=== PATIENT | female | born 1955 | race Caucasian/White ===

== ENCOUNTER → 2018-05-03 15:53 | Outpatient (CLI) | payer OTHER, SELFPAY ==
[2018-05-03 18:24] LABS: CRP < 2.90 mg/L (0.0-3.0)
[2018-05-05 16:10] LABS: Endomysial Antibody IgA Negative (Negative); Immunoglobulin A 257 mg/dL (87-352)
[2018-05-06 09:37] LABS: Hep C Antibodies 0.1 s/co ratio (0.0-0.9); t-Transglutaminase IgA <2 U/mL (0-3)
== END ==
PROVIDERS: Family Provider Physician Assistant; PCP Physician Assistant; Visit Provider Internal Medicine Gastroenterology
DX: R19.7 Diarrhea, unspecified (principal)
CPT/HCPCS: 36415; 82784; 83516; 86140; 86255; 86803

== ENCOUNTER → 2018-10-17 14:12 | Outpatient (CLI) | payer OTHER, SELFPAY ==
[2018-10-21 11:56] LABS: HPV HC, High Risk Negative (Negative)
== END ==
PROVIDERS: Visit Provider Obstetrics & Gynecology
DX: Z12.4 Encounter for screening for malignant neoplasm of cervix (principal); N95.0 Postmenopausal bleeding
CPT/HCPCS: 87624; 88175; G0145

== ENCOUNTER → 2020-06-12 11:31 | Outpatient (CLI) | payer OTHER, SELFPAY ==
[2020-06-12 13:14] LABS: ALB/GLOB Ratio 0.9 RATIO (0.9-2.4); AST(SGOT) 18 U/L (15-37); Alanine Aminotransfer ALT/SGPT 25 U/L (13-56); Albumin, Serum 3.7 g/dL (3.2-5.0); Alkaline Phosphatase 102 U/L (45-117); Anion Gap 0 (5-15); BUN 10 mg/dL (7-18); BUN/Creat Ratio 13.8 RATIO (10-20); Calcium,Total 9.5 mg/dL (8.5-10.1); Chloride 108 mmol/L (98-107); Cholesterol 220 mg/dL (200); Creatinine, Serum 0.73 mg/dL (0.55-1.02); EST Glomerular Filtration Rate 86 mL/min (>60); Est Glom Filt Rate - Afr Amer 104 mL/min (>60); Globulin 4.2 g/dL (2.2-4.2); Glucose 129 mg/dL (74-106); High Density Lipoprotein 56 mg/dL; Potassium 4.4 mmol/L (3.5-5.1); Protein, Total 7.9 g/dL (6.4-8.2); Sodium Level 141 mmol/L (136-145); Thyroid Stim Hormone (TSH) 0.28 uIU/mL (0.358-3.74); Triglycerides 104 mg/dL; Very Low Density Lipoprotein 21 mg/dL (5-40)
[2020-06-12 13:32] LABS: Microalbumin,Random Urine < 5.0 mg/L (NO RANGE EST.)
[2020-06-12 14:13] LABS: Vitamin B12 696 pg/mL (211-911); Vitamin D,25 Hydroxy 83.7 ng/mL
== END ==
PROVIDERS: Referring Provider Internal Medicine Endocrinology, Diabetes & Metabolism; Visit Provider Internal Medicine Endocrinology, Diabetes & Metabolism
DX: E03.8 Other specified hypothyroidism (principal); E06.3 Autoimmune thyroiditis; E10.42 Type 1 diabetes mellitus with diabetic polyneuropathy; E78.2 Mixed hyperlipidemia; K52.832 Lymphocytic colitis; E55.9 Vitamin D deficiency, unspecified
CPT/HCPCS: 36415; 80053; 80061; 82043; 82306; 82570; 82607; 84439; 84443

== ENCOUNTER → 2020-12-11 10:22 | Outpatient (CLI) | payer OTHER, SELFPAY ==
[2020-12-11 09:52] VITALS: BMI 21.9
[2020-12-11 12:57] LABS: Microalbumin,Random Urine 22.6 mg/L (NO RANGE EST.)
[2020-12-11 13:03] LABS: ALB/GLOB Ratio 0.8 RATIO (0.9-2.4); AST(SGOT) 18 U/L (15-37); Alanine Aminotransfer ALT/SGPT 25 U/L (13-56); Albumin, Serum 3.3 g/dL (3.2-5.0); Alkaline Phosphatase 127 U/L (45-117); Anion Gap 6 (5-15); BUN 8 mg/dL (7-18); BUN/Creat Ratio 10.3 RATIO (10-20); Calcium,Total 8.8 mg/dL (8.5-10.1); Chloride 105 mmol/L (98-107); Cholesterol 237 mg/dL (200); Creatinine, Serum 0.78 mg/dL (0.55-1.02); EST Glomerular Filtration Rate 80 mL/min (>60); Est Glom Filt Rate - Afr Amer 96 mL/min (>60); Glucose 143 mg/dL (74-106); High Density Lipoprotein 50 mg/dL; Potassium 3.7 mmol/L (3.5-5.1); Protein, Total 7.3 g/dL (6.4-8.2); Sodium Level 141 mmol/L (136-145); T4 Free Direct 1.49 ng/dL (0.76-1.46); Thyroid Stim Hormone (TSH) 1.99 uIU/mL (0.358-3.74); Triglycerides 117 mg/dL; Very Low Density Lipoprotein 23 mg/dL (5-40)
== END ==
PROVIDERS: PCP Physician Assistant; Referring Provider Internal Medicine Endocrinology, Diabetes & Metabolism; Visit Provider Internal Medicine Endocrinology, Diabetes & Metabolism
DX: E03.8 Other specified hypothyroidism (principal); E06.3 Autoimmune thyroiditis; E78.2 Mixed hyperlipidemia; E10.9 Type 1 diabetes mellitus without complications
CPT/HCPCS: 36415; 80053; 80061; 82043; 82570; 84439; 84443

== ENCOUNTER → 2021-07-21 12:46 | Outpatient (CLI) | payer OTHER, SELFPAY ==
--- NOTE | 2021-07-21 12:51 | CT_ITS ---
STUDY: CT ABDOMEN AND PELVIS WITH CONTRAST REASON FOR EXAM: Female, 66 years old. Enlarged lymph nodes. Diarrhea. RADIATION DOSAGE (If Supplied By Facility): CTDIvol = ( 11.165 ) mGy, DLP = ( 415.15 ) mGycm TECHNIQUE: Transaxial images were obtained from the dome of the diaphragm to the symphysis pubis without oral contrast. Oral and amp; IV Readi-CAT and amp; 100mL Isovue-370 was administered. Sagittal and coronal images were reconstructed. Individualized dose optimization techniques were used for this CT. COMPARISON: None. FINDINGS: The visualized lung bases are unremarkable. The visualized portions of the heart are within normal limits. There is decreased attenuation of the liver consistent with steatosis. Normal gallbladder and extrahepatic biliary system. Normal spleen. Normal pancreas. Normal bilateral adrenal glands. Normal right kidney. Normal left kidney. There is a small hiatal hernia. Normal small intestine. Moderate amount of fecal material is seen throughout the colon. The patient is status post appendectomy. Normal abdominal aorta. Normal inferior vena cava. Normal retroperitoneum. Normal urinary bladder. Distended urinary bladder. Normal abdominal wall. Normal osseous structures. CT/Abdomen/Pelvis WITH Contrast IMPRESSION: Moderate amount of fecal material is seen throughout the colon. Distended urinary bladder. Electronically Signed: Joe Alexander MD at 13:37 EDT , Service support ,
[2021-07-21 13:01] LABS: CREATININE FINGERSTICK 0.6 mg/dL (0.55-1.02); EGFR FINGERSTICK > 60.0000 mL/min (>60)
== END ==
PROVIDERS: PCP Physician Assistant; Referring Provider Surgery; Visit Provider Surgery
DX: R59.1 Generalized enlarged lymph nodes (principal)
CPT/HCPCS: 74177; Q9967; A4216

== ENCOUNTER → 2021-07-30 | Outpatient (CLI) | payer OTHER, SELFPAY ==
--- NOTE | 2021-07-30 13:00 | SOF_PTH ---
PATIENT: BABITA HAMM LOC: [facility] U#:[id number] AGE/SX: 66/F ROOM: RE07/30/[address]: Dr. Bri Chapman MD : 1955 BED: DIS: 07/30/2021 SPEC #: [id number] RECD: 07/30/21 15:33 STATUS: ROB REQ #: [id number] ASHIA: 07/30/21 13:[address]: Bri Chapman DEPT: SURGICAL PATHOLOGY RECD BY: Ana Roberts ENTERED: 07/31/21 11:53 SP TYPE: SOFT TISS OTHR DR: RUFINA Tran Tissues: Inguinal region, NOS Procedures: Surgery Specimen Level IV HEADER OPERATION: Right groin mass biopsy PRE-OP DIAGNOSIS: Right groin mass TISSUE SUBMITTED: Groin fluid cyst (too thick to aspirate), right groin mass MICROSCOPIC DIAGNOSIS Right groin cyst/mass, core biopsy: Fragments of fibroadipose tissue with minute fragment of benign lymphoid tissue. PETTY:[email or web address] 08/03/2021 COMMENT If there is high suspicion of lymphoma, excision of the lesion is suggested, if clinically indicated. Clinical correlation and appropriate follow up are necessary. Case has been reviewed in consultation with Dr. Gonzalez who concurs with the above diagnosis. IDC:AM MICROSCOPIC DESCRIPTION Slides are reviewed. GROSS DESCRIPTION Received in fixative is one container labeled with the patient's name and designated groin cyst/mass. The specimen consists of multiple irregular fragments of emerson soft tissue that in aggregate measure 2 x 0.5 x 0.1 cm. The specimen is totally submitted in one cassette. / PETTY:angelika 07/31/21 TC:5 CPT: 37547
== END | disposition home or self-care (01) ==
LOC: LABSPEC 16:17
PROVIDERS: PCP Physician Assistant; Referring Provider Surgery; Visit Provider Surgery
DX: R19.09 Other intra-abdominal and pelvic swelling, mass and lump (principal)
CPT/HCPCS: 88305

== ENCOUNTER 2021-08-19 08:22 | Day surgery (SDC) | payer OTHER, SELFPAY ==
[2021-08-19] VITALS (10 sets, daily range): BP systolic 74–112; BP diastolic 50–80; PULSE 49–67; RESP 10–18; TEMP 36.4–36.6; O2SAT 98–100; BMI 21.3
[2021-08-19] MEDS: Lactated Ringers 1,000 ML 100 ML IV ×2 (08:45→12:07)
--- NOTE | 2021-08-19 09:27 | PCM.HP.BLA ---
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 Is patient in pain?: No Allergies iodine Allergy (Severe, Verified 07/30/21 13:09) hives Penicillins Allergy (Severe, Verified 07/30/21 13:09) hives Medications zfjgyh-uawgraao-raddbhd 36,000-114,000-180,000 unit capsule,delay rel 2 cap PO TID #180 cap 06/12/20 [Rx Confirmed 07/30/21] Contour Next Test Strips #450 ea NS 09/22/20 [Rx Confirmed 07/30/21] Humalog U-100 Insulin 100 unit/mL subcutaneous solution 85 unit SC DAILY #80 ml NS 05/20/21 [Rx Confirmed 07/30/21] levothyroxine 100 mcg tablet See Rx Instructions PO DAILY #90 tab 05/20/21 [Rx Confirmed 07/30/21] diphenhydramine HCl 25 mg tablet 50 mg PO DIRECTED #1 tab 07/13/21 [Rx Confirmed 07/30/21] prednisone 50 mg tablet 50 mg PO DIRECTED #3 tab 07/13/21 [Rx Confirmed 07/30/21] ezetimibe 10 mg tablet 10 mg PO DAILY #90 tab 07/21/21 [Rx Confirmed 07/30/21] Is last menstrual period known: No Post menopausal: Yes Patient : No PFSH Medical History Diabetes type 1, controlled 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 Lymphadenopathy Lymphocytic colitis Mixed hyperlipidemia Osteopenia determined by x-ray Polyneuropathy due to type 1 diabetes mellitus Surgical History History of 3 sections History of appendectomy History of colonoscopy (~05/2018) Family History Father Heart disease CVA (cerebral vascular accident) Cancer skin Mother CVA (cerebral vascular accident) Heart disease Social History Smoking Status: Never smoker alcohol intake: current alcohol intake frequency: a few times a week Alcohol type: wine HPI HPI HPI: BABITA HAMM, is a 66 F who presents to the office today for aspiration versus biopsy of right groin cyst. CT abdomen pelvis was done just showed right groin cyst no obvious large lymph nodes in the right groin like previous ultrasound:, Left groin does have some smaller lymph nodes present. Patient still denies any pain in either groin. Exam Skin Other: Right groin palpable bulge about 1/2 to 2 cm consistent with the cyst seen on CT as well as bedside ultrasound, left groin some palpable smaller lymphadenopathy. Office Procedures Biopsy Provider Documentation Informed consent was obtained. The right groin was prepped draped in usual sterile fashion. Ultrasound guidance was used. 1% lidocaine with epinephrine was used for local anesthesia. 18-gauge needle was placed in the area of the cyst however no real fluid was obtained unsure if it was too thick or not. Did proceed with a biopsy of this area. 11 blade scalpel was used to make the incision in the skin. Initially used the achieved system and then did change the [employer] for additional biopsy. Biopsy specimens were sent to pathology. May be difficult to identify as there could be some other lymph node tissue that is in the biopsy that is not exactly from that cystic area. Incision was closed with Steri-Strips and OpSite. Patient tolerated procedure well. Alert Veterinary Science Teacher Yes Biopsy Lymphnode Biopsy: [id number] Lymphnode w Needle Procedure Time Out Time Out Informed consent given: Yes Consent signed: Yes Time out checklist: patient, procedure, site marked/identified, positioning of patient, supplies available, allergies confirmed and team agrees on procedure Time out date: 07/30/21 Time out time: 13:00 Assessment and Plan Assessment and Plan (1) Lymphadenopathy: Status: Acute (2) Groin cyst: Status: Acute Plan - Dr. Bri Chapman MD: Discussed with patient unsure the exact etiology of the right groin cyst. Unable to get an thing aspiration even though bedside ultrasound did show the needle was in the cyst. Call patient with pathology report. Follow-up depending on pathology report. Addendum: Did call patient with pathology report?benign lymphoid tissue. Since this still does not give us a good answer about the cyst did recommend patient having excision for definitive diagnosis. Described procedure including but not limited to risk of bleeding, infection, need for further surgery, and anesthesia. Patient was agreeable to proceed no further questions this time. Bri Chapman M.D. Pager: [phone] [facility] [address] [place] [address], [facility] [address] [place] [address] Office: [phone] Coding Level of Care Code Attention Veterinary Science Teacher Diagnoses Lymphadenopathy R59.1 Groin cyst CPT Codes Biopsy - Lymphnode Biopsy: 70470 Lymphnode w Needle ([id number]) 07/31/21 1247<Electronically signed by Bri Chapman MD>Date Bri Chapman MD
[2021-08-19] MEDS: Lidocaine 1% /Epi 1:100 (20ml) 20 ML Vial (11:00)
--- NOTE | 2021-08-19 11:01 | PCM.OPRPT ---
Report of Operation Date of Procedure: 08/19/21 Pre-Operative Diagnosis: Right groin cyst Post-Operative Diagnosis: Right femoral hernia Surgery/Procedure Performed:: Right femoral hernia repair with mesh Surgeon: Bri Chapman supervisor alteration workroom: Ruth Landeros Type of Anesthesia: Local MAC Anesthesiologist: Jose Luis Nassar Special Medications: Clindamycin 900 mg IV x1 Specimen's removed: None Estimated Blood Loss (mL): < 10 cc Description of Procedure: Indications: This is a 66-year-old female who developed presented with a right groin cyst. CT abdomen pelvis did not show an obvious hernia neither did exam. Attempted aspiration/biopsy which showed some benign lymphoid tissue. Patient was agreeable to exploration of the right groin. Description procedure: The patient was taken to the operating room. A timeout was completed verifying correct patient, procedure, site, positioning, and special equipment prior to beginning procedure. MAC anesthesia was induced. The right groin was prepped and draped in usual sterile fashion. An incision was marked in the natural skin crease overlying the cyst which was visualized with ultrasound. Local anesthesia of 1% lidocaine with epinephrine was used along the planned incision. Area was dissected and was found to have a femoral hernia about 7 mm in size, cyst was the actual hernia and this was opened to verify and just had serous fluid this was closed with 3-0 silk suture. Tissue was able to be reduced back into the abdomen. Half of the ultra Pro Monocryl/Prolene composite mesh was rolled into a cylinder and secured with silk sutures. This was placed in the femoral canal and sutured into place circumferentially with 3-0 silk sutures. Subdermal sutures of 3-0 Vicryl was used to close the incision and skin was closed with a running 4-0 Monocryl suture Steri-Strips and OpSite. Patient tolerated procedure well and sent to the postanesthesia care in stable condition. Grafts/Implants Used: Ultra Pro-Monocryl/Prolene composite lot [id number]
--- NOTE | 2021-08-19 11:07 | EX.PCM.DISCH ---
Discharge Instructions Diet Discharge Diet: Light diet - advance as tolerated Activity May shower in (days): 1 Lifting Restrictions: no lifting >20 lbs x 2 wks Dressing / Incision Call your doctor if your incision/area has: Continuous Slow Oozing, Sudden Increased Bleeding, Increased Pain/ Swelling, Increased Redness, Foul Smelling Discharge and Swelling at the incision site Call your doctor if you observe: Fever of 101 or Higher Remove Dressing in: 2 days Cleanse incision/area with: Soap & Water Additional Dressing/Incision Instructions:: Steri-Strips will fall off in 7 to 10 days, if they do not fall off okay to remove after 10 days. Follow Up Care Please Follow Up With: Bri Chapman MD When: Call the office for a follow-up appointment 2 weeks; after 5 PM and on the weekends call [phone] with any concerns. Test Results: Test results from this visit will be discussed in further detail at your follow-up appointment, if applicable. Discharge Plan Admission Attending Provider: Bri Chapman Primary Care Provider: Leigha Wiley Discharge Orders/Prescriptions Prescriptions: No Action Humulin U Insulin 100 unit/mL Suspension 10.4 unit SUBCUT DAILY RF: 0 levothyroxine 50 mcg Tablet 50 mcg PO SHELDON RF: 0 levothyroxine 100 mcg tablet 100 mcg PO MOTUWETHFRSA RF: 0 (DME) Contour Next Test Strips Strip See Rx Instructions .ROUTE .MEDSUPPLY Qty: 450 RF: 3 ezetimibe 10 mg tablet 10 mg PO DAILY Qty: 90 RF: 3 Referrals / Follow Up: Leigha Wiley PA [Primary Care Provider] - Disposition Disposition (needs filled in before D/C Order can be placed): Home, Self Care
== END 2021-08-19 13:54 | disposition home or self-care (01) ==
LOC: SDC 08:23 → AC 08:23
PROVIDERS: PCP Physician Assistant; Referring Provider Surgery; Visit Provider Surgery
PROC: (CPT 49553; principal; 2021-08-19 09:50)
DX: K41.30 Unilateral femoral hernia, with obstruction, without gangrene, not specified as recurrent (principal); E10.42 Type 1 diabetes mellitus with diabetic polyneuropathy; E78.2 Mixed hyperlipidemia; E06.3 Autoimmune thyroiditis; Z79.4 Long term (current) use of insulin; Z96.41 Presence of insulin pump (external) (internal); Z79.52 Long term (current) use of systemic steroids; Z79.899 Other long term (current) drug therapy; Z20.822 Contact with and (suspected) exposure to COVID-19
CPT/HCPCS: 49553; 87426; C9803; J7120; C1781; J2405

== ENCOUNTER 2021-12-15 10:58 | Outpatient (CLI) | payer OTHER, SELFPAY ==
[2021-12-15 13:03] LABS: Vitamin D,25 Hydroxy 86.4 ng/mL
[2021-12-15 13:15] LABS: ALB/GLOB Ratio 0.8 RATIO (0.9-2.4); AST(SGOT) 17 U/L (15-37); Alanine Aminotransfer ALT/SGPT 31 U/L (13-56); Albumin, Serum 3.5 g/dL (3.2-5.0); Alkaline Phosphatase 116 U/L (45-117); Anion Gap 2 (5-15); BUN 18 mg/dL (7-18); BUN/Creat Ratio 24.9 RATIO (10-20); Calcium,Total 8.9 mg/dL (8.5-10.1); Chloride 106 mmol/L (98-107); Cholesterol 185 mg/dL (200); Creatinine, Serum 0.72 mg/dL (0.55-1.02); EST Glomerular Filtration Rate 86 mL/min (>60); Est Glom Filt Rate - Afr Amer 104 mL/min (>60); Globulin 4.2 g/dL (2.2-4.2); Glucose 237 mg/dL (74-106); High Density Lipoprotein 61 mg/dL; Potassium 4.4 mmol/L (3.5-5.1); Protein, Total 7.7 g/dL (6.4-8.2); Sodium Level 138 mmol/L (136-145); T4 Free Direct 1.36 ng/dL (0.76-1.46); Thyroid Stim Hormone (TSH) 2.04 uIU/mL (0.358-3.74); Triglycerides 68 mg/dL; Very Low Density Lipoprotein 14 mg/dL (5-40)
[2021-12-15 13:21] LABS: Microalbumin:Creatinine Ratio 11.8 mg/g CRE (<30 mg/g CRE)
== END 2021-12-15 23:59 | disposition short-term general hospital (02) ==
LOC: BIMLAB 10:59
PROVIDERS: PCP Physician Assistant; Referring Provider Internal Medicine Endocrinology, Diabetes & Metabolism; Visit Provider Internal Medicine Endocrinology, Diabetes & Metabolism
DX: E10.42 Type 1 diabetes mellitus with diabetic polyneuropathy (principal); E03.8 Other specified hypothyroidism; E06.3 Autoimmune thyroiditis; E55.9 Vitamin D deficiency, unspecified; M85.80 Other specified disorders of bone density and structure, unspecified site; Z96.41 Presence of insulin pump (external) (internal)
CPT/HCPCS: 36415; 80053; 80061; 82043; 82306; 82570; 84439; 84443

== ENCOUNTER 2022-02-18 08:57 | Outpatient (CLI) | payer MEDICARE, OTHER, SELFPAY ==
--- NOTE | 2022-02-18 09:07 | BD_ITS ---
STUDY: DUAL ENERGY X-RAY ABSORPTIOMETRY / DXA REASON FOR EXAM: Female, 67 years old. Osteopenia TECHNIQUE: Bone Mineral Density (BMD) measurements of lumbar spine and bilateral hips were obtained. COMPARISON: None. FINDINGS: Lumbar Spine (L1-L4): g/cm2 (0.681) / T-score (-3.3) / Z-score (-1.6) Findings are suggestive of osteoporosis with a high fracture risk. Left Femur Total: g/cm2 (0.644) / T-score (-2.4) / Z-score (-1.2) Left Femoral Neck: g/cm2 (0.457) / T-score (-3.5) / Z-score (-2.0) Right Femur Total: g/cm2 (0.612) / T-score (-2.7) / Z-score (-1.5) Right Femoral Neck: g/cm2 (0.499) / T-score (-3.2) / Z-score (-1.6) BD/Dexa Bone Density Study IMPRESSION: The patient is considered osteoporotic as outlined below according to World Chandler Organization (WHO) criteria with a high fracture risk. Reference Information: The T-score is the number of standard deviations above or below the standard which is normal for young adults at their peak bone mineral density. The World Health Organization (WHO) interprets the T-scores as follows: Above -1 Normal bone density Between -1 and -2.5 Osteopenia Equal to / or below -2.5 Osteoporosis As a practical clinical guideline, osteopenia may be graded as follows: Mild -1 through -1.5 Moderate -1.6 through -2.0 Severe -2.1 through -2.4 The Z-score is the number of standard deviations above or below age-matched controls. A Z-score of less than -1.5 would be considered abnormal. References: 1. NIH Osteoporosis and Related Bone Diseases www osteo.org 2. International Society for Clinical Densitometry www iscd.org 3. National Osteoporosis Foundation www nof.org Electronically Signed: Joe Alexander MD at 14:41 EDT ,
== END 2022-02-18 23:59 | disposition home or self-care (01) ==
PROVIDERS: PCP Physician Assistant; Referring Provider Internal Medicine Endocrinology, Diabetes & Metabolism; Visit Provider Internal Medicine Endocrinology, Diabetes & Metabolism
DX: M85.89 Other specified disorders of bone density and structure, multiple sites (principal)
CPT/HCPCS: 77080

== ENCOUNTER → 2022-06-29 | Outpatient (CLI) | payer MEDICARE, OTHER, SELFPAY ==
[2022-06-29 14:50] VITALS: BP 120/60; PULSE 68; RESP 16; TEMP 37.1; O2SAT 97; BMI 21.1
[2022-06-29] MEDS: Zoledronic Acid 5 MG 100 ML 300 MG IV (14:54)
[2022-06-29] MEDS: 0.9% NaCl IVPB Med Flush (250 mL) 15 ML IV (14:55)
[2022-06-29] MEDS: 0.9% NaCl Peripheral Flush Adult/Peds IV (14:55)
[2022-06-29 15:25] VITALS: BP 110/63; PULSE 63; RESP 16; TEMP 37.1; O2SAT 96
== END | disposition home or self-care (01) ==
LOC: MEDOUTP 14:33
PROVIDERS: PCP Physician Assistant; Referring Provider Internal Medicine Endocrinology, Diabetes & Metabolism; Visit Provider Internal Medicine Endocrinology, Diabetes & Metabolism
DX: M85.80 Other specified disorders of bone density and structure, unspecified site (principal)
CPT/HCPCS: 96365; J7050; A4216; J3489

== ENCOUNTER → 2023-02-08 | Outpatient (CLI) | payer MEDICARE, OTHER, SELFPAY ==
[2023-02-08 17:00] LABS: ALB/GLOB Ratio 0.8 RATIO (0.9-2.4); AST(SGOT) 23 U/L (15-37); Alanine Aminotransfer ALT/SGPT 31 U/L (13-56); Albumin, Serum 3.6 g/dL (3.2-5.0); Alkaline Phosphatase 86 U/L (45-117); Anion Gap 6 (5-15); BUN 16 mg/dL (7-18); BUN/Creat Ratio 20.6 RATIO (10-20); Calcium,Total 9.1 mg/dL (8.5-10.1); Chloride 108 mmol/L (98-107); Cholesterol 183 mg/dL (200); Creatinine, Serum 0.78 mg/dL (0.55-1.02); EST Glomerular Filtration Rate 79 mL/min (>60); Est Glom Filt Rate - Afr Amer 96 mL/min (>60); Globulin 4.4 g/dL (2.2-4.2); Glucose 135 mg/dL (74-106); High Density Lipoprotein 53 mg/dL; Sodium Level 141 mmol/L (136-145); T4 Free Direct 1.25 ng/dL (0.76-1.46); Thyroid Stim Hormone (TSH) 1.48 uIU/mL (0.358-3.74); Triglycerides 70 mg/dL; Very Low Density Lipoprotein 14 mg/dL (5-40)
[2023-02-10 13:05] LABS: C-Peptide < 0.1 ng/mL (1.1-4.4)
== END | disposition home or self-care (01) ==
LOC: BIMLAB 11:44
PROVIDERS: Nurse Practitioner Family; PCP Physician Assistant; Referring Provider Internal Medicine Endocrinology, Diabetes & Metabolism; Visit Provider Internal Medicine Endocrinology, Diabetes & Metabolism
DX: E10.42 Type 1 diabetes mellitus with diabetic polyneuropathy (principal); E03.8 Other specified hypothyroidism; E06.3 Autoimmune thyroiditis; E55.9 Vitamin D deficiency, unspecified; M85.80 Other specified disorders of bone density and structure, unspecified site; Z96.41 Presence of insulin pump (external) (internal)
CPT/HCPCS: 36415; 80053; 80061; 82306; 84439; 84443; 84681

== ENCOUNTER 2023-07-12 12:28 | Outpatient (CLI) | payer MEDICARE, OTHER, SELFPAY ==
[2023-07-12 13:09] VITALS: BP 97/65; PULSE 64; RESP 16; TEMP 36.6; O2SAT 99; BMI 21.9
[2023-07-12] MEDS: Zoledronic Acid 5 MG 100 ML 300 MG IV (13:15)
[2023-07-12] MEDS: 0.9% NaCl Peripheral Flush Adult/Peds IV (13:15)
[2023-07-12 13:43] VITALS: BP 100/61; PULSE 61
== END 2023-07-12 12:29 | disposition home or self-care (01) ==
LOC: MEDOUTP 12:30
PROVIDERS: PCP Physician Assistant; Referring Provider Internal Medicine Endocrinology, Diabetes & Metabolism; Visit Provider Internal Medicine Endocrinology, Diabetes & Metabolism
DX: M85.80 Other specified disorders of bone density and structure, unspecified site (principal)
CPT/HCPCS: 96365; A4216; J3489

== ENCOUNTER → 2024-05-08 | Outpatient (CLI) | payer MEDICARE, OTHER, SELFPAY ==
[2024-05-08 13:32] LABS: Vitamin D,25 Hydroxy 40.5 ng/mL
[2024-05-08 13:39] LABS: ALB/GLOB Ratio 0.9 RATIO (0.9-2.4); AST(SGOT) 29 U/L (15-37); Alanine Aminotransfer ALT/SGPT 30 U/L (13-56); Albumin, Serum 3.5 g/dL (3.2-5.0); Alkaline Phosphatase 67 U/L (45-117); Anion Gap 2 (5-15); BUN 18 mg/dL (7-18); BUN/Creat Ratio 27.1 RATIO (10-20); Calcium,Total 8.9 mg/dL (8.5-10.1); Chloride 107 mmol/L (98-107); Cholesterol 169 mg/dL (200); Creatinine, Serum 0.66 mg/dL (0.55-1.02); EST Glomerular Filtration Rate 94 mL/min (>60); Est Glom Filt Rate - Afr Amer 114 mL/min (>60); Globulin 4.1 g/dL (2.2-4.2); Glucose 87 mg/dL (74-106); High Density Lipoprotein 59 mg/dL; Potassium 3.6 mmol/L (3.5-5.1); Protein, Total 7.6 g/dL (6.4-8.2); Sodium Level 139 mmol/L (136-145); T4 Free Direct 1.22 ng/dL (0.76-1.46); Thyroid Stim Hormone (TSH) 0.42 uIU/mL (0.358-3.74); Triglycerides 53 mg/dL; Very Low Density Lipoprotein 11 mg/dL (5-40)
[2024-05-08 14:27] LABS: Microalbumin,Random Urine 19.2 mg/L (NO RANGE EST.); Microalbumin:Creatinine Ratio 45.4 mg/g CRE (<30 mg/g CRE)
== END | disposition home or self-care (01) ==
PROVIDERS: PCP Physician Assistant; Referring Provider Internal Medicine Endocrinology, Diabetes & Metabolism; Visit Provider Internal Medicine Endocrinology, Diabetes & Metabolism
DX: E10.42 Type 1 diabetes mellitus with diabetic polyneuropathy (principal); E78.2 Mixed hyperlipidemia; M85.80 Other specified disorders of bone density and structure, unspecified site; E03.8 Other specified hypothyroidism; E06.3 Autoimmune thyroiditis; Z96.41 Presence of insulin pump (external) (internal); E55.9 Vitamin D deficiency, unspecified
CPT/HCPCS: 36415; 80053; 80061; 82043; 82306; 82570; 84439; 84443

== ENCOUNTER 2024-07-12 13:53 | Outpatient (CLI) | payer MEDICARE, OTHER, SELFPAY ==
[2024-07-12 14:06] VITALS: BP 116/62; PULSE 62; RESP 16; TEMP 36.2; O2SAT 99; BMI 22.3
[2024-07-12] MEDS: Zoledronic Acid 5 MG 100 ML 300 MG IV (14:32)
[2024-07-12] MEDS: 0.9% NaCl Peripheral Flush Adult/Peds IV (14:34)
[2024-07-12 14:59] VITALS: BP 104/66; PULSE 57
== END 2024-07-12 23:59 | disposition home or self-care (01) ==
LOC: MEDOUTP 13:54
PROVIDERS: PCP Physician Assistant; Referring Provider Internal Medicine Endocrinology, Diabetes & Metabolism; Visit Provider Internal Medicine Endocrinology, Diabetes & Metabolism
DX: M81.0 Age-related osteoporosis without current pathological fracture (principal)
CPT/HCPCS: 96365; A4216; J3489

== ENCOUNTER → 2025-06-03 | Outpatient (CLI) | payer MEDICARE, OTHER, SELFPAY ==
[2025-06-03 11:27] LABS: Creatinine, Urine (random) 157.00 mg/dL (28.00-217.00); Microalbumin,Random Urine < 12.0 mg/L (<20 mg/L)
[2025-06-03 12:11] LABS: AST(SGOT) 31 U/L (<=31); Alanine Aminotransfer ALT/SGPT 29 U/L (<=34); Albumin, Serum 3.9 g/dL (3.4-4.8); Alkaline Phosphatase 67 U/L (35-104); Anion Gap 10 (5-15); BUN 10 mg/dL (4-19); BUN/Creat Ratio 15.4 RATIO (10-20); Calcium,Total 9.1 mg/dL (7.6-11.0); Carbon Dioxide 25.3 mmol/L (21.0-32.0); Chloride 105 mmol/L (98-108); Cholesterol 212 mg/dL (<=200); Globulin 3.2 g/dL (2.2-4.2); Glucose 141 mg/dL (70-99); Low Density Lipoprotein Calc. 137 mg/dL; Potassium 3.8 mmol/L (3.3-5.1); Triglycerides 111 mg/dL; Very Low Density Lipoprotein 22 mg/dL (5-40); cholesterol:hdl ratio screen 3.98
[2025-06-03 12:12] LABS: Vitamin D,25 Hydroxy 38.7 ng/mL (30-100)
--- OUTSIDE RECORDS SUMMARY | 2025-06-03 19:56 | XMS RPT_ITS | CCD ---
Author Organization [facility] Care Team Providers Care Anchor Operator Name Role Phone TANNER KELLER Unavailable Unavailable Lomeli PA, PA Leigha Primary Care Provider Lomeli PA, PA Leigha Referring Provider Dr. Tricia Dey Attending Provider Lomeli PA, PA Leigha Primary Care Provider Lomeli PA, PA Leigha Referring Provider Dr. Tricia Dey Attending Provider Lomeli PA, PA Leigha Primary Care Provider Lomeli PA, PA Leigha Referring Provider Dr. Tricia Dey Attending Provider Lomeli PA, PA Leigha Primary Care Provider Lomeli PA, PA Leigha Referring Provider Dr. Tricia Dey Attending Provider Lomeli PA-C, Leigha J Unavailable Lomeli PA-C, Leigha J Unavailable Gastroenterology Provider Unavailable Vishal Vail MD, Dr. Escobar Unavailable Danette SRINIVASAN, Dr. Corona Guallpa Unavailable Vascular Surgeon Unavailable Unavailable General Surgery Provider Unavailable Unavail clifton Kathleen MD, Deysi Summers Unavailable Jessy Denton LPN Unavailable Tigre Estrella MD Unavailable Ruben ACEVEDO, Sharron Collins Unavailable Unavailable Juani Mckoy LPN Unavailable Unavailable Elvin Howe MD Unavailable Edgardo PADeliaC, Caroline Muñoz Unavailable NET MAKER-C, Arcenio Pepe Unavailable [phone] Beti BUSTOS, Caroline Astudillo Unavailable Unavaila ble Yared BUSTOS, Ivania Unavailable Mutersbaugh METAL FURNITURE GLAZIER, Mary Jo K Unavailable Unavai lable Anaya, Reyna L Unavailable Richert METAL FURNITURE GLAZIER, Brook L Unavailable Unavailab le Miguel METAL FURNITURE GLAZIER, Deysi M Unavailable Unavailab le Wengerd METAL FURNITURE GLAZIER, Ally Unavailable Unavailabl e Fenwick METAL FURNITURE GLAZIER, Vanessa N Unavailable Unavaila ble Unavailable Unavailable Ty SAMUELSC, Antoinette Quigley Unavailable Nilo METAL FURNITURE GLAZIER, Nora Borden Unavailable Unavailab le Cristina Badillo Unavailable Unavailable LOMELI, LEIGHA J Primary Care Unavailable LOMELI, LEIGHA J Consulting Unavailable LOMELI, LEIGHA J Attending Unavailable LOMELI, LEIGHA J Admitting Unavailable PROVIDER, UNKNOWN Consulting Unavailable LOMELI, LEIGHA J Consulting Unavailable TRICIA DEY MD Admitting Unavailable TRICIA DEY MD Primary Care Unavailable TRICIA DEY MD Attending Unavailable PROVIDER, UNKNOWN Consulting Unavailable Sarah Adkins Unavailable Unavailable Eva Prince MA Unavailable Unavailable Tricia Dey Attending Unavailable Tricia Dey Referring Unavailable Lomeli PA, Leigha Primary Care Unavailable Tricia Dey Attending Unavailable Lomeli PA, Leigha Primary Care Unavailable Lomeli PA, Leigha Referring Unavailable Tricia Dey Attending Unavailable Lomeli PA, Leigha Referring Unavailable Lomeli PA, Leigha Primary Care Unavailable Tricia Dey Attending Unavailable Lomeli PA, Leigha Referring Unavailable Lomeli PA, Leigha Primary Care Unavailable Tricia Dey Attending Unavailable Lomeli PA, Leigha Referring Unavailable Lomeli PA, Leigha Primary Care Unavailable Tricia Dey Attending Unavailable Tricia Dey Referring Unavailable Lomeli PA, Leigha Primary Care Unavailable Lomeli PA, Leigha Primary Care Provider Lomeli PA, Leigha Referring Provider [phone] King ZARINA, Dr. Santo Attending Provider Dr. Tricia Dey MD Referring Provider Allergies Allergy Classification Reported Allergen(s) Allergy Type Date of Onset Reaction(s) Facility Penicillins (antibiotic) (2 sources) Penicillins Drug Allergy [facility], [facility], [email or web address]. Povidone-Iodine (2 sources) Povidone-Iodine Drug Allergy [facility], [employer] [facility] (5 sources) Iodine Drug Allergy [address] [facility] (20 sources) Penicillins; Translations: [Penicillins] Allergy to substance 2 [facility], Edema [facility] (20 sources) Povidone-Iodine; Translations: [BETADINE] Drug Allergy [email or web address] (1 source) Penicillin Drug Allergy [facility] (1 source) Iodine Drug Allergy 5 [facility] Medications Current Medications Medication Drug Class(es) Dates Sig (Normalized) Sig (Original) cholecalciferol 0.125 mg oral capsule (20 sources) Vitamin D Start: 02-09-2024 Cholecalciferol (Vitamin D3) 125 mcg (5,000 unit) capsule Active 125 ug PO .3 times per week February 09, 2024 11:30am Start: 11-11-2022 End: 02-09-2024 take 1 capsule by mouth once daily Cholecalciferol (Vitamin D3) 125 mcg (5,000 unit) capsule Discontinued 125 ug PO DAILY November 11, 2022 1:00am February 09, 2024 11:31am Start: 05-13-2022 End: 11-11-2022 take 1 capsule by mouth once daily Cholecalciferol (Vitamin D3) 250 mcg (10,000 unit) capsule Discontinued 250 ug PO DAILY May 13, 2022 12:00am November 11, 2022 12:18pm take 1 tablet by th once daily Vitamin D 50 MCG (1999 UT) Oral Tablet ; daily (50 MCG (1999 UT)) Vitamin D3 125 m cg (5,000 unit) tablet ; 1 tab Mon, Wed, Tuesday (125 mcg (5,000 uni) CoQ10 SG 100 (12 sources) CoQ10 SG 100 insulin lispro 100 unt/ml injectable solution (20 sources) Insulin Analog Start: 12-15-2021 End: 06-03-2025 Insulin Lispro (Humalog U-100 Insulin) 100 unit/mL solution Active 85 U SC DAILY 80 3 June 03, 2025 10:34am Start: 12-15-2021 End: 12-15-2021 Insulin Lispro 100 unit/mL solution Discontinued 1 sliding scale dose continuous subcutaneous infusion December 15, 2021 1:00am December 15, 2021 11:41am Start: 08-25-2020 End: 05-20-2021 Insulin Lispro (Humalog U-10 0 Insulin) 100 unit/mL solution Discontinued 85 U SC DAILY 80 3 January 09, 2021 4:51pm May 20, 2021 1:04pm Start: 06-12-2020 End: 08-25-2020 Insulin Lispro 100 unit/mL solution Discontinued 75 U SC .continuously 10 0 June 12, 2020 12:00am August 25, 2020 11:35am via insulin pump Start: 03-16-2016 inject 1 [IU] by sub cutaneous injection once, then inject 0.25 [IU] by subcutaneous injection every hour HUMALOG, 100UNIT/ML (Subcutaneous Solution) ; as directed per insulin pump for 0 days Quantity: 6 {Vial} Refills: 3 Ordered: 16-Mar-2016 MD Deysi Kathleen Start: 16-Mar-2016 Comments: Mail order. average basal rate: 14.58units/24 hours; 1 unit per 10g [id number] 0.3 U/h, 2am-4am 0.3 U/h, ,4am-6am 0.65 U/h, 6-10am 0.75 U/h, 10a-5:30p 0.7 U/h 5:30-11pm 0.65 U/h, 11pm-12am 0.25 U/h Comment on above: Mail order. average basal rate: 14.58units/24 hours; 1 unit per 10g [id number] 0.3 U/h, 2am-4am 0.3 U/h, ,4am-6am 0.65 U/h, 6-10am 0.75 U/h, 10a-5:30p 0.7 U/h 5:30-11pm 0.65 U/h, 11pm-12am 0.25 U/h Insulin Zinc Extended Human (Humulin U Insulin) 100 unit/mL Suspension (5 sources) Start: 08-18-2021 Insulin Zinc Extended Human (Humulin U Insulin) 100 unit/mL Suspension Active 10.4 UNIT SC DAILY August 18, 2021 8:15am Start: 08-18-2021 End: 11-11-2022 Insulin Zinc Extended Human (Humulin U Insulin) 100 unit/mL Suspension Discontinued 10.4 U SC DAILY August 18, 2021 12:00am November 11, 2022 12:19pm BASAL RATE/PUMP Start: 08-18-2021 End: 11-11-2022 Insulin Zinc Extended Human (Humulin U Insulin) 100 unit/mL Suspension Discontinued 10.4 UNIT SC DAILY August 18, 2021 12:00am November 11, 2022 12:19pm Start: 08-18-2021 Insulin Zinc E xtended Human (Humulin U Insulin) 100 unit/mL Suspension Active 10.4 UNIT SC DAILY August 18, 2021 12:00am MCT Oil (12 sources) MCT Oil Multivitamin (Daily Multi-Vitamin) tablet (4 sources) Start: 05-13-2022 Multivitamin ( Daily Multi-Vitamin) tablet Active 1 {tbl} PO DAILY May 13, 2022 12:00am Start: 05-13-2022 take 1 tablet by sulaiman th once daily Multivitamin (Daily Multi-Vitamin) tablet Active 1 TABLET PO DAILY May 13, 2022 12:00am Multivitamin Oral Tablet (20 sources) Multivitamin Ora l Tablet ; daily omega 8-gcy-pew-fish oil (12 sources) omega 3-dha-epa- fish oil Zinc Gluconate (12 sources) zinc gluconate ; 1 on M, W, F 100 ml zoledronic acid 0.05 mg/ml injection (8 sources) Bisphosphonate Start: 06-14-2022 End: 06-03-2025 Zoledronic Gojd-Uvcyfzof-Ygdth 5 mg/100 mL piggyback Active 1 NMA .Route ONCE 100 0 June 03, 2025 10:48am infuse over 20 minutes Completed/Discontinued Medications Medication Drug Class(es) Dates Sig (Normalized) Sig (Original) [id number] 200 actuat albuterol 0.09 mg/actuat metered dose inhaler (20 sources) beta2-Adrenergic Agonist Start: 11-10-2023 End: 02-09-2024 Albuterol Sulfate 90 mcg/actuation HFA aerosol inhaler Discontinued 2 NMA INHALATION EVERY 6 HOURS as needed for shortness of breath or wheezing 6.7 0 November 10, 2023 1:00am February 09, 2024 11:08am Start: 11-17-2018 End: 12-10-2019 take 2 puff(s) by inhalation every four to six hours as needed ProAir HFA 108 (90 Base) MCG/ACT Inhalation Aerosol Solution ; 2 (two) Puff Puff every 4-6 hours as needed for 0 days Quantity: 1 {Inhaler} Refills: 0 Ordered: 10-Dec-2019 FACUNDO Lomeli Start: 17-Nov-2018 End: 10-Dec-2019 Status: Inactive Comments: Medication taken as needed. ok to substitute with ventolin if cheaper Comment on above: Medication taken as needed. ok to substitute with ventolin if cheaper aspirin 81 mg chewable tablet (20 sources) Platelet Aggregation Inhibitor, Nonsteroidal Anti-inflammatory Drug Start: 11-17-2016 End: 12-17-2016 take 1 tablet by mouth once daily Aspirin Low Dose 81 MG Oral Tablet Chewable ; 1 (one) Tablet Chewable daily for 30 days Quantity: 30 {Tablet} Refills: 0 Ordered: 19-Jan-2017 ANA Dey Start: 17-Nov-2016 End: 17-Dec-2016 Status: Inactive Comments: otc take 1 tablet by mouth once juan y ASPIRIN LOW DOSE, 81MG (Oral Tablet) ; 1 daily (81 MG) Status: Inactive Comment on above: otc azithromycin 250 mg oral tablet (20 sources) Macrolide Antimicrobial Start: 11-26-2020 End: 12-01-2020 Zithromax Z-Susu 250 MG Oral Tablet ; 2 (two) Tabs day one, then one daily for 4 days for 5 days Quantity: 1 {Tablet} Refills: 0 Ordered: 26-Nov-2020 FACUNDO Lomeli Start: 26-Nov-2020 End: 01-Dec-2020 Status: Inactive Start: 11-17-2018 End: 11-22-2018 Azithromycin 250 MG Oral Tab let ; 2 (two) Tablet today and then 1 tablet daily x 4 days for 5 days Quantity: 1 {Package} Refills: 0 Ordered: 17-Nov-2018 FACUNDO Lomeli Start: 17-Nov-2018 End: 22-Nov-2018 Status: Inactive Start: 05-06-2015 End: 05-11-2015 AZITHROMYCIN, 250MG (Oral Ta blet) ; 1 (one) Tablet today, then 1 tablet daily for 4 days for 5 days Quantity: 6 {Tablet} Refills: 0 Ordered: 06-May-2015 MD Deysi Kathleen Start: 06-May-2015 End: 11-May-2015 Status: Inactive Start: 02-03-2011 End: 02-06-2011 take 1 tablet by mouth once daily ZITHROMAX TRI-SUSU, 500MG (Oral Tablet) ; 1 tablet Tablet daily for 3 days Quantity: 3 {Tablet} Refills: 0 Ordered: 03-Feb-2011 KRISTINA Williamson Start: 03-Feb-2011 End: 06-Feb-2011 Status: Inactive betamethasone 0.5 mg/ml / clotrimazole 10 mg/ml topical cream (20 sources) Azole Antifungal, Corticosteroid Start: 09-22-2016 End: 08-17-2017 Lotrisone 1-0.05 % External Cream ; 1 (one) Cream two times daily for 0 days Quantity: 15 {Gram} Refills: 0 Ordered: 17-Aug-2017 KRISTINA Mckoy Start: 22-Sep-2016 End: 17-Aug-2017 Status: Inactive Calcium Carbonate / Ergocalciferol (20 sources) Provitamin D2 Compound Calcium-Vitamin D Status: Inactive Cinnamon Bark (20 sources) Cinnamon Status: Inactive ciprofloxacin 250 mg oral tablet (20 sources) Quinolone Antimicrobial Start: 02-08-2013 End: 02-13-2013 take 1 tablet by mouth twice daily CIPRO, 250MG (Oral Tablet) ; 1 Tablet BID for 5 days Quantity: 10 {Tablet} Refills: 0 Ordered: 08-Feb-2013 FACUNDO Lomeli Start: 08-Feb-2013 End: 13-Feb-2013 Status: Inactive estradiol 0.1 mg/ml vaginal cream (20 sources) Estrogen Start: 10-01-2021 End: 07-13-2023 estradioL 0.01% (0.1 mg/gram) vaginal cream ; 0.5 gram daily x 1 week and then use 1-3 times per week as needed for 0 days Quantity: 42.5 {Gram} Refills: 0 Ordered: 13-Jul-2023 KRISTINA Rivera Start: 01-Oct-2021 End: 13-Jul-2023 Status: Inactive Comments: Medication taken as needed. Comment on above: Medication taken as needed. estrogens, conjugated (mcc) 0.625 mg/ml vaginal cream (20 sources) Estrogen Start: 09-23-2021 End: 10-01-2021 Premarin 0.625 MG/GM Vaginal Cream ; 0.5 gram daily x 2 weeks and then decrease to twice a week for 0 days Quantity: 45 {Gram} Refills: 1 Ordered: 01-Oct-2021 FACUNDO Lomeli Start: 23-Sep-2021 End: 01-Oct-2021 Status: Inactive ezetimibe 10 mg oral tablet (20 sources) Dietary Cholesterol Absorption Inhibitor Start: 12-12-2020 End: 06-03-2025 take 1 tablet by mouth once daily Ezetimibe 10 mg tablet Discontinued 10 mg PO DAILY 90 3 April 05, 2022 3:48pm February 08, 2023 10:24am Fish Oil Concentrate (20 sources) Fish Oil Concentrate Status: Inactive 120 actuat fluticasone propionate 0.044 mg/actuat metered dose inhaler (20 sources) Corticosteroid Start: 11-26-2020 End: 07-13-2023 take 2 puff(s) by inhalation twice daily Flovent HFA 44 mcg/actuation aerosol inhaler ; 2 (two) Puff BID for 0 days Quantity: 1 {Inhaler} Refills: 0 Ordered: 13-Jul-2023 KRISTINA Rivera Start: 26-Nov-2020 End: 13-Jul-2023 Status: Inactive homatropine methylbromide 0.3 mg/ml / HYDROcodone bitartrate 1 mg/ml oral solution (20 sources) Opioid Agonist, Cholinergic Muscarinic Agonist Start: 02-03-2011 End: 02-13-2011 HYDROCODONE-HOMAT ROPINE, 5-1.5MG/5ML (Oral Syrup) ; 1 (one) teaspoon(s) every four hours as needed for cough for 10 days Quantity: 4 {ounce(s)} Refills: 0 Ordered: 03-Feb-2011 KRISTINA Williamsonity Carlos Start: 03-Feb-2011 End: 13-Feb-2011 Status: Inactive Comments: Medication taken as needed. May cause drowsiness Comment on above: Medication taken as needed. May cause drowsiness ketoconazole 20 mg/ml topical cream (20 sources) Azole Antifungal Start: 08-17-2017 End: 04-13-2018 Ketoconazole 2 % External Cream ; 1 (one) application(s) Twice daily for 0 days Quantity: 60 {Gram} Refills: 1 Ordered: 13-Apr-2018 KRISTINA Aguilar Start: 17-Aug-2017 End: 13-Apr-2018 Status: Inactive levoFLOXacin 500 mg oral tablet (20 sources) Quinolone Antimicrobial Start: 05-26-2012 End: 05-29-2012 take 1 tablet by mouth once daily LEVAQUIN, 500MG (Oral Tablet) ; 1 Tablet daily for 3 days Quantity: 3 {Tablet} Refills: 0 Ordered: 26-May-2012 MD Deysi Kathleen Start: 26-May-2012 End: 29-May-2012 Status: Inactive levothyroxine sodium 0.1 mg oral tablet (20 sources) l-Thyroxine Start: 08-18-2021 End: 11-09-2021 Levothyroxine 50 mcg Tablet Discontinued 50 ug PO SHELDON August 18, 2021 12:00am November 09, 2021 11:20am Start: 06-12-2020 End: 11-20-2024 Levothyroxine 100 mcg tablet Discontinued 100 ug PO .COMPLEX 90 0 June 28, 2022 9:34am August 12, 2022 10:54am 100 mcg PO One daily, 1/2 on Sundays; Start: 03-16-2016 Levothyroxine Sodium 112 MCG Oral Tablet ; 1 (one)pill ,T,, AND 1/2 Tablet pill tue. for 0 days Quantity: 90 {Tablet} Refills: 3 Ordered: 16-Mar-2016 KRISTINA Aguilar Start: 16-Mar-2016 Comments: Mail order. Comment on above: Mail order. Memory Booster (20 sources) Memory Booster Status: Inactive Multivitamins (20 sources) Multivitamins Status: Inactive niacin 500 mg extended release oral tablet (20 sources) Nicotinic Acid take 1 tablet by mouth once daily NIACIN ER, 500MG (Oral Tablet Extended Release) ; 1 daily (500 MG) Status: Inactive nitroglycerin 0.4 mg sublingual tablet (20 sources) Nitrate Vasodilator Start: 11-17-19 17 End: 11-19-19 19 Nitrostat 0.4 MG Sublingual Tablet Sublingual ; 1 (one) Tab Sublingual Tab Sublingual every 5 minutes X 3 doses max for 0 days Quantity: 1 {Bottle} Refills: 0 Ordered: 19-Nov-2018 FACUNDO Lomeli Start: 17-Nov-2016 End: 19-Nov-2018 Status: Inactive Comments: If pain persists after 2 doses call EMS Comment on above: If pain persists aft er 2 doses call EMS omeprazole 20 mg delayed release oral capsule (20 sources) Proton Pump Inhibitor Start: 04-13-20 18 End: 11-17-19 19 Omeprazole 20 MG Oral Capsule Delayed Release ; 1 (one) Capsule Capsule 30 minutes before first meal of day for 0 days Quantity: 30 {Capsule} Refills: 0 Ordered: 17-Nov-2018 KRISTINA Aguilar Start: 13-Apr-2018 End: 17-Nov-2018 Status: Inactive predniSONE 20 mg oral tablet (20 sources) Start: 04-10-20 End: 08-24-20 24 predniSONE 20 mg tablet ; 1 Tablet as directed for 0 days Quantity: 12 {Tablet} Refills: 0 Ordered: 24-Aug-2024 KRISTINA Rivera Start: 10-Apr-2024 End: 24-Aug-2024 Status: Inactive Comments: Take 2 tablets daily for the first 4 days, then 1 tablet daily for 4 days Comment on above: Take 2 tablets daily for the first 4 days, then 1 tablet daily for 4 days triamcinolone acetonide 0.25 mg/ml topical cream (20 sources) Corticosteroid Start: 09-22-20 16 End: 08-17-20 17 Triamcinolone Acetonide 0.025 % External Cream ; 1 (one) application(s) four times daily for 0 days Quantity: 80 {Gram} Refills: 0 Ordered: 17-Aug-2017 KRISTINA Mckoy Start: 22-Sep-2016 End: 17-Aug-2017 Status: Inactive Problems Active Problems Problem Classification Problem Date Documented Da te Episodic/Chronic Abdominal hernia (5 sources) Right femoral hernia; Translations: [Unilateral femoral hernia, without obstruction or gangrene, not specified as recurrent] 09-03-2021 Episodic Comment on above: s/p hernia repair wi th mesh Acute bronchitis (20 sources) Acute bronchitis; Translations: [Acute bronchitis, unspecified] 02-03-2011 Episodic Administrative/social admission (20 sources) Issue of repeat prescriptions 05-26-2012 Episodic Allergic reactions (20 sources) Eczema; Translations: [Dermatitis, unspecified] 09-22-2016 Episodic Blindness and vision defects (2 sources) Bilateral myopia of eyes; Translations: [Myopia, bilateral] 06-28-2023 Episodic Chronic obstructive pulmonary disease and bronchiectasis (20 sources) Bronchitis; Translations: [Bronchitis, not specified as acute or chronic] 11-15-2019 Episodic Diabetes mellitus with complications (11 sources) Polyneuropathy due to type 1 diabetes mellitus; Translations: [Type 1 diabetes mellitus with diabetic polyneuropathy] Onset: 02-25-2025 Chronic Diabetes mellitus without complication (20 sources) Type 1 diabetes mellitus; Translations: [Type 1 diabetes mellitus without complications] Chronic Comment on above: uses insulin pump Diabetes mellitus without complication (13 sources) Insulin pump present; Translations: [Presence of insulin pump (external) (internal)] Onset: 02-25-2025 Episodic Diabetes or abnormal glucose tolerance complicating ; childbirth; or the puerperium (20 sources) Gestational diabetes mellitus 10-14-2011 Episodic Disorders of lipid metabolism (20 sources) Mixed hyperlipidemia; Translations: [Mixed hyperlipidemia] Onset: 02-25-2025 Chronic Immunizations and screening for infectious disease (20 sources) Needs influenza immunization; Translations: [Encounter for immunization] 10-27-2015 Episodic Lymphadenitis (20 sources) Lymphadenopathy; Translations: [Generalized enlarged lymph nodes] 07-13-2021 Episodic Menopausal disorders (20 sources) Atrophic vaginitis; Translations: [Postmenopausal atrophic vaginitis] 07-13-2023 Chronic Mycoses (20 sources) Dermatophytosis; Translations: [Dermatophytosis, unspecified] 11-15-2019 Episodic Noninfectious gastroenteritis (5 sources) Lymphocytic colitis; Translations: [Lymphocytic colitis] 06-12-2020 Chronic Nonspecific chest pain (20 sources) Atypical chest pain; Translations: [Other chest pain] 12-03-2019 Episodic Nutritional deficiencies (1 source) Vitamin D deficiency, unspecified; Translations: [Vitamin D deficiency, unspecified] Onset: 02-25-2025 Chronic Osteoporosis (20 sources) Osteoporosis; Translations: [Age-related osteoporosis without current pathological fracture] Onset: 07-24-2024 07-13-2023 Chronic Other and unspecified benign neoplasm (20 sources) Benign neoplasm of skin, site unspecified 10-20-2012 Episodic Other bone disease and musculoskeletal deformities (4 sources) X-ray evidence of poor mineralization; Translations: [Other specified disorders of bone density and structure, unspecified site] 06-12-2020 Episodic Other bone disease and musculoskeletal deformities (7 sources) Other specified disorders of bone density and structure, unspecified site; Translations: [Disorder of bone and cartilage, unspecified] Onset: 02-25-2025 Episodic Other bone disease and musculoskeletal deformities (2 sources) Osteopenia; Translations: [Other specified disorders of bone density and structure, unspecified site] 06-12-2020 Episodic Other congenital anomalies (20 sources) History of congenital disease of hip; Translations: [Personal history of (corrected) congenital malformations of integument, limbs and musculoskeletal system] 07-13-2023 Episodic Comment on above: treated with splinti ng as a young and did not cause problems for her Other connective tissue disease (20 sources) Muscle pain; Translations: [Myalgia, unspecified site] 12-03-2019 Episodic Other gastrointestinal disorders (2 sources) Diarrhea, unspecified; Translations: [Diarrhea, unspecified] Onset: 05-11-2018 Episodic Other gastrointestinal disorders (20 sources) Diarrhea; Translations: [Diarrhea, unspecified] 12-03-2019 Episodic Other gastrointestinal disorders (20 sources) Heartburn; Translations: [Heartburn] 07-13-2023 Episodic Other screening for suspected conditions (not mental disorders or infectious disease) (20 sources) Patient encounter status; Translations: [Encounter for other screening for malignant neoplasm of breast] 07-13-2023 Episodic Other skin disorders (20 sources) Epidermoid cyst of skin of groin; Translations: [Epidermal cyst] 06-28-2022 Episodic Other upper respiratory infections (20 sources) Acute sinusitis, unspecified 07-27-2010 Episodic Residual codes; unclassified (20 sources) Body mass index 20-24 - normal; Translations: [Body mass index (BMI) 21.0-21.9, adult] 11-15-2019 Episodic Spondylosis; intervertebral disc disorders; other back problems (8 sources) Backache; Translations: [Dorsalgia, unspecified] 01-01-2025 Episodic Sprains and strains (20 sources) Low back strain; Translations: [Strain of muscle, fascia and tendon of lower back, initial encounter] 05-06-2015 Episodic Thyroid disorders (20 sources) 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 Unclassified (20 sources) Rash - The onset of the rash has been gradual and has been occurring in a persistent pattern for 2 months. The course has been increasing. The rash is characterized as red, crusty, weeping and raised above the skin. The rash was first seen on the upper extremity (left arm). It spread to the upper extremity (left arm, new areas). There has been associated itching, drainage and erythema. There has been no associated chills or fever. Note for Rash: she saw PAMELA last fall and wasreated for possible ringworm. she has seen dermatology in the [facility] and was not dx w any chronic skin issues. 08-17-2017 Unclassified (20 sources) Follow up for multiple chronic conditions - The patient is here for follow-up of hyperlipidemia and diabetes. The patient always takes the prescribed medications. No side effects noted. The patient has an active lifestyle but no regular exercise program. The patient's glucose levels are monitored daily and out of office blood pressure checks occur rarely. Note for Multiple chronic conditions follow-up: Would like to discuss her having tingling of her bilateral hands/fingers (has had chronically for some time). The fingertips of the right hand only turned completely white (both episodes were associated with finger tingling). This episode occurred while driving. The day was not a cold one. She rubbed her fingers and the color went back to normal. She has not been doing any known repetitive activites with her hands. Has noted that she is dropping things more. It has not recurred.Has been taking essential oils and she has been taking a capsule with lemongrass oil (for cholesterol) and sometimes will burn in the back of her throat. Later one night after noting irritation with her lemongrass dose, she had some chest discomfort at night before going to bed, right sided under breast. Recurred one time (brief, mild); non exertional. 10-27-2015 Unclassified (20 sources) Follow up for multiple chronic conditions - The patient is here for follow-up of hyperlipidemia and diabetes. The patient always takes the prescribed medications. No side effects noted. The patient has an active lifestyle but no regular exercise program. The patient's glucose levels are monitored daily (few low sugars; does note fastings are higher than they used to be, but she is concerned to increase insulin dose to prevent lows). Note for Multiple chronic conditions follow-up: Patient does complain of bilateral hip pain off and on. It's never both at the same time and she never knows when it is going to come on. When it occurs its almost like she can't support her weight.Has had issues with her hip her whole adult life; occ pain and feeling it would pop out of place when walking; now more painful; lateral hips; occ radiates to groin 10-25-2014 Unclassified (20 sources) Follow Up for Multiple Chronic Conditions - The patient is here for follow-up of hyperlipidemia, diabetes and other condition(s) (hypothyroid). The patient always takes the prescribed medications. No side effects noted. The patient has an active lifestyle but no regular exercise program. The patient's glucose levels are monitored daily. Note for Multiple chronic conditions follow-up: Patient has a dry spot on her right cheek near her ear. Has been present for years, but keeps forgetting to ask about it. Also has noticed some dark spots appearing on her bilateral arms, would like those looked at. reviewed by diane 10-26-2013 Unclassified (20 sources) Follow Up for Multiple Chronic Conditions - The patient is here for follow-up of hyperlipidemia, diabetes and other condition(s) (hypothyroid). The patient always takes the prescribed medications. No side effects noted. The patient's glucose levels are monitored daily. 07-20-2013 Unclassified (20 sources) Well Adult, female - The patient feels well with no complaints, has good energy level and is sleeping well. The patient has a balanced diet and takes no supplemental vitamins & iron (has went off of her supplements just to see if it makes a difference in her bloodwork and how she feels.). The patient exercises none (nothing regular but is very active). Note for Well Adult, female: reviewed by diane 04-20-2013 Unclassified (20 sources) Follow Up for Multiple Chronic Conditions - The patient is here for follow-up of hyperlipidemia, diabetes and other condition(s) (hypothyroidism). The patient always takes the prescribed medications. No side effects noted. The patient engages in regular exercise program 1-3 times per week. The patient's glucose levels are monitored several time(s) per day and out of office blood pressure checks occur rarely. Note for Multiple chronic conditions follow-up: Pt also has 1 lesion on her chest area she would like removed today. reviewed by DIANE 10-20-2012 Unclassified (2 sources) Well Adult, female - The patient feels well with minor complaints (has a mole that is bothering her b/c it rubs on bra and is getting bigger; no bleeding). 04-14-2012 Unclassified (2 sources) [ADDITIONAL REASON] Follow Up for Multiple Chronic Conditions - The patient is here for follow-up of hyperlipidemia and diabetes. The patient always takes the prescribed medications. No side effects noted. The patient engages in regular exercise program 1-3 times per week. The patient's glucose levels are monitored daily (six times daily, has been good). 04-14-2012 Unclassified (20 sources) Follow-up for multiple chronic conditions (RAH) - The patient is here for follow-up of diabetes and other condition(s) (hypothyroid). The patient always takes the prescribed medications. No side effects noted. The patient's glucose levels are monitored several time(s) per day. Note for Follow-up for multiple chronic conditions (RAH): -1) Last rx of levothyroxine was written for #60 but sig stated she skips 2 days a week. Therefore, ins only dispensed #45. She pays the same anaya for either quantity. She wonders if rx can be rewritten for #60 and not state that she skips.2) Last rx humalog was written for #6 vials with sig: as directed thru pump. She was contacted by ins and gave them pump info. They only sent her 3 vials. She forgot to include the amount of insulin she self injects prior to meals. Asking for new script with clearer instructions.3) Since last visit she has had some right lower leg (anterior) numbness. Feels it might be improving, but still decreased sensation. No pain. Separately, has occ tingling down leg from back. No chronic back issues or pain.4) She declines a flu vaccine. 10-14-2011 Unclassified (20 sources) Follow-up for multiple chronic conditions (RAH) - The patient is here for follow-up of hyperlipidemia, diabetes and other condition(s) (hypothyroidism and menopause). The patient always takes the prescribed medications. No side effects noted. The patient has an active lifestyle but no regular exercise program (plans to resume fall/winter exercise next week). The patient's glucose levels are monitored daily (4-6 times daily). The patient has been seen by an eyewear manufacturing tech in the past 12 months and experienced symptoms of low blood sugar more than once since the last rtn visit, but has not experienced changes in vision since the last visit, had numbness in the feet, had tingling in the feet or had burning in the feet. Note for Follow-up for multiple chronic conditions (RAH): Reports that pump broke 2 weeks ago and when she got new one, she is not sure she remembered her previous basal rates and bolus rates. Notes sugars have been fluctuating since adjusted altho better now. Thinks her A1c may be higher today b/c of this.If goes low it is in middle of night, but recently she has had more higher sugars in AM and no lows. 07-15-2011 Unclassified (20 sources) Follow up for multiple chronic conditions - The patient is here for follow-up of diabetes. The patient always takes the prescribed medications. No side effects noted. The patient has an active lifestyle but no regular program. The patient's glucose levels are monitored daily (Have been within normal limits per patient. Had a vial of test strips that didn't work right around the time of blood work in Sep so she thinks sugar may have been off then. Does have occasional hypoglycemia; hasn't changed pump for a long time so may have been related to changes in diet.). Note for Follow up for multiple chronic conditions: Pt has no concerns today 11-16-2010 Unclassified (20 sources) Follow Up for Multiple Chronic Conditions - The patient is here for follow-up of hyperlipidemia and diabetes. The patient always takes the prescribed medications. No side effects noted. The patient engages in regular exercise program 1-3 times per week. The patient's glucose levels are monitored daily (six times daily, has been good). 04-14-2012 Unclassified (20 sources) [ADDITIONAL REASON] Well Adult, female - The patient feels well with minor complaints (has a mole that is bothering her b/c it rubs on bra and is getting bigger; no bleeding). 04-14-2012 Unclassified (12 sources) Unspecified Diagnosis 11-07-2024 Urinary tract infections (20 sources) Urinary tract infection, site not specified 02-08-2013 Episodic Varicose veins of lower extremity (20 sources) Varicose veins of lower extremity; Translations: [Asymptomatic varicose veins of unspecified lower extremity] 07-13-2023 Episodic Viral infection (20 sources) Disease caused by 2019-nCoV; Translations: [COVID-19] 07-13-2023 Episodic Past or Other Problems Problem Classification Problem Date Documented Da te Episodic/Chronic Unclassified (20 sources) MCR Well Adult - In general the patient feels well with minor complaints (would like her veins checked in her legs), has good energy level and is sleeping well. The patient has a balanced diet and takes supplemental vitamins. The patient exercises 3 - 4 times per week and sleeps 8 hours per night. The patient denies having trouble with bathing, dressing/grooming, toileting, preparing meals and ambulating. The patient denies having trouble with grocery shopping, driving, use of telephone, housework, laundry, preparing/taking medications and finances. The patient performs monthly self breast exam (not every month). The patient has a Healthcare Power of Eight Arm Operator and a Living Will. Note for MCR Well Adult: Had reclast yesterday.Eye exam is UTD.Hgba1c was 6.7%.Legs feel tired and heavy at times. Has compression stockings but doesn't wear them. 07-13-2023 Unclassified (20 sources) MCR Well Adult - In general the patient feels well with no complaints, has good energy level and is sleeping well. The patient has a balanced diet and takes supplemental vitamins. The patient exercises 3 - 4 times per week and sleeps 8 hours per night. The patient denies having trouble with bathing, dressing/grooming, toileting, preparing meals and ambulating. The patient denies having trouble with grocery shopping, driving, use of telephone, housework, laundry, preparing/taking medications and finances. The patient does not perform monthly breast self exam. Note for MCR Well Adult: Pt had some pain in her chest - would sometimes be left and sometimes on the right. Not associated with exertion and no other associated symptoms. Took aspirin daily x 1 month and it stopped so thought it was maybe related more to MSK or long covid. She did mention it to her endo at one point and they thought it was anxiety related. Infrequent palpitations; only lasts x seconds. Pt has not noticed any of these sx in the past month. 06-28-2022 Unclassified (20 sources) Pelvic exam - Has cystic nodules and large LN in groin. Has also been having some right sided abd swelling recently; intermittent. Saw surgeon earlier this week. Will be having abd/pelvis CT scan next Tuesday to further evaluate; this will be followed by a biopsy if needed.In the process of trying to determine if there was a source for the groin lymphadenopathy it came up that she has a sore area near the opening of her vagina.Doesn't notice it other than with intercourse - dry feeling area that will be uncomfortable following intercourse. No bleeding from it. Feels it has been like this since she stopped HRT (end of 2017 or early 2018).Last pap was done in 2019 by Danette; done when he was evaluating her for bleeding while on estrogen patch; next pap is due in 2021.Denies fever or night sweats. 07-17-2021 Unclassified (20 sources) Cold Symptoms - Symptoms include nasal congestion, runny nose, dry cough, fever, chills, general malaise (nausea) and headache, but do not include ear pain or sore throat. The onset was gradual 11 day(s) ago. The symptoms occur constantly. The patient describes this as moderate in severity and unchanged. The patient is not currently being treated for this problem. The patient has been exposed to an individual with similar symptoms (covid). Note for Upper respiratory infection: Loss of smell, can still taste.Does feel like symptoms have been improving but just wanted to be sure nothing else was indicated. 11-26-2020 Unclassified (11 sources) Well adult female - The patient feels well with minor complaints, has good energy level and is sleeping well. The first day of the last menstrual period was : (years ago). The patient is not using any method of contraception at this time. The patient has a balanced diet and takes supplemental vitamins. The patient does not exercise. The patient sleeps 8 hours per night. 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 12-06-2019 Unclassified (11 sources) [ADDITIONAL REASON] Transition into care - The patient is transitioning into care from another physician (stonemason helper 11/20/2019) and a summary of care was reviewed. 12-06-2019 Unclassified (20 sources) Cold Symptoms - Symptoms include nasal congestion, dry cough (sob), wheezing and headache, but do not include runny nose, ear pain, sore throat, productive cough, fever (had low grade a few days but not now.), chills, general malaise (but did) or facial pain. The onset was gradual 1 week(s) ago. The symptoms occur constantly. The patient describes this as moderate in severity and unchanged. Current treatment includes NSAIDs (not today). The patient has been exposed to an individual with similar symptoms. Patient denies history of seasonal allergies, recurrent sinusitis, recurrent strep pharyngitis, asthma, tonsillectomy or recurrent ear infections. Note for Upper respiratory infection: Had something similar in September - was given abx but never ended up needing to take it. 11-19-2018 Unclassified (20 sources) Cold Symptoms - Symptoms include nasal congestion, runny nose, ear pain, ear fullness, sore throat, scratchy throat, dry cough, productive cough and headache, but do not include fever. The onset was gradual 5 day(s) ago. The symptoms occur constantly. The patient describes this as moderate in severity and worsening. The patient is not currently being treated for this problem. Risk factors do not include child in daycare or smoking. The patient has not been exposed to an individual with a cough, an individual with an upper respiratory infection, an individual with similar symptoms or an individual with strep. 10-10-2018 Unclassified (20 sources) Diarrhea - The onset of the diarrhea has been gradual (Last Tuesday. She had a stressful weekend and was out of state. Her blood sugars were running high (around 200) so she thought her insulin pump wasn't working right - she changed the infusion and sugars have been running fine since. Called her stonemason helper to be sure no DKA given symptoms but they said it was ok.) and has been occurring in a persistent (intermittent nausea) pattern. The course has been constant. The symptoms have been associated with nausea and vomiting, while the symptoms have not been associated with fever (did have; tmax 101.5). Note for Diarrhea: She also has sores in her mouth; had dry mouth and then they appeared. Vomiting and fever have resolved.Continues with the nausea and diarrhea. 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 Has a colonoscopy in the past with Shawn Vail and it was normal.Does have heartburn and feels like food/water gets stuck in epigastric area.Diarrhea is more with fatty foods.No blood in stool.Per Aidee Yasmani is doing HRT with pellets and 200mg progesterone. 04-18-2018 Unclassified (20 sources) Rash - The onset of the rash has been sudden and has been occurring in a persistent pattern for 4 days. The course has been increasing. The rash is characterized as raised above the skin. The rash was first seen on the abdomen. There has been no progression. There has been associated itching, while there has been no associated pain. Note for Rash: Has been putting Tea tree oil on the lesion, after applying the oil the redness spread. 09-22-2016 Unclassified (20 sources) Well adult female - The patient feels well with minor complaints, has good energy level and is sleeping well. The patient takes supplemental vitamins. The patient does not exercise. The patient sleeps 8 hours per night. Note for Well adult female: -Has not completed mammogram yet due to timing of test and her recent vacation. reviewed by diane 05-11-2016 Unclassified (20 sources) Cold Symptoms - Symptoms include ear pain, sore throat, productive cough (small amt; clear; possible SOB), fever (low grade fever intermittently since last tuesday. The high temp was 100.9), chills, general malaise (and muscle aches) and headache, but do not include runny nose or facial pain. The onset was sudden 7 day(s) ago. The symptoms occur constantly. The patient describes this as moderate in severity and unchanged (the cough is worsening). Current treatment includes non-prescription cold medication (and essential oils) and NSAIDs (ibuprofen). Risk factors do not include smoking. The patient has not been exposed to an individual with similar symptoms. Patient denies history of seasonal allergies or asthma. Note for Upper respiratory infection: First started while camping last week. Has been having all over body aches/headache and mild cough that has been relieved some with taking ibuprofen. Was evaluated by a camp doctor who recommended Tylenol-SinusPatient has had severe pain in her lower back that would be relieved if in a certain position. Is aggravated by standing up from a sitting position. Patient wonders if the lower back pain is related to an activity that was done during camping trip. No UTI symptoms. Symptoms are positional and occ radiate down back of right leg; shooting pains. No numbness. Ibuprofen helped that. Pain worse when coughsSugars have been variable and she hasn't been eating like normal. Checks often and adjusts her pump. 05-06-2015 Unclassified (20 sources) Well adult female - The patient feels well with no complaints, has good energy level and is sleeping well. The patient has a balanced diet and takes supplemental vitamins. The patient exercises none (nothing regular but has a active lifestyle). The patient sleeps 8 hours per night. Note for Well adult female: Patient would like to discuss how to determine the presence of potential ketoacidosis. She reports two different episodes where she had intense pain in both legs, mostly in front; pain was hard to localize; described as a tingling/burning, almost felt like a build up of lactic acid. Lasted a few days. Did not respond to rest. Then resolved spontaneously. The next time it occurred, it was associated iwth nausea. Blood sugar was fine in that time. Has not recurred since that second episode (a month ago). Neither episode had any apparent trigger. Did have a few ion foot cleanses around time first episode occurred. 04-25-2015 Unclassified (20 sources) Well adult female - The patient feels well with no complaints, has good energy level and is sleeping well. The patient has a balanced diet and takes supplemental vitamins. The patient exercises none (nothing regular). Note for Well adult female: reviewed by diane 04-26-2014 Unclassified (20 sources) UTI - Symptoms include dysuria and urinary frequency, but do not include abdominal pain or back pain. There is no assiciated pain. Onset was sudden 3 day(s) ago. There is no known event that preceded symptom onset. The symptoms occur constantly. The patient describes this as moderate in severity and unchanged. Associated symptoms do not include fever, chills, nausea or vomiting. Risk factors do not include indwelling catheter. Note for UTI: Symptoms are worse in the mornings. + nocturia. History of similar symptoms in the past. Sugars have been a little high recently but it was normal this morning. Did have a big brunch at a restaurant prior to coming to the office today. 02-08-2013 Unclassified (20 sources) bowel concerns - Patient states she was on vacation a week ago and started with a cough, then her intestines seemed weird. She thought she was feeling better, but then Wed started to feel sick again. She had a low grade fever (intermittent) , abdominal cramping, diarrhea (q2 hours initially, now 4 times today so far; small amts) and nausea. No urinary sx. No blood in her stool and no vomiting. Her appetite has been hit or miss. Her cough is now productive and she has been sneezing with some headache. Just feels listless. None of the symptoms have been consistent except the diarrhea. No sick contacts; symptoms did start on vacation where she was exposed to places with pets and spent time in a shelter. 05-22-2012 Unclassified (20 sources) Well adult female - The patient feels well with no complaints and has good energy level. The first day of the last menstrual period was : (08/2009). The patient has a balanced diet and takes no supplemental vitamins & iron. Patient exercises 3 - 4 times per week. 03-15-2011 Unclassified (20 sources) Cold Symptoms - Symptoms include sneezing, nasal congestion, runny nose, purulent discharge, ear pain, sore throat, productive cough and wheezing. The onset was sudden 1 week(s) ago. The symptoms occur intermittently. The patient describes this as moderate in severity and worsening. Current treatment includes non-prescription cold medication (salt water gargles and whiskey). 02-03-2011 Unclassified (20 sources) Cold Symptoms - Current treatment includes rest and cough suppressants. The patient has been exposed to an individual with an upper respiratory infection. Symptoms include nasal congestion, runny nose, sore throat, productive cough, fever (low grade), headache and facial pain. The onset was gradual 7 day(s) ago. The patient describes this as moderate in severity and worsening. Risk factors do not include smoking. Note for Cold Symptoms: has also had right eye dryness, yet purulent drainage 07-27-2010 Unclassified (20 sources) Rash - The onset of the rash has been acute and has been occurring in a persistent pattern for 5 days. The course has been increasing. The rash is characterized as red and raised above the skin. The rash was first seen on the face (right eyelid area). It spread to the neck, the trunk, the upper extremity and the lower extremity. There has been associated itching, drainage and erythema, while there has been no associated pain or edema. There has been no associated chills, fatigue or fever. Note for Rash: Patient reports that she was working out in her garden before the rash started. 04-10-2024 Unclassified (12 sources) Transition into care - The patient is transitioning into care from another physician (stonemason helper 11/20/2019) and a summary of care was reviewed. 12-06-2019 Unclassified (12 sources) [ADDITIONAL REASON] Well adult female - The patient feels well with minor complaints, has good energy level and is sleeping well. The first day of the last menstrual period was : (years ago). The patient is not using any method of contraception at this time. The patient has a balanced diet and takes supplemental vitamins. The patient does not exercise. The patient sleeps 8 hours per night. 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 12-06-2019 Unclassified (1 source) MCR Well Adult 08-24-2024 Unclassified (1 source) MCR Well Adult - In general the patient feels well with no complaints, has good energy level and is sleeping well. The patient has a balanced diet and takes supplemental vitamins. The patient does not exercise and sleeps 7 hours per night. The patient denies having trouble with bathing, dressing/grooming, toileting, preparing meals and ambulating. The patient denies having trouble with grocery shopping, driving, use of telephone, housework, laundry, preparing/taking medications and finances. The patient does not perform monthly breast self exam. The patient has a Healthcare Power of Eight Arm Operator and a Living Will. 08-24-2024 Unclassified (12 sources) MCR Well Adult - In general the patient feels well with no complaints, has good energy level and is sleeping well. The patient has a balanced diet and takes supplemental vitamins. The patient does not exercise and sleeps 7 hours per night. The patient denies having trouble with bathing, dressing/grooming, toileting, preparing meals and ambulating. The patient denies having trouble with grocery shopping, driving, use of telephone, housework, laundry, preparing/taking medications and finances. The patient does not perform monthly breast self exam. The patient has a Healthcare Power of Eight Arm Operator and a Living Will. Note for [facility] Well Adult: Having gum grafting done soon.Does occasionally take aspirin at night for chest discomfort. Doesn't have it with activity. Some SOB but just with heavy exertion. 08-24-2024 Unclassified (4 sources) side pain - Patient presents today for evaluation of pain in her right ribs and side. She reports falling flat onto her back while carrying her granddaughter on Tuesday. She did not have pain after her fall, but started with pain later that night when she reached up to a shelf and felt something in her midback/ribs pop. She has been taking Tylenol and Ibuprofen as needed since then and reports good control of her pain with this medication. She is concerned due to her history of osteoporosis. 01-01-2025 Results Test Name Value Interpretation Reference Range Facility Microalbumin/creat ratio urO rdered By: Tricia Dey on 06-03-2025 Urine microalbumin/creatini ne ratio measurement UNABLE TO CALCULATE mg/g CRE <30 [facility] Random urine creatinine srinivasa urement (mass/volume)Ordered By: Tricia Dey on 06-03-2025 Creatinine Unsp time (U) [Mass/Vol] 157.00 mg/dL 28.00-217.00 [facility] Urine albumin measurement wi th detection limit of 20 mg/L or less (mass/volume)Ordered By: Tricia Dey on 06-03-2025 Albumin DL <= 20 mg/L (U) [Mass/Vol] < 12.0 mg/L <20 mg/L [facility] Endocrinology Visit Reporton 02-25-2025 Endocrinology Visit Report [facility] [address] [place] [address] OFFICE VISIT Date of Service: 02/25/25 MR#: [id number] Acct: [id number] Name: ZEHRA GAMEZ Rep #: [id number] : 1955 Provider: Saloni Adler Age/Sex: 70/F [place] [facility] [place]: Signed Intake Vital Signs 11/20/24 10:36 02/25/25 09:59 Height 5 ft 3.5 in 5 ft 3.5 in Weight: 131 lb 2 oz 131 lb 8 oz BMI 22.8 22.9 BP 104/71 104/69 Blood Pressure Location Lt brachial Lt brachial Position Sitting Sitting Respiration 16 Pulse 68 Pulse Source Monitor Temp 98.4 F Temp Source Temporal Intake Visit Reasons: 3 M FU Chief Complaint: 3 M fu Is patient in pain?: No Allergies iodine Allergy (Severe, Verified 02/25/25 10:03) hives Penicillins Allergy (Severe, Verified 02/25/25 10:03) hives Medications ???Medication ???Instructions ???Recorded ???Confirmed ???Type multivitamin (Daily Multi-Vitamin 1 tab PO DAILY 05/13/22 02/25/25 History tablet) Contour Next Test Strips (blood #300 ea 08/22/23 11/20/24 Rx sugar diagnostic) cholecalciferol (vitamin D3) 125 125 mcg PO .3 times per week 02/0802/25/25 History mcg (5,000 unit) capsule zoledronic acid 5 mg/100 mL in 1 ea .Route ONCE #100 mL 05/14/24 02/25/25 Rx mannitol 5 %-water intravenous piggybck Humalog U-100 Insulin 100 unit/mL 85 unit (0.85 mL) subcut DAILY #8 0 08/14/24 02/25/25 Rx subcutaneous solution (insulin mL lispro) ezetimibe 10 mg tablet 10 mg PO DAILY #90 tabs 08/14/24 0 02/25/25 Rx levothyroxine 100 mcg tablet 100 mcg PO .COMPLEX #90 tabs 11/2002/25/25 Rx Have you fallen in the past year?: Yes [facility] Medical History Cataract Nonproliferative diabetic retinopathy of both eyes Femoral hernia of right side Wears glasses Thyroid disease Insulin dependent diabetes mellitus Low iron Restless legs Back pain Difficulty swallowing Dietary restriction Lymphocytic colitis Heartburn Non-smoker Shortness of breath on exertion Leg cramps Cardiology follow-up encounter History of stress test Lymphadenopathy 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 Osteopenia determined by x-ray Polyneuropathy due to type 1 diabetes mellitus Mixed hyperlipidemia Lymphocytic colitis Diabetes type 1, controlled Surgical History History of colonoscopy ( 05/2018) History of appendectomy History of 3 sections Family History Father Heart disease CVA (cerebral vascular accident) Cancer skin Mother CVA (cerebral vascular accident) Heart disease Social History Smoking Status: Never smoker alcohol intake: current alcohol intake frequency: a few times a week Alcohol type: wine HPI HPI Chief Complaint: 3 M fu Details: ZEHRA GAMEZ, is a 70 F who presents to the office today for follow up. A1C is 6.3% GMI is 6.3% She is using Medtronic 780G insulin pump with Guardian CGM and automode. Upload shows controlled blood sugars. She has hypothyroidism and is taking levothyroxine. She is on ezetimibe for her lipids. She has osteopenia and is taking Reclast, she will be due for infusion after May. She will have labs done prior to next appointment. ROS Const Constitutional: No fatigue, weight change or change in appetite Eyes Eyes: No change in vision ENT ENT: No dizziness/vertigo or difficulty swallowing Cardio Cardiology: No chest pain at rest, chest pain with exertion, shortness of breath or palpitations Musc Musculoskeletal: No abnormal gait, joint pain, numbness or tingling Neuro Neurology: No abnormal gait, memory loss, numbness or tingling Psych Psychiatric: No change in appetite, No memory loss and No Thoughts of harming yourself/Others Resp Respiratory: No cough, chest congestion or shortness of breath Gastro GI: No abdominal pain, constipation, diarrhea or difficulty swallowing Genitourinary-Female: No burning urination Skin Skin: No itchy eyes or wounds Endo Endocrine: No fatigue or weight change Aller/Imm Allergy/Immunologic: No itchy eyes Exam Const General: cooperative, healthy appearing, comfortable, no acute distress, well developed and not cushingoid Nutritional Appearance: well nourished Orientation: alert, awake and oriented x3 HENMT Head: normal to inspection Ears: hearing grossly normal bilaterally Nose: external nose normal Mouth: oral mucosae normal Eyes General: appearance normal, both eyes and all related structures Alignment and Position: alignment normal Periorbital: periorbital findings (more content not included)... Normal [facility] - Hematology and Cell countsOrdered By: Tricia Dey on 02-25-2025 HbA1c (Bld) [Mass fraction] 6.3 % 4.2-6.3 [facility] Endocrinology Visit Reporton 11-20-2024 Endocrinology Visit Report [facility] [address] [place] [address] [address] [place] [address] OFFICE VISIT Date of Service: 11/20/24 MR#: [id number] Acct: [id number] Name: ZEHRA GAMEZ OLIVER Rep #: [id number] : 1955 Provider: Saloni Adler Age/Sex: 69/F [place] [facility]: Signed Intake Vital Signs 08/14/24 08:28 11/20/24 10:36 Height 5 ft 3.5 in 5 ft 3.5 in Weight: 131 lb 131 lb 2 oz BMI 22.8 22.8 BP 94/65 104/71 Blood Pressure Location Rt brachial Lt brachial Position Sitting Sitting Respiration 16 Pulse 60 68 Pulse Source Monitor Monitor Temp 98.4 F Temp Source Temporal Pulse Oximetry (%) 97 Oxygen Delivery Method room air Intake Visit Reasons: 3 M FU Chief Complaint: 3 M fu Manager Production Required: No Accompanied by: Self Is patient in pain?: No Allergies iodine Allergy (Severe, Verified 11/20/24 10:30) hives Penicillins Allergy (Severe, Verified 11/20/24 10:30) hives Medications ???Medication ???Instructions ???Recorded ???Confirmed ???Type multivitamin (Daily Multi-Vitamin 1 tab PO DAILY 05/13/22 11/20/24 History tablet) Contour Next Test Strips (blood #300 ea 08/22/23 11/20/24 Rx sugar diagnostic) cholecalciferol (vitamin D3) 125 125 mcg PO .3 times per week 02/09/24 11/20/24 History mcg (5,000 unit) capsule zoledronic acid 5 mg/100 mL in 1 ea .Route ONCE #100 mL 05/14/24 11/20/24 Rx mannitol 5 %-water intravenous piggybck Humalog U-100 Insulin 100 unit/mL 85 unit (0.85 mL) subcut DAILY #80 08/14/24 11/20/24 Rx subcutaneous solution (insulin mL lispro) ezetimibe 10 mg tablet 10 mg PO DAILY #90 tabs 08/14/24 11/20/24 Rx levothyroxine 100 mcg tablet 100 mcg PO .COMPLEX #90 tabs 11/20/24 11/20/24 Rx Have you fallen in the past year?: No PFSH Medical History (Updated 11/20/24 @ 10:[address] 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 Osteopenia determined by x-ray Polyneuropathy due to type 1 diabetes mellitus Mixed hyperlipidemia Lymphocytic colitis Diabetes type 1, controlled Surgical History History of colonoscopy ( 05/2018) History of appendectomy History of 3 sections Family History Father Heart disease CVA (cerebral vascular accident) Cancer skin Mother CVA (cerebral vascular accident) Heart disease Social History Smoking Status: Never smoker alcohol intake: current alcohol intake frequency: a few times a week Alcohol type: wine HPI HPI Chief Complaint: 3 M fu Details: ZEHRA GAMEZ, is a 69 F who presents to the office today for follow up. A1C is 6.6% She is using Medtronic insulin pump with Guardian CGM and auto mode. Upload shows good control, but with some sugars in the 60s. She tolerates this well. She was diagnosed with polyneuropathy prior to her seeing me, but she has no symptoms and her exam is normal. I will remove this diagnosis from her chart. She has hypothyroidism and is taking levothyroxine. TSH 0.42 in April. She is taking Zetia for her lipids. She is on Zoledronic acid for her osteopenia. ROS Const Constitutional: No body ache, chills, excessive sweating, fatigue, fever(s), frequent falls, headache(s), snoring, weakness or change in appetite Eyes Eyes: No blurry vision, change in vision, eye pain or Light sensitivity ENT ENT: No abnormal hearing, ear or mastoid pain, tinnitus, nasal congestion, headache(s), neck pain or sore throat Cardio Cardiology: No chest pain at rest, chest pain with exertion, excessive sweating, dyspnea on exertion, lightheadedness, orthopnea or palpitations Musc Musculoskeletal: No abnormal gait, joint pain, back pain, limited range of motion, muscle weakness, neck pain or numbness Neuro Neurology: No abnormal gait, abnormal hearing, weakness, frequent falls, headache(s), memory loss or numbness Psych Psychiatric: No anxiety, No change in appetite, No depression, No memory loss and No Thoughts of harming yourself/Others Baldemar/Lymp Hematologic/Lymphatic: No easy bleeding or easy bruising Resp Respiratory: No cough, shortness of breath, snoring or wheezing Gastro GI: No abdominal pain, change in bowel habits, constipation, cramping, diarrhe (more content not included)... Normal [facility] CV STRESS ECHO TREADMILLon 1 CV STRESS ECHO TREADMILL [address] [place], [place] [address] Patient: ZEHRA GAMEZ Phone#: : 1955 Age: 69 Gender: F Pt. Type: Out Account: [id number] Location: Ordering: LEIGHA LOMELI Exam Date: 09/10/2024/9:17 Family Phys: Charge Code: [id number] Physician: Berrien Order #: [id number] Dose#: PROCEDURE: STRESS TREADMILL ECHOCARDIOGRAM HISTORY: Patient 69-year-old female with history of diabetes and hypothyroidism COMPARISON: None. INDICATIONS: CHEST PAIN TECHNIQUE: Two-phase echocardiogram examining and comparing left ventricular wall segments before stress and after stress accomplished by using treadmill exercise. 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 Stress Discontinued Due to: shortness of breath Resting Heart Rate: 61 bpm. Target Heart Rate: 130 bpm. Resting Blood Pressure: 110/69 mmHg Peak Heart Rate: 171 which is 112 % of maximum predicted heart rate. Peak Blood Pressure: 189/102 occurring at 02:59 into stage 2 Workload: 8.10 METs. Definity injection given by slow I.V. push at rest and again at peak stress per protocol for improved endocardial border resolution SYMPTOMS WITH STRESS: Patient did not complain of any chest pain with stress. Stress test was ended due to shortness of breath RESTING EKG: Resting EKG showed sinus rhythm at 61 BPM. Normal EKG STRESS EKG: EKG with stress showed sinus tachycardia at 173 BPM. There is less than [address] depression in leads V4, V5, V6 and leads II,III and AVF which does not fulfill criteria for ischemia. WALL MOTION: RESTING STRESS 1 - Basal anterior: Normal. Normal. 2 - Basal anteroseptal: Normal. Normal. 3 - Basal inferoseptal: Normal. Normal. 4 - Basal inferior: Normal. Normal. Continued Report - Page 2 of 2 Patient: ZEHRA GAMEZ Phone#: : 1955 Age: 69 Gender: F Pt. Type: Out Account: [id number] Location: Ordering: LEIGHA LOMELI Exam Date: 09/10/2024/9:17 Family Phys: Charge Code: [id number] Physician: Berrien Order #: [id number] Dose#: 5 - Basal inferolateral: Normal. Normal. 6 - Basal anterolateral: Normal. Normal. 7 - Mid anterior: Normal. Normal. 8 - Mid anteroseptal: Normal. Normal. 9 - Mid inferoseptal: Normal. Normal. 10-Mid inferior: Normal. Normal. 11-Mid inferolateral: Normal. Normal. 12-Mid anterolateral: Normal. Normal. 13-Apical anterior: Normal. Normal. 14-Apical septal: Normal. Normal. 15-Apical inferior: Normal. Normal. 16-Apical lateral: Normal. Normal. Ejection fraction 55-60% 65-70% CONCLUSION: 1. Patient did not complain of any chest pain with stress. Stress test was ended due to shortness of breath 2. Patient had appropriate heart rate and blood pressure response with stress. 3. Patient is able to achieve good workload capacity. 4. Stress EKG is negative for inducible ischemia 5. Stress echocardiogram is negative for inducible ischemia. Left ventricle augmented appropriately with stress. Stress echocardiogram is negative for inducible ischemia. 6. Left ventricle is normal in size and thickness. Systolic ejection fraction is 55-60%. There are no regional wall motion abnormality seen. 7. Mitral valve appears normal structure. There is trivial regurgitation and no stenosis seen. 8. Tricuspid valve is normal structure. There is mild regurgitation no stenosis seen. 9. Aortic valve is trileaflet. There is no regurgitation or stenosis seen. 10. Pulmonic valve is inadequately visualized. Doppler shows no significant regurgitation or stenosis 11. Right ventricle is normal in size and systolic function. Dictated by: ANNMARIE AGUILAR MD on 09/10/2024 at 11:10 Approved by: ANNMARIE AGUILAR MD on 09/10/2024 at 11:53 Normal [facility] Endocrinology Visit Reporton 08-14-2024 Endocrinology Visit Report [facility] [address] [place] [address]. [address] [place] [address] OFFICE VISIT Date of Service: 08/14/24 MR#: [id number] Acct: [id number] Name: ZEHRA GAMEZ Rep #: [id number] : 1955 Provider: Saloni Adler Age/Sex: 69/F [place] [facility] [place] [facility] [place]: Signed Intake Vital Signs 05/14/24 10:33 07/12/24 14:06 08/14/24 08:28 Height 5 ft 3.5 in 5 ft 3.5 in 5 ft 3.5 in Weight: 131 lb 131 lb BMI 22.8 22.8 BP 103/71 94/65 Blood Pressure Location Lt brachial Rt brachial Position Sitting Sitting Pulse 65 60 Pulse Source Monitor Monitor Pulse Oximetry (%) 97 97 Oxygen Delivery Method room air room air Intake Visit Reasons: 3 M FU Chief Complaint: Diabetes Is patient in pain?: No Allergies iodine Allergy (Severe, Verified 07/12/24 14:06) hives Penicillins Allergy (Severe, Verified 07/12/24 14:06) hives Medications ???Medication ???Instructions ???Recorded ???Confirmed ???Type multivitamin (Daily Multi-Vitamin 1 tab PO DAILY 05/13/22 08/14/24 History tablet) Contour Next Test Strips (blood #300 ea 08/22/23 08/14/24 Rx sugar diagnostic) cholecalciferol (vitamin D3) 125 125 mcg PO .3 times per week 02/09/24 08/14/24 History mcg (5,000 unit) capsule levothyroxine 100 mcg tablet 100 mcg PO .COMPLEX #90 tabs 02/09/24 08/14/24 Rx zoledronic acid 5 mg/100 mL in 1 ea .Route ONCE #100 mL 05/14/24 08/14/24 Rx mannitol 5 %-water intravenous piggybck Humalog U-100 Insulin 100 unit/mL 85 unit (0.85 mL) subcut DAILY #80 08/14/24 08/14/24 Rx subcutaneous solution (insulin mL lispro) ezetimibe 10 mg tablet 10 mg PO DAILY #90 tabs 08/14/24 08/14/24 Rx Have you fallen in the past year?: No PFSH Medical History Cataract Nonproliferative diabetic retinopathy of both eyes Femoral hernia of right side Wears glasses Thyroid disease Insulin dependent diabetes mellitus Low iron Restless legs Back pain Difficulty swallowing Dietary restriction Lymphocytic colitis Heartburn Non-smoker Shortness of breath on exertion Leg cramps Cardiology follow-up encounter History of stress test Lymphadenopathy 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 Osteopenia determined by x-ray Polyneuropathy due to type 1 diabetes mellitus Mixed hyperlipidemia Lymphocytic colitis Diabetes type 1, controlled Surgical History History of colonoscopy ( 05/2018) History of appendectomy History of 3 sections Family History Father Heart disease CVA (cerebral vascular accident) Cancer skin Mother CVA (cerebral vascular accident) Heart disease Social History Smoking Status: Never smoker alcohol intake: current alcohol intake frequency: a few times a week Alcohol type: wine HPI HPI Chief Complaint: Diabetes Details: ZEHRA GAMEZ, is a 69 F who presents to the office today for follow up. A1C is 6.8% She is using Medtronic 780G insulin pump with Sigmatixan 4 CGM and auto mode. Upload shows controlled blood sugars. She has hypothyroidism and is taking levothyroxine. She is taking Zetia for her lipids. She has bone loss and is taking Reclast. She will be due for infusion next May. ROS Const Constitutional: No fatigue or weight change ENT ENT: No dizziness/vertigo Cardio Cardiology: No chest pain at rest, chest pain with exertion, shortness of breath or palpitations Skin Skin: No wounds Endo Endocrine: No fatigue or weight change Exam Const General: cooperative, healthy appearing, comfortable, no acute distress, well developed and not cushingoid Nutritional Appearance: well nourished Orientation: alert, awake and oriented x3 HENMT Head: normal to inspection Ears: hearing grossly normal bilaterally Nose: external nose normal Mouth: oral mucosae normal Eyes General: appearance normal, both eyes and all related structures Alignment and Position: alignment normal Periorbital: periorbital findings normal Eyelids: eyelids normal Conjunctivae: conjunctivae normal Neck Neck: normal visual inspection Neck mass: No Thyroid: thyroid normal Chest Chest palpation inspection: normal inspection of the chest Resp Effort Inspection: normal respiratory effort, able to speak in complete sentences, symmetric chest movement, no audible wheezes and no cough Cardio Rate: regular rate Rhythm: regular rhythm GI Inspection: normal to inspection Skin General: no rashes or lesions noted Neuro General: patient alert, patient awake and patient oriented x3 Cranial Nerves: CN's II-XI intact bilaterally (more content not included)... Normal [facility] - Hematology and Cell countson 08-14-2024 HbA1c (Bld) [Mass fraction] 6.8 % Normal 4.6 - 7.1 % [email or web address] Endocrinology Visit Reporton 05-14-2024 Endocrinology Visit Report [facility]. [address] [place] [address] OFFICE VISIT Date of Service: 05/14/24 MR#: [id number] Acct: [id number] Name: ZEHRA GAMEZ OLIVER Rep #: [id number] : 1955 Provider: Saloni Adler Age/Sex: 69/F [place] [facility] [facility] [place]: Signed Intake Vital Signs 02/09/24 11:03 05/14/24 10:33 Height 5 ft 3.5 in 5 ft 3.5 in Weight: 130 lb 131 lb BMI 22.6 22.8 BP 99/64 103/71 Blood Pressure Location Lt brachial Lt brachial Position Sitting Sitting Pulse 65 65 Pulse Source Monitor Monitor Temp 98.2 F Temp Source Temporal Pulse Oximetry (%) 97 Oxygen Delivery Method room air Comment Raynnaud's Disease Preventing SPO2 Reading Intake Visit Reasons: 3 M FU Chief Complaint: Diabetes Manager Production Required: No Accompanied by: Self Is patient in pain?: No Allergies iodine Allergy (Severe, Verified 05/14/24 10:35) hives Penicillins Allergy (Severe, Verified 05/14/24 10:35) hives Medications ???Medication ???Instructions ???Recorded ???Confirmed ???Type multivitamin (Daily Multi-Vitamin 1 tab PO DAILY 05/13/22 05/14/24 History tablet) Contour Next Test Strips (blood #300 ea 08/22/23 05/14/24 Rx sugar diagnostic) Humalog U-100 Insulin 100 unit/mL 85 unit (0.85 mL) subcut DAILY #80 11/10/23 05/14/24 Rx subcutaneous solution (insulin mL lispro) cholecalciferol (vitamin D3) 125 125 mcg PO .3 times per week 02/09/24 05/14/24 History mcg (5,000 unit) capsule ezetimibe 10 mg tablet 10 mg PO DAILY #90 tabs 02/09/24 05/14/24 Rx levothyroxine 100 mcg tablet 100 mcg PO .COMPLEX #90 tabs 02/09/24 05/14/24 Rx zoledronic acid 5 mg/100 mL in 1 ea .Route ONCE #100 mL 05/14/24 05/14/24 Rx mannitol 5 %-water intravenous piggybck Have you fallen in the past year?: No PFSH Medical History Back pain Cardiology follow-up encounter Cataract Diabetes type 1, controlled Dietary restriction Difficulty swallowing Femoral hernia of right side Heartburn History of stress test 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 Insulin dependent diabetes mellitus Leg cramps Low iron Lymphadenopathy Lymphocytic colitis Lymphocytic colitis Mixed hyperlipidemia Non-smoker Nonproliferative diabetic retinopathy of both eyes Osteopenia determined by x-ray Polyneuropathy due to type 1 diabetes mellitus Restless legs Shortness of breath on exertion Thyroid disease Wears glasses Surgical History History of 3 sections History of appendectomy History of colonoscopy ( 05/2018) Family History Father Heart disease CVA (cerebral vascular accident) Cancer skin Mother CVA (cerebral vascular accident) Heart disease Social History Smoking Status: Never smoker alcohol intake: current alcohol intake frequency: a few times a week Alcohol type: wine HPI HPI Chief Complaint: Diabetes Details: ZEHRA GAMEZ, is a 69 F who presents to the office today for follow up. A1C is 6.3% She is using Medtronic insulin pump with Guardian sensor and auto mode. Upload shows well controlled blood sugars. She has hypothyroidism and is taking levothyroxine. She has hyperlipidemia and is taking Zetia. She has osteopenia and is taking Reclast. Exam Const General: cooperative, healthy appearing, comfortable, no acute distress, well developed and not cushingoid Nutritional Appearance: well nourished Orientation: alert, awake and oriented x3 HENTN Head: normal to inspection Ears: hearing grossly normal bilaterally Nose: external nose normal Mouth: oral mucosae normal Eyes General: appearance normal, both eyes and all related structures Alignment and Position: alignment normal Periorbital: periorbital findings normal Eyelids: eyelids normal Conjunctivae: conjunctivae normal Neck Neck: normal visual inspection Neck mass: No Thyroid: thyroid normal Lymphatic: no lymphadenopathy noted Chest Chest palpation inspection: normal inspection of the chest Resp Effort Inspection: normal respiratory effort, able to speak in complete sentences, symmetric chest movement, no audible wheezes and no cough Auscultation: Bilateral: Clear to Auscultation Cardio Rate: regular rate Rhythm: regular rhythm GI Inspection: normal to inspection Skin General: no rashes or lesions noted Neuro General: patient alert, patient awake and patient oriented x3 Cranial Nerves: CN's II-XI intact bilaterally Cognition: normal cognition Speech: speech normal Gait: normal gait Motor: muscle tone normal throughout Extrem (more content not included)... Normal [facility] Comprehensive Metabolic Prof ilon 05-08-2024 Albumin [Mass/Vol] 3.5 g/dL Normal 3.2-5.0 [facility] Comment on above: Performed By: #### L 506.1000, L501.9520, L506.0400, L500.4100, L500.4050 #### [facility] [address] [place], [address] Albumin/Globulin [Mass ratio] 0.9 {ratio} Normal 0.9-2.4 [facility] Comment on above: Performed By: #### L 506.1000, L501.9520, L506.0400, L500.4100, L500.4050 #### [facility] [address] [place], [address] ALK P 67 U/L Normal 45-117 [facility] Comment on above: Performed By: #### L 506.1000, L501.9520, L506.0400, L500.4100, L500.4050 #### [facility] [address] [place], [address] ALT [Catalytic activity/Vol] 30 U/L Normal 13-56 [facility] Comment on above: Performed By: #### L 506.1000, L501.9520, L506.0400, L500.4100, L500.4050 #### [facility] [address] [place], [address] AST [Catalytic activity/Vol] 29 U/L Normal 15-37 [facility] Comment on above: Performed By: #### L 506.1000, L501.9520, L506.0400, L500.4100, L500.4050 #### [facility] [address] [place], [address] Bilirubin [Mass/Vol] 1.00 mg/dL Normal 0.20-1.00 [facility] Comment on above: Result Comment: For patients on eltrombopag therapy, use of Dimension [place] TBIL is not recommended. Performed By: #### L 506.1000, L501.9520, L506.0400, L500.4100, L500.4050 #### [facility] [address] [place], [address] BUN/CRE 27.1 RATIO High 10-20 [facility] Comment on above: Performed By: #### L 506.1000, L501.9520, L506.0400, L500.4100, L500.4050 #### [facility] [address] [place], [address] CA,Total 8.9 mg/dL Normal 8.5-10.1 [facility] Comment on above: Performed By: #### L 506.1000, L501.9520, L506.0400, L500.4100, L500.4050 #### [facility] [address] [place], [address] Chloride [Moles/Vol] 107 mmol/L Normal 98-107 [facility] Comment on above: Performed By: #### L 506.1000, L501.9520, L506.0400, L500.4100, L500.4050 #### [facility] [address] [place], [address] CO2 [Moles/Vol] 30.0 mmol/L Normal 21.0-32.0 [facility] Comment on above: Performed By: #### L 506.1000, L501.9520, L506.0400, L500.4100, L500.4050 #### [facility] [address] [place], [address] Creatinine [Mass/Vol] 0.66 mg/dL Normal 0.55-1.02 [facility] Comment on above: Result Comment: The validity of the calculated GFR GFRAA in patients over 70 years has not been determined. Clinical correlation is essential. Performed By: #### L 506.1000, L501.9520, L506.0400, L500.4100, L500.4050 #### [facility] [address] [place], [address] EST GFR - AA 114 mL/min Normal >60 [facility] Comment on above: Result Comment: Afri can [place] GFR Calc Performed By: #### L 506.1000, L501.9520, L506.0400, L500.4100, L500.4050 #### [facility] [address] [place], [address] GAP 2 Low 5-15 [facility] Comment on above: Performed By: #### L 506.1000, L501.9520, L506.0400, L500.4100, L500.4050 #### [facility] [address] [place], [address] GFR/1.73 sq M.predicted among non-blacks MDRD (S/P/Bld) [Vol rate/Area] 94 mL/min/{1.73_m2} Normal >60 [facility] Comment on above: Result Comment: Non- GFR Calc Performed By: #### L 506.1000, L501.9520, L506.0400, L500.4100, L500.4050 #### [facility] [address] [place], [address] Globulin (S) [Mass/Vol] 4.1 g/dL Normal 2.2-4.2 [facility] Comment on above: Performed By: #### L 506.1000, L501.9520, L506.0400, L500.4100, L500.4050 #### [facility] [address] [place], [address] Glucose [Mass/Vol] 87 mg/dL Normal 74-106 [facility] Comment on above: Performed By: #### L 506.1000, L501.9520, L506.0400, L500.4100, L500.4050 #### [facility] [address] [place], [address] Potassium [Moles/Vol] 3.6 mmol/L Normal 3.5-5.1 [facility] Comment on above: Performed By: #### L 506.1000, L501.9520, L506.0400, L500.4100, L500.4050 #### [facility] [address] [place], [address] Sodium [Moles/Vol] 139 mmol/L Normal 136-145 [facility] Comment on above: Performed By: #### L 506.1000, L501.9520, L506.0400, L500.4100, L500.4050 #### [facility] [address] [place], [address] T PROT 7.6 g/dL Normal 6.4-8.2 [facility] Comment on above: Performed By: #### L 506.1000, L501.9520, L506.0400, L500.4100, L500.4050 #### [facility] [address] [place], [address] Urea nitrogen [Mass/Vol] 18 mg/dL Normal 7-18 [facility] Comment on above: Performed By: #### L 506.1000, L501.9520, L506.0400, L500.4100, L500.4050 #### [facility] [address] [place], [address] Lipid Profileon 05-08-2024 Cholesterol [Mass/Vol] 169 mg/dL Normal 200 [facility] Comment on above: Result Comment: <200 mg/dL Desirable 200-240 mg/dL Borderline >240 mg/dL High Risk Performed By: #### L 506.1000, L501.9520, L506.0400, L500.4100, L500.4050 #### [facility] [address] [place], [address] Cholesterol in HDL [Mass/Vol] 59 mg/dL Normal [facility] Comment on above: Result Comment: The drugs N-Acetylcysteine and Metamizole may falsely depress this assay. Reference Range HDL <40 mg/dL Low HDL Cholesterol HDL >or= 60 mg/dL High HDL Cholesterol Performed By: #### L 506.1000, L501.9520, L506.0400, L500.4100, L500.4050 #### [facility] [address] [place], [address] Cholesterol in LDL [Mass/Vol] 99 mg/dL Normal 0-130 [facility] Comment on above: Performed By: #### L 506.1000, L501.9520, L506.0400, L500.4100, L500.4050 #### [facility] [address] [place], [address] Cholesterol in VLDL [Mass/Vol] 11 mg/dL Normal 5-40 [facility] Comment on above: Performed By: #### L 506.1000, L501.9520, L506.0400, L500.4100, L500.4050 #### [facility] [address] [place], [address] Triglyceride [Mass/Vol] 53 mg/dL Normal [facility] Comment on above: Result Comment: The drugs N-Acetylcysteine and Metamizole may falsely depress this assay. Serum Triglycerides Reference Interval Normal <150 mg/dL Borderline high 150 - 199 mg/dL High 200 - 499 mg/dL Very High > or = 500 mg/dL Performed By: #### L 506.1000, L501.9520, L506.0400, L500.4100, L500.4050 #### [facility] [address] [place], [address] Microalb:Creat Ratio,Random URon 05-08-2024 Creatinine [Mass/Vol] 42.30 mg/dL Normal NO RAN GE EST. [facility] Comment on above: Performed By: #### L 502.0250 #### [facility] [address] [place], [address] MALB:CRE 45.4 mg/g CRE High <30 mg/g CRE [facility] Comment on above: Performed By: #### L 502.0250 #### [facility] [address] [place], [address] MICROALBUMIN,UR 19.2 mg/L Normal NO RANGE EST. [facility] Comment on above: Performed By: #### L 502.0250 #### [facility] [address] [place], [address] T4 Free Directon 05-08-2024 T4 FREE DIRECT 1.22 ng/dL Normal 0.76-1.46 [facility] Comment on above: Performed By: #### L 506.1000, L501.9520, L506.0400, L500.4100, L500.4050 #### [facility] [address] [place], [address] Thyroid Stim Hormone (TSH)on 05-08-2024 TSH 0.42 uIU/mL Normal 0.358-3.74 [facility] Comment on above: Performed By: #### L 506.1000, L501.9520, L506.0400, L500.4100, L500.4050 #### [facility] [address] [place], [address] Vitamin D,25 Hydroxyon 05-08 Vitamin D 25-OH 40.5 ng/mL Normal [facility] Comment on above: Result Comment: Mohini min D 25(OH) Status Range Deficiency <20 ng/mL (50nmol/L) Insufficiency 20 - 30 ng/mL (50 - 75 nmol/L) Sufficiency 30 - 100 ng/mL (75 - 250 nmol/L) Toxicity >100 ng/mL (>250 nmol/L) Performed By: #### L 506.1000, L501.9520, L506.0400, L500.4100, L500.4050 #### [facility] [address] [place], [address] CMP with eGFRon 02-01-2024 AGE 68 years Normal [facility] Comment on above: Performed By: #### 2 16656 #### [facility],[address] [facility] [address] Albumin [Mass/Vol] 3.4 g/dL Normal 3.4 - 5.0 [facility] Comment on above: Performed By: #### 2 42984 #### [facility],[address] [facility] [address] Albumin/Globulin [Mass ratio] 0.8 {ratio} Low 0.9 - 1.6 [facility] Comment on above: Performed By: #### 2 13542 #### [facility],[address] [place] [address] ALK PHOS 69 U/L Normal 46 - 116 [facility] Comment on above: Performed By: #### 2 11270 #### [facility],[address] [place] [address] ALT [Catalytic activity/Vol] 32 U/L Normal 16 - 63 [facility] Comment on above: Performed By: #### 2 14978 #### [facility],[address] [place] [address] Anion gap [Moles/Vol] 9 mmol/L Low 10 - 20 [facility] Comment on above: Performed By: #### 2 44785 #### [facility],[address] [place] [address] AST [Catalytic activity/Vol] 27 U/L Normal 13 - 39 [facility] Comment on above: Performed By: #### 2 59574 #### [facility],[address] [place] [address] B/C RATIO 18 ratio Normal 0 - 30 [facility] Comment on above: Performed By: #### 2 79061 #### [facility],[address] [place] [address] Bilirubin [Mass/Vol] 0.7 mg/dL Normal 0.2 - 1.0 [facility] Comment on above: Performed By: #### 2 84963 #### [facility],[address] [place] [address] Calcium [Mass/Vol] 8.8 mg/dL Normal 8.5 - 10.1 [facility] Comment on above: Performed By: #### 2 23668 #### [facility],[address] [place] [address] Chloride [Moles/Vol] 105 mmol/L Normal 98 - 107 [facility] Comment on above: Performed By: #### 2 41428 #### [facility],[address] [place] [address] CMP with eGFR Normal [facility] Comment on above: Result Comment: COMP REHENSIVE METABOLIC PANEL Performed By: #### 2 07201 #### [facility],[address] [place] [address] CO2 [Moles/Vol] 32.2 mmol/L High 21.0 - 32.0 [facility] Comment on above: Performed By: #### 2 48867 #### [facility],[address] [place] [address] Creatinine [Mass/Vol] 0.80 mg/dL Normal 0.55 - 1.02 [facility] Comment on above: Performed By: #### 2 42107 #### [facility],[address] [place], [place] [address] GFR/1.73 sq M.predicted among non-blacks MDRD (S/P/Bld) [Vol rate/Area] mL/min/{1.73_m2} Normal 60 - 999 [facility] Comment on above: Performed By: #### 2 15557 #### [facility],[address] [place] [address] Result Comment: ACCO RDING TO THE NATIONAL KIDNEY DISEASE EDUCATION PROGRAM(NKDE), A NORMAL eGFR IS A VALUE GREATER THAN OR EQUAL TO 60 ML/MIN/1.73 SQ METERS. CHRONIC KIDNEY DISEASE: <60mL/MIN/1.73 SQ METERS KIDNEY FAILURE: <15mL/MIN/1.73 SQ METERS THIS TEST SHOULD ONLY BE USED FOR PATIENTS 18 YEARS OF AGE AND OLDER. Globulin (S) [Mass/Vol] 4.2 g/dL High 1.5 - 3.8 [facility] Comment on above: Performed By: #### 2 23148 #### [facility],[address] [place] [address] Glucose [Mass/Vol] 106 mg/dL Normal 74 - 106 [facility] Comment on above: Performed By: #### 2 96990 #### [facility],[address] [place] [address] Potassium [Moles/Vol] 3.6 mmol/L Normal 3.5 - 5.1 [facility] Comment on above: Performed By: #### 2 62939 #### [facility],[address] [place] [address] Protein [Mass/Vol] 7.6 g/dL Normal 6.4 - 8.2 [facility] Comment on above: Performed By: #### 2 85567 #### [facility],[address] [place] [address] Sodium [Moles/Vol] 143 mmol/L Normal 136 - 145 [facility] Comment on above: Performed By: #### 2 91259 #### [facility],[address] [place] [address] Urea nitrogen [Mass/Vol] 14 mg/dL Normal 7 - 18 [facility] Comment on above: Performed By: #### 2 43974 #### [facility],[address] [place] [address] LIPID PROFILEon 02-01-2024 Cholesterol [Mass/Vol] 182 mg/dL Normal 0 - 240 [facility] Comment on above: Performed By: #### 2 58700 #### [facility],[address] [place] [address] Cholesterol in HDL [Mass/Vol] 60 mg/dL Normal 40 - 60 [facility] Comment on above: Performed By: #### 2 31866 #### [facility],[address] [place] [address] Cholesterol in LDL [Mass/Vol] 110 mg/dL Normal 0 - 129 [facility] Comment on above: Performed By: #### 2 87659 #### [facility],[address] [place] [address] Cholesterol.total/Cho lesterol in HDL [Mass ratio] 3.0 {ratio} Normal 0.0 - 5.0 [facility] Comment on above: Performed By: #### 2 93928 #### [facility],[address] [place] [address] Lipid 1996 panel Normal [facility] Comment on above: Result Comment: LIPI D PROFILE Performed By: #### 2 65650 #### [facility],[address] [place] [address] Triglyceride [Mass/Vol] 62 mg/dL Normal 0 - 150 [facility] Comment on above: Performed By: #### 2 62260 #### [facility],[address] [place], [place] [address] T4-FREE (FREE THYROXINE)on 0 02-01-2024 Free T4 [Mass/Vol] 1.14 ng/dL Normal 0.76 - 1.46 [facility] Comment on above: Result Comment: P otential of falsely elevated results when biotin concentrations are > 10 ng/mL. Performed By: #### 2 71708 #### [place] [id number] TSHon 02-01-2024 TSH Qn 1.43 m[IU]/L Normal 0.35 - 3.74 [facility] Comment on above: Performed By: #### 2 62860 #### [facility],[address] [place], [place] [address] URINE MICROALBUMIN W/CREATIN INE, RANDOMon 02-01-2024 CREATININE UR 36.87 mg/dl Normal [facility] Comment on above: Performed By: #### 2 78826 #### [facility],[address] [place], [place] [address] MICROALBUMIN UR <0.13 Normal 0.1 - 11.6 [facility] Comment on above: Performed By: #### 2 95490 #### [address],[place] [address] UACR 3 mg/g Normal [facility] Comment on above: Performed By: #### 2 62492 #### [facility],[address] [place] [address] VITAMIN D, 25 HYDROXYon 01-13 VitD 64.40 ng/mL Normal 30.00 - 100 [facility] Comment on above: Result Comment: 25-O HD3 indicates both endogenous production and supplementation. 25-OHD2 is an indicator of exogenous sources, such as diet or supplementation. Therapy is based on measurement of Total 25-OHD, with levels <20 ng/mL indicative of Vitamin D deficiency, while levels between 20 ng/mL and 30 ng/mL suggest insufficiency. Optimal levels are >=30ng/mL. Vitamin D, 25-OH D3 Not Established Vitamin D, 25-OH D2 Not Established Performed By: #### 2 32816 #### [facility],[address] [place] [address] Laboratory - Hematology and Cell countson 05-12-2023 HbA1c (Bld) [Mass fraction] 6.7 % 4.2-6.3 [facility] Basophil percentageOrdered B y: Dr. Dey on 02-08-2023 Bilirubin [Mass/Vol] 0.70 mg/dL 0.20-1.00 [facility] Comment on above: For patients on eltr ombopag therapy, use of Dimension [place] TBIL is not recommended. Chloride [Moles/Vol] 108 mmol/L 98-107 [facility] Cholesterol [Mass/Vol] 183 mg/dL <200 [facility] Comment on above: <200 mg/dL Desirable 200-240 mg/dL Borderline >240 mg/dL High Risk Glucose [Mass/Vol] 135 mg/dL 74-106 [facility] Comment on above: Fasting Glucose resu lt greater than or equal to 126 mg/dL suggests DIABETES MELLITUS per A.D.A. criteria. Potassium [Moles/Vol] 4.0 mmol/L 3.5-5.1 [facility] Protein [Mass/Vol] 8.0 g/dL 6.4-8.2 [facility] Sodium [Moles/Vol] 141 mmol/L 136-145 [facility] Triglyceride [Mass/Vol] 70 mg/dL <199 [facility] Comment on above: The drugs N-Acetylcy steine and Metamizole may falsely depress this assay.Serum Triglycerides Reference Interval Normal <150 mg/dL Borderline high 150 - 199 mg/dL High 200 - 499 mg/dL Very High > or = 500 mg/dL Laboratory - Chemistry and C hemistry - challengeOrdered By: Dr. Dey on 02-08-2023 ALP [Catalytic activity/Vol] 86 U/L 45-117 [facility] ALT [Catalytic activity/Vol] 31 U/L 13-56 [facility] CO2 [Moles/Vol] 27.0 mmol/L 21.0-32.0 [facility] Free T4 [Mass/Vol] 1.25 ng/dL 0.76-1.46 [facility] Globulin (S) [Mass/Vol] 4.4 g/dL 2.2-4.2 [facility] Urea nitrogen/Creatinine [Mass ratio] 20.6 mg/mg 10-20 [facility] - Hematology and Cell countson 02-08-2023 HbA1c (Bld) [Mass fraction] 6.8 % [facility] No Panel InformationOrdered By: Melissa Garcia on 02-08-2023 C-Peptide < 0.1 ng/mL 1.1-4.4 [facility] Comment on above: C-Peptide reference interval is for fasting patients.Performed at: - [address] [id number] Director: Tanner Olguin PhD, Phone: [phone] No Panel InformationOrdered By: Dr. Dey on 02-08-2023 Estimated GFR (MDRD) Amer 96 mL/min >60 [facility] Comment on above: GFR Calc Estimated GFR (MDRD) Non-Af Amer 79 mL/min >60 [facility] Comment on above: Non- GFR Calc Thyroid Stimulating Hormone (TSH) 1.48 uIU/mL 0.358-3.74 [facility] Vitamin D 25-Hydroxy 74.0 ng/mL [facility] Comment on above: Vitamin D 25(OH) Sta tus Range Deficiency <20 ng/mL (50nmol/L) Insufficiency 20 - 30 ng/mL (50 - 75 nmol/L) Sufficiency 30 - 100 ng/mL (75 - 250 nmol/L) Toxicity >100 ng/mL (>250 nmol/L) Serum or plasma albumin srinivasa urement (mass/volume)Ordered By: Dr. Dey on 02-08-2023 Albumin [Mass/Vol] 3.6 g/dL 3.2-5.0 [facility] Serum or plasma albumin/glob ulin mass ratioOrdered By: Dr. Dey on 02-08-2023 Albumin/Globulin [Mass ratio] 0.8 {ratio} 0.9-2.4 [facility] Serum or plasma calcium srinivasa urement (mass/volume)Ordered By: Dr. Dey on 02-08-2023 Calcium [Mass/Vol] 9.1 mg/dL 8.5-10.1 [facility] Serum or plasma cholesterol in HDL measurement (mass/volume)Ordered By: Dr. Dey on 02-08-2023 Cholesterol in HDL [Mass/Vol] 53 mg/dL >40 [facility] Comment on above: The drugs N-Acetylcy steine and Metamizole may falsely depress this assay. Reference Range HDL <40 mg/dL Low HDL Cholesterol HDL >or= 60 mg/dL High HDL Cholesterol Serum or plasma cholesterol in VLDL measurement (mass/volume)Ordered By: Dr. Dey on 02-08-2023 Cholesterol in VLDL [Mass/Vol] 14 mg/dL 5-40 [facility] Serum or plasma creatinine m easurement (mass/volume)Ordered By: Dr. Dey on 02-08-2023 Creatinine [Mass/Vol] 0.78 mg/dL 0.55-1.02 [facility] Comment on above: The validity of the calculated GFR & GFRAA in patients over 70 years has not been determined. Clinical correlation is essential. Serum or plasma low density lipoprotein (LDL) cholesterol measurement (mass/volume)Ordered By: Dr. Dey on 02-08-2023 Cholesterol in LDL [Mass/Vol] 116 mg/dL 0-130 [facility] Serum or plasma urea nitroge n measurement (mass/volume)Ordered By: Dr. Dey on 02-08-2023 Urea nitrogen [Mass/Vol] 16 mg/dL 7-18 [facility] Thin prep Papanicolaou smear with manual screeningOrdered By: Dr. Dey on 02-08-2023 Thin prep Papanicolaou smear with manual screening 23 U/L 15-37 [facility] Thin prep Papanicolaou smear with manual screening 6 5-15 [facility] - Hematology and Cell countson 11-11-2022 HbA1c (Bld) [Mass fraction] 7.2 % [facility] - Hematology and Cell countson 05-13-2022 HbA1c (Bld) [Mass fraction] 6.5 % [facility] Work Phone: Basophil percentageon 2021 Bilirubin [Mass/Vol] 0.90 mg/dL 0.20-1.00 [facility] Work Phone: [phone] Comment on above: For patients on eltr ombopag therapy, use of Dimension [place] TBIL is not recommended. Chloride [Moles/Vol] 106 mmol/L 98-107 [facility] Work Phone: [phone] Cholesterol [Mass/Vol] 185 mg/dL <200 [facility] Work Phone: [phone] Comment on above: <200 mg/dL Desirable 200-240 mg/dL Borderline >240 mg/dL High Risk Glucose [Mass/Vol] 237 mg/dL 74-106 [facility] Work Phone: [phone] Comment on above: Glucose result great er than or equal to 200 mg/dLsuggests DIABETES MELLITUS per A.D.A. criteria. Potassium [Moles/Vol] 4.4 mmol/L 3.5-5.1 [facility] Work Phone: [phone] Protein [Mass/Vol] 7.7 g/dL 6.4-8.2 [facility] Work Phone: [phone] Sodium [Moles/Vol] 138 mmol/L 136-145 [facility] Work Phone: [phone] Triglyceride [Mass/Vol] 68 mg/dL [facility] Work Phone: [phone] Comment on above: The drugs N-Acetylcy steine and Metamizole may falsely depress this assay.Serum Triglycerides Reference Interval Normal <150 mg/dL Borderline high 150 - 199 mg/dL High 200 - 499 mg/dL Very High > or = 500 mg/dL Laboratory - Chemistry and C hemistry - challengeon 12-15-2021 ALP [Catalytic activity/Vol] 116 U/L 45-117 [facility] Work Phone: [phone] ALT [Catalytic activity/Vol] 31 U/L 13-56 [facility] Work Phone: [phone] CO2 [Moles/Vol] 30.0 mmol/L 21.0-32.0 [facility] Work Phone: [phone] Free T4 [Mass/Vol] 1.36 ng/dL 0.76-1.46 [facility] Work Phone: [phone] Globulin (S) [Mass/Vol] 4.2 g/dL 2.2-4.2 [facility] Work Phone: [phone] Urea nitrogen/Creatinine [Mass ratio] 24.9 mg/mg 10-20 [facility] Work Phone: [phone] Laboratory - Hematology and Cell countson 12-15-2021 HbA1c (Bld) [Mass fraction] 6.6 % [facility] Work Phone: No Panel Informationon 12-15 Estimated GFR (MDRD) Amer 104 mL/min >60 [facility] Work Phone: Comment on above: GFR Calc Estimated GFR (MDRD) Non-Af Amer 86 mL/min >60 [facility] Work Phone: [phone] Comment on above: Non- GFR Calc Thyroid Stimulating Hormone (TSH) 2.04 uIU/mL 0.358-3.74 [facility] Work Phone: [phone] Urine Microalbumin/Creatini ne Ratio 11.8 mg/g CRE <30 [facility] Work Phone: [phone] Vitamin D 25-Hydroxy 86.4 ng/mL [facility] Work Phone: [phone] Comment on above: Vitamin D 25(OH) Sta tus Range Deficiency <20 ng/mL (50nmol/L) Insufficiency 20 - 30 ng/mL (50 - 75 nmol/L) Sufficiency 30 - 100 ng/mL (75 - 250 nmol/L) Toxicity >100 ng/mL (>250 nmol/L) Serum or plasma albumin srinivasa urement (mass/volume)on 12-15-2021 Albumin [Mass/Vol] 3.5 g/dL 3.2-5.0 [facility] Work Phone: Serum or plasma albumin/glob ulin mass ratioon 12-15-2021 Albumin/Globulin [Mass ratio] 0.8 {ratio} 0.9-2.4 [facility] Work Phone: Serum or plasma calcium srinivasa urement (mass/volume)on 12-15-2021 Calcium [Mass/Vol] 8.9 mg/dL 8.5-10.1 [facility] Work Phone: Serum or plasma cholesterol in HDL measurement (mass/volume)on 12-15-2021 Cholesterol in HDL [Mass/Vol] 61 mg/dL [facility] Work Phone: Comment on above: The drugs N-Acetylcy steine and Metamizole may falsely depress this assay. Reference Range HDL <40 mg/dL Low HDL Cholesterol HDL >or= 60 mg/dL High HDL Cholesterol Serum or plasma cholesterol in VLDL measurement (mass/volume)on 12-15-2021 Cholesterol in VLDL [Mass/Vol] 14 mg/dL 5-40 [facility] [facility]: Serum or plasma creatinine m easurement (mass/volume)on 12-15-2021 Creatinine [Mass/Vol] 0.72 mg/dL 0.55-1.02 [facility] Work Phone: Comment on above: The validity of the calculated GFR & GFRAA in patients over 70 years has not been determined. Clinical correlation is essential. Serum or plasma low density lipoprotein (LDL) cholesterol measurement (mass/volume)on 12-15-2021 Cholesterol in LDL [Mass/Vol] 110 mg/dL 0-130 [facility] Work Phone: Serum or plasma urea nitroge n measurement (mass/volume)on 12-15-2021 Urea nitrogen [Mass/Vol] 18 mg/dL 7-18 [facility] Work Phone: Thin prep Papanicolaou smear with manual screeningon 12-15-2021 Thin prep Papanicolaou smear with manual screening 17 U/L 15-37 [facility] Work Phone: [phone] Thin prep Papanicolaou smear with manual screening 2 5-15 [facility] Work Phone: [phone] Thin prep Papanicolaou smear with manual screening 24.0 mg/L NO RANGE EST. [facility] Work Phone: Urine creatinine measurement (mass/volume)on 12-15-2021 Creatinine (U) [Mass/Vol] 203.00 mg/dL NO RANGE EST. [facility] Work Phone: Laboratory - Hematology and Cell countson 04-23-2021 Basophils (Bld) [#/Vol] 0.00 {3/UL} Normal 0.00 - 0.10 {3/UL} [facility], [facility]; [email or web address] Basophils/100 WBC (Bld) 0.8 % Normal 0.0 - 2.0 % [email or web address]; [facility], [facility] CBC W Auto Differential panel (Bld) CBC + DIFF Normal [facility]; [facility], [facility] Eosinophils (Bld) [#/Vol] 0.10 {3/UL} Normal 0.00 - 0.50 {3/UL} [facility], [facility].; [email or web address] Eosinophils/100 WBC (Bld) 3.2 % Normal 0.0 - 7.0 % [facility]; [facility], [facility] Erythrocyte distribution width (RBC) [Ratio] 12.6 % Normal 12.0 - 15.6 % [facility]; [place] [facility], [facility] Hematocrit (Bld) [Volume fraction] 39.6 % Normal 34.0 - 46.0 % [facility], [facility]; [place] [facility], [facility] Hemoglobin (Bld) [Mass/Vol] 13.4 g/dL Normal 12.0 - 16.0 g/dL [facility], [facility]; [employer]. Lymphocytes (Bld) [#/Vol] 2.00 {3/UL} Normal 0.80 - 2.80 {3/UL} [employer], [employer].; [employer] Lymphocytes/100 WBC (Bld) 44.9 % Normal 20.0 - 45.0 % [place] [employer], [employer]. MCH (RBC) [Entitic mass] 31 pg Normal 27 - 33 pg [place] [employer] MCHC (RBC) [Mass/Vol] 34 {X10_3} Normal 32 - 3 6 {X10_3} [employer].; [employer] MCV (RBC) [Entitic vol] 91 fL Normal 80 - 99 fL [place] [employer] [employer].; [employer] Monocytes (Bld) [#/Vol] 0.30 {3/UL} Normal 0.20 - 1.00 {3/UL} [employer] Monocytes/100 WBC (Bld) 7.1 % Normal 0.0 - 10.0 % [employer] [employer].; [employer], [employer]. Morphology Lonnie (Bld) [Interp] N/A Normal [place] [employer] Neutrophils (Bld) [#/Vol] 2.00 {3/UL} Normal 1.50 - 7.10 {3/UL} [employer] Neutrophils/100 WBC (Bld) 44.0 % Abnormal 46.0 - 76.0 % [employer], [employer]. Platelet mean volume (Bld) [Entitic vol] 10.1 fL Normal 6.6 - 10.5 fL [employer] Platelets (Bld) [#/Vol] 204 {3/UL} Normal 150 - 450 {3/UL} [employer], [employer].; [employer]. RBC (Bld) [#/Vol] 4.37 {6/UL} Normal 4.10 - 5.3 0 {6/UL} [email or web address].; [facility], [facility]. WBC (Bld) [#/Vol] 4.5 {3/UL} Normal 4.5 - 10.8 {3/UL} [facility], [facility].; [facility], [facility]. No Panel Informationon 04-23 MANUAL DIFF N/A Normal [email or web address].; [facility], [facility]. Hemoglobin A1con 11-15-2019 HbA1c (Bld) [Mass fraction] 157 mg/dL Normal [facility] Comment on above: Performed By: #### Jordyn SOLANO #### [facility] Ping Communication Routine Lab [address] [phone] HbA1c (Bld) [Mass fraction] 7.1 % High 4.3-5.6 [facility] Comment on above: Performed By: #### Jordyn SOLANO #### [facility] Ping Communication Routine Lab [phone] Hemoglobin A1con 08-09-2019 HbA1c (Bld) [Mass fraction] 157 mg/dL Normal [facility] Comment on above: Performed By: #### Jordyn HERNANDEZ1C #### [facility] Ping Communication Routine Lab [address] [phone] HbA1c (Bld) [Mass fraction] 7.1 % High 4.3-5.6 [facility] Comment on above: Performed By: #### Jordyn HERNANDEZ1C #### [facility] Ping Communication Routine Lab [address] [address] Hemoglobin A1con 04-20-2019 HbA1c (Bld) [Mass fraction] 6.6 % High 4.3-5.6 [facility] Comment on above: Performed By: #### Jordyn HERNANDEZ1C #### [facility] Ping Communication Routine Lab [address] [address] HbA1c (Bld) [Mass fraction] 143 mg/dL Normal [facility] Comment on above: Performed By: #### Jordyn BA1C #### [facility] Ping Communication Routine Lab [address] [address] DHEA-Son 01-19-2019 DHEA-S 45.1 ug/dL Normal 18.9-205.0 [facility] Comment on above: Performed By: #### H BA1C, DHEAS, E2, FSH #### [facility] Ping Communication Routine Lab [address] [place] [address] Estradiol-17Bon 01-19-2019 Estradiol-17B <25 Normal [facility] Comment on above: Performed By: #### H BA1C, DHEAS, E2, FSH #### [facility] Ping Communication Routine Lab [address] [place] [address] FSHon 01-19-2019 FSH Normal [facility] Comment on above: Result Comment: 67.2 Reference Follicular: 2-11 Midcycle: 10-30 Luteal: 1-9 Post Ely: 20-100 range: Follicular: 2-11 Midcycle: 10-30 Luteal: 1-9 Post Ely: 20-100 Performed By: #### H BA1C, DHEAS, E2, FSH #### [facility] Ping Communication Routine Lab [address] [place] [address] Hemoglobin A1con 01-19-2019 HbA1c (Bld) [Mass fraction] 134 mg/dL Normal [facility] Comment on above: Performed By: #### H BA1C, DHEAS, E2, FSH #### [facility] Ping Communication Routine Lab [address] [place], [place] [phone] HbA1c (Bld) [Mass fraction] 6.3 % High 4.3-5.6 [facility] Comment on above: Performed By: #### H BA1C, DHEAS, E2, FSH #### [facility] Ping Communication Routine Lab [address] [place], [place] [phone] Final Surgical Pathology Rep vanessa 05-15-2018 Final Surgical Pathology Report . Pathology ReportsAccession: Collected Date/Time: Received Date/Time: Pathologist:[id number] 05/11/2018 14:55 EDT 05/12/2018 14:55 EDT MD THOMAS SEAY Final Surgical Pathology ReportDIAGNOSIS:A) RIGHT AND LEFT COLON, BIOPSIES: LYMPHOCYTIC COLITIS.B) TERMINAL ILEUM, BIOPSY: NO SPECIFIC PATHOLOGIC CHANGES. NEGATIVE FOR ILEITIS.CLINICAL INFORMATION:DIARRHEA --- R/O MICROSCOPIC COLITISSPECIMEN:A COLON, BX - RIGHT & LEFTB SM INT, BX - TERMINAL ILEUMGROSS DESCRIPTION:A. Received in formalin labeled right and left colon biopsies are several emerson glistening soft tissues ranging from 0.2-0.3 cm. TS -1B. Received in formalin labeled terminal ileum is a 0.5 cm emerson glistening soft tissue. TS -1Dictated by NORMA ALMARAZ ([facility])MICROSCOPIC DESCRIPTION:A&B) Slides reviewed.Electronically Signed byPathology Report verified by [facility] signed by THOMAS LOPEZign out Date: 05/15/2018 15:03Performing Lab: [facility], [address] [place] [address] Normal [facility] ([place]) Comment on above: Performed By: #### S PFR ####[place] [address] Laboratory - Chemistry and C hemistry - challengeon 04-14-2018 Lactoferrin LA Ql (Stl) LACTOFERRIN, QUALITATIVE, STOOL Normal [place] [email or web address]; [employer]. Laboratory - Microbiology an d Antimicrobial susceptibilityon 04-14-2018 Bacteria identified Cx Nom (Stl) CULTURE STOOL Normal [place] [email or web address]; [employer]. No Panel Informationon 04-14 External Ctrl done? YES Normal [email or web address]; [employer]. Observation duration PASS Normal [email or web address].; [employer]. Laboratory - Chemistry and C hemistry - challengeon 04-13-2018 Albumin [Mass/Vol] 3.3 g/dL Abnormal 3.4 - 4.8 g/dL [place] [employer]. Albumin [Mass/Vol] 1.1 g/dL Normal 0.9 - 1.6 [place] [employer]. ALP [Catalytic activity/Vol] 87 U/L Normal 38 - 126 U/L [facility].; [facility], [facility]. ALT [Catalytic activity/Vol] 51 U/L Abnormal 8 - 35 U/L [facility].; [facility], [facility]. ALT No additional P-5'-P [Catalytic activity/Vol] 51 U/L Abnormal 8 - 35 U/L [facility].; [facility], [facility]. Anion gap [Moles/Vol] 3 mmol/L Abnormal 10 - 2 0 mmol/L [facility].; [facility], [facility]. AST [Catalytic activity/Vol] 59 U/L Abnormal 13 - 39 U/L [facility].; [facility], [facility]. Bilirubin [Mass/Vol] 0.4 mg/dL Normal 0.0 - 1 .5 mg/dL [facility].; [facility], [facility] Calcium [Mass/Vol] 8.4 mg/dL Abnormal 8.6 - 10. 2 mg/dL [facility].; [facility], [facility]. Chloride [Moles/Vol] 107 mmol/L Normal 98 - 10 7 mmol/L [facility].; [facility], [facility]. CO2 [Moles/Vol] 27.9 mmol/L Normal 21.0 - 31.0 mmol/L [facility].; [facility], [facility]. Comprehensive metabolic 2000 panel CMP with eGFR Normal [facility]; [facility], [facility] Creatinine [Mass/Vol] 0.6 mg/dL Normal 0.6 - 1.2 mg/dL [facility], [facility].; [facility], [facility]. GFR/1.73 sq M.predicted among blacks MDRD (S/P/Bld) [Vol rate/Area] mL/min/{1.73_m2} Normal 60 - 999 {ML/MINUTE} [facility], [facility].; [facility], [facility]. GFR/1.73 sq M.predicted MDRD (S/P/Bld) [Vol rate/Area] mL/min/{1.73_m2} Normal 60 - 999 {ML/MINUTE} [facility], [facility].; [facility], [facility]. Globulin (S) [Mass/Vol] 3.0 g/dL Normal 1.5 - 3.8 g/dL [facility].; [facility], [facility] Glucose [Mass/Vol] 137 mg/dL Abnormal 74 - 106 mg/dL [facility].; [facility], [facility]. Lipase [Catalytic activity/Vol] 64.0 U/L Abnormal 18.0 - 51.0 U/L [facility].; [facility], [facility] Potassium [Moles/Vol] 3.5 mmol/L Normal 3.5 - 5.1 mmol/L [facility].; [facility], [facility] Protein [Mass/Vol] 6.3 g/dL Abnormal 6.4 - 8.3 g/dL [facility].; [facility], [facility] Sodium [Moles/Vol] 134 mmol/L Abnormal 136 - 145 mmol/L [facility].; [facility], [facility] Urea nitrogen [Mass/Vol] 12 mg/dL Normal 6 - 20 mg/dL [email or web address].; [facility], [facility] Urea nitrogen/Creatinine [Mass ratio] 20 {ratio} Normal 0 - 30 {ratio} [email or web address].; [facility], [facility] Laboratory - Hematology and Cell countson 04-13-2018 Basophils (Bld) [#/Vol] 0.00 {3/UL} Normal 0.00 - 0.10 {3/UL} [facility].; [facility], [facility] Basophils/100 WBC (Bld) 0.4 % Normal 0.0 - 2.0 % [email or web address].; [place] [facility], [facility]. CBC W Auto Differential panel (Bld) CBC Normal [facility].; [facility], [facility] Eosinophils (Bld) [#/Vol] 0.00 {3/UL} Normal 0.00 - 0.50 {3/UL} [facility], [facility].; [facility], [facility]. Eosinophils/100 WBC (Bld) 0.0 % Normal 0.0 - 7.0 % [email or web address].; [facility], [facility] Erythrocyte distribution width (RBC) [Ratio] 17.8 % Abnormal 12.0 - 15.6 % [email or web address].; [place] [facility], [facility]. Hematocrit (Bld) [Volume fraction] 36.3 % Normal 34.0 - 46.0 % [facility], [facility].; [facility], [facility]. Hemoglobin (Bld) [Mass/Vol] 12.2 g/dL Normal 12.0 - 16.0 g/dL [facility], [facility].; [facility], [facility]. Lymphocytes (Bld) [#/Vol] 2.80 {3/UL} Normal 0.80 - 2.80 {3/UL} [facility], [facility].; [facility], [facility]. Lymphocytes/100 WBC (Bld) 37.1 % Normal 20.0 - 45.0 % [facility], [facility].; [place] [facility], [facility]. MCH (RBC) [Entitic mass] 27 pg Normal 27 - 33 pg [facility], [facility].; [place] [employer], [facility]. MCHC (RBC) [Mass/Vol] 34 {X10_3} Normal 32 - 3 6 {X10_3} [email or web address].; [employer] MCV (RBC) [Entitic vol] 81 fL Normal 80 - 99 fL [place] [facility], [facility].; [place] [employer], [facility]. Monocytes (Bld) [#/Vol] 0.80 {3/UL} Normal 0.20 - 1.00 {3/UL} [place] [employer], [facility].; [place] [employer], [facility]. Monocytes/100 WBC (Bld) 10.3 % Abnormal 0.0 - 10.0 % [facility], [facility].; [employer], [facility]. Morphology Lonnie (Bld) [Interp] N/A Normal [place] [email or web address].; [place] [employer], [facility]. Neutrophils (Bld) [#/Vol] 4.00 {3/UL} Normal 1.50 - 7.10 {3/UL} [place] [employer], [facility].; [place] [employer] Neutrophils/100 WBC (Bld) 52.2 % Normal 46.0 - 76.0 % [place] [employer], [facility].; [employer], [facility]. Platelet mean volume (Bld) [Entitic vol] 10.2 fL Normal 6.6 - 10.5 fL [employer].; [employer]. Platelets (Bld) [#/Vol] 325 {3/UL} Normal 150 - 450 {3/UL} [employer].; [employer] RBC (Bld) [#/Vol] 4.46 {6/UL} Normal 4.10 - 5.3 0 {6/UL} [employer].; [employer]. WBC (Bld) [#/Vol] 7.6 {3/UL} Normal 4.5 - 10.8 {3/UL} [employer].; [employer]. Laboratory - Serology - non- microon 04-13-2018 Gliadin IgA IA Qn (S) CELIAC DISEASE CEE EL [QUEST] Normal [employer].; [employer]. No Panel Informationon 04-13 AGE 63 {years} Normal [employer].; [employer]. MANUAL DIFF N/A Normal [employer]. Laboratory - Chemistry and C hemistry - challengeon 08-17-2017 Albumin/Creatinine DL <= 20 mg/L (U) [Mass ratio] 30-300 mg/g Abnormal [employer]. Creatinine (U) [Mass/Vol] 50 mg/dL Normal [employer].; [employer]. Laboratory - Urinalysison Protein Ql (U) 10 mg/dL Normal [employer].; [employer]. Laboratory - Chemistry and C hemistry - challengeon 05-11-2016 Albumin/Creatinine DL <= 20 mg/L (U) [Mass ratio] mg/g Normal [employer].; [employer]. Creatinine (U) [Mass/Vol] 200 mg/dL Normal [employer].; [employer]. Laboratory - Urinalysison Protein Ql (U) 30 mg/dL Abnormal [employer]. Laboratory - Chemistry and C hemistry - challengeon 04-23-2016 Albumin [Mass/Vol] 3.8 g/dL Normal 3.4 - 4.8 g/dL [email or web address]; [email or web address] Albumin [Mass/Vol] 1.3 g/dL Normal 0.9 - 1.6 [facility].; [facility], [facility] ALP [Catalytic activity/Vol] 88 U/L Normal 38 - 126 U/L [facility].; [email or web address]. ALT [Catalytic activity/Vol] 20 U/L Normal 8 - 35 U/L [facility].; [email or web address] ALT No additional P-5'-P [Catalytic activity/Vol] 20 U/L Normal 8 - 35 U/L [facility]; [place] [email or web address] Anion gap [Moles/Vol] 8 mmol/L Abnormal 10 - 2 0 mmol/L [facility].; [email or web address]. AST [Catalytic activity/Vol] 31 U/L Normal 13 - 39 U/L [email or web address].; [place] [email or web address]. Bilirubin [Mass/Vol] 0.8 mg/dL Normal 0.0 - 1 .5 mg/dL [email or web address]; [email or web address]. Calcium [Mass/Vol] 9.1 mg/dL Normal 8.6 - 10. 2 mg/dL [email or web address].; [place] [email or web address] Chloride [Moles/Vol] 105 mmol/L Normal 98 - 10 7 mmol/L [email or web address].; [facility], [facility]. Cholesterol [Mass/Vol] 202 mg/dL Abnormal 0 - 200 mg/dL [email or web address].; [facility], [facility]. Cholesterol in HDL [Mass or moles/Vol] 58 mg/dL Normal 40 - 60 mg/dL [email or web address].; [facility], [facility]. Cholesterol in LDL [Mass/Vol] 131 mg/dL Abnormal 0 - 129 mg/dL [facility].; [place] [facility], [facility] Cholesterol.total/Cho lesterol in HDL [Mass ratio] 3.5 {ratio} Normal 0.0 - 5.0 [email or web address]; [facility] CO2 [Moles/Vol] 28.0 mmol/L Normal 13.0 - 29.0 mmol/L [facility].; [facility], [facility] Comprehensive metabolic 2000 panel CMP with eGFR Normal [facility].; [facility], [facility] Creatinine [Mass/Vol] 0.7 mg/dL Normal 0.6 - 1.2 mg/dL [facility].; [facility], [facility] GFR/1.73 sq M.predicted among blacks MDRD (S/P/Bld) [Vol rate/Area] mL/min/{1.73_m2} Normal 60 - 999 {ML/MINUTE} [facility], [facility].; [facility], [facility]. GFR/1.73 sq M.predicted MDRD (S/P/Bld) [Vol rate/Area] mL/min/{1.73_m2} Normal 60 - 999 {ML/MINUTE} [facility], [facility].; [facility], [facility]. Globulin (S) [Mass/Vol] 3.0 g/dL Normal 1.5 - 3.8 g/dL [facility].; [facility], [facility]. Glucose [Mass/Vol] 92 mg/dL Normal 74 - 106 mg/dL [facility], [facility].; [facility], [facility]. Lipid 1996 panel LIPID PROFILE Normal [facility].; [facility], [facility] Potassium [Moles/Vol] 3.3 mmol/L Abnormal 3.5 - 5.1 mmol/L [facility].; [facility], [facility] Protein [Mass/Vol] 6.8 g/dL Normal 6.4 - 8.3 g/dL [facility], [facility].; [facility], [facility]. Sodium [Moles/Vol] 138 mmol/L Normal 136 - 145 mmol/L [facility], [facility].; [facility], [facility]. Triglyceride [Mass/Vol] 65 mg/dL Normal 0 - 150 mg/dL [facility], [facility].; [facility], [facility] Urea nitrogen [Mass/Vol] 12 mg/dL Normal 6 - 20 mg/dL [facility].; [facility] Urea nitrogen/Creatinine [Mass ratio] 17 {ratio} Normal 0 - 30 {ratio} [facility] [employer] Laboratory - Hematology and Cell countson 04-23-2016 HbA1c (Bld) [Mass fraction] 7.0 % Abnormal 4.4 - 6.4 % [facility] [employer]. No Panel Informationon 04-23 AGE 61 {years} Normal [place] [facility] [employer]. Laboratory - Chemistry and C hemistry - challengeon 10-22-2015 Albumin [Mass/Vol] 4.0 g/dL Normal 3.4 - 4.8 g/dL [place] [facility] [employer]. Albumin [Mass/Vol] 1.4 g/dL Normal 0.9 - 1.6 [place] [facility] [employer], [employer]. ALP [Catalytic activity/Vol] 102 U/L Normal 38 - 126 U/L [place] [facility] [employer], [employer]. ALT [Catalytic activity/Vol] 12 U/L Normal 8 - 35 U/L [place] [employer]. ALT No additional P-5'-P [Catalytic activity/Vol] 12 U/L Normal 8 - 35 U/L [place] [facility] [employer], [employer]. Anion gap [Moles/Vol] 8 mmol/L Abnormal 10 - 2 0 mmol/L [place] [facility] [employer], [employer]. AST [Catalytic activity/Vol] 18 U/L Normal 13 - 39 U/L [place] [employer] [facility].; [employer], [employer]. Bilirubin [Mass/Vol] 1.0 mg/dL Normal 0.0 - 1 .5 mg/dL [place] [facility], [employer].; [employer], [employer]. Calcium [Mass/Vol] 9.2 mg/dL Normal 8.6 - 10. 2 mg/dL [place] [facility], [employer].; [employer], [employer]. Chloride [Moles/Vol] 103 mmol/L Normal 98 - 10 7 mmol/L [facility] [employer], [employer]. Cholesterol [Mass/Vol] 244 mg/dL Abnormal 0 - 200 mg/dL [facility].; [facility], [facility]. Cholesterol in HDL [Mass or moles/Vol] 53 mg/dL Normal 40 - 60 mg/dL [facility]; [facility] Cholesterol in LDL [Mass/Vol] 177 mg/dL Abnormal 0 - 129 mg/dL [facility].; [facility], [facility] Cholesterol.total/Cho lesterol in HDL [Mass ratio] 4.6 {ratio} Normal 0.0 - 5.0 [facility]; [facility], [facility] CO2 [Moles/Vol] 30.0 mmol/L Abnormal 13.0 - 29.0 mmol/L [facility]; [facility], [facility] Comprehensive metabolic 2000 panel CMP with eGFR Normal [facility]; [facility], [facility] Creatinine [Mass/Vol] 0.8 mg/dL Normal 0.6 - 1.2 mg/dL [facility]; [facility], [facility]. GFR/1.73 sq M.predicted among blacks MDRD (S/P/Bld) [Vol rate/Area] mL/min/{1.73_m2} Normal 60 - 999 {ML/MINUTE} [facility].; [facility], [facility]. GFR/1.73 sq M.predicted MDRD (S/P/Bld) [Vol rate/Area] mL/min/{1.73_m2} Normal 60 - 999 {ML/MINUTE} [facility], [facility].; [facility], [facility]. Globulin (S) [Mass/Vol] 2.9 g/dL Normal 1.5 - 3.8 g/dL [facility].; [facility], [facility]. Glucose [Mass/Vol] 147 mg/dL Abnormal 74 - 106 mg/dL [facility].; [facility], [facility]. Lipid 1996 panel LIPID PROFILE Normal [facility]; [facility], [facility] Potassium [Moles/Vol] 3.8 mmol/L Normal 3.5 - 5.1 mmol/L [facility]; [facility], [facility] Protein [Mass/Vol] 6.9 g/dL Normal 6.4 - 8.3 g/dL [facility] Sodium [Moles/Vol] 137 mmol/L Normal 136 - 145 mmol/L [facility]; [facility] Triglyceride [Mass/Vol] 69 mg/dL Normal 0 - 150 mg/dL [facility]; [place] [facility] TSH Qn 3.28 m[IU]/L Normal 0.34 - 5.60 {uIU/ml} [facility]; [facility] Urea nitrogen [Mass/Vol] 17 mg/dL Normal 6 - 20 mg/dL [facility]; [facility] Urea nitrogen/Creatinine [Mass ratio] 21 {ratio} Normal 0 - 30 {ratio} [facility]; [place] [employer] [facility] Laboratory - Hematology and Cell countson 10-22-2015 HbA1c (Bld) [Mass fraction] 7.1 % Abnormal 4.4 - 6.4 % [facility]; [place] [facility] No Panel Informationon 10-22 AGE 60 {years} Normal [facility]; [place] [facility] Laboratory - Chemistry and C hemistry - challengeon 04-25-2015 Albumin/Creatinine DL <= 20 mg/L (U) [Mass ratio] mg/g Normal [facility]; [place] [facility] Creatinine (U) [Mass/Vol] 50 mg/dL Normal [facility].; [place] [employer] Laboratory - Urinalysison Protein Ql (U) 10mg/dL Normal [facility]; [place] [facility] Laboratory - Chemistry and C hemistry - challengeon 04-22-2015 Albumin [Mass/Vol] 3.8 g/dL Normal 3.4 - 4.8 g/dL [facility]; [place] [facility], [facility] Albumin [Mass/Vol] 1.5 g/dL Normal 0.9 - 1.6 [facility]; [place] [facility] ALP [Catalytic activity/Vol] 88 U/L Normal 38 - 126 U/L [facility].; [facility]. ALT [Catalytic activity/Vol] 12 U/L Normal 8 - 35 U/L [facility].; [facility] ALT No additional P-5'-P [Catalytic activity/Vol] 12 U/L Normal 8 - 35 U/L [facility].; [facility]. AST [Catalytic activity/Vol] 17 U/L Normal 13 - 39 U/L [facility].; [facility] Bilirubin [Mass/Vol] 0.8 mg/dL Normal 0.0 - 1 .5 mg/dL [facility]; [facility] Calcium [Mass/Vol] 9.2 mg/dL Normal 8.6 - 10. 2 mg/dL [facility]; [facility] Chloride [Moles/Vol] 105 mmol/L Normal 98 - 10 7 mmol/L [facility]; [facility] Cholesterol [Mass/Vol] 207 mg/dL Abnormal 0 - 200 mg/dL [facility]; [facility]. Cholesterol in HDL [Mass or moles/Vol] 55 mg/dL Normal 40 - 60 mg/dL [facility]; [facility]. Cholesterol in LDL [Mass/Vol] 140 mg/dL Abnormal 0 - 129 mg/dL [facility].; [facility], [facility]. Cholesterol.total/Cho lesterol in HDL [Mass ratio] 3.8 {ratio} Normal 0.0 - 5.0 [facility]; [facility] CO2 [Moles/Vol] 30.0 mmol/L Abnormal 13.0 - 29.0 mmol/L [facility]; [facility], [facility] Comprehensive metabolic 2000 panel CMP with eGFR Normal [facility]; [facility] Creatinine [Mass/Vol] 0.7 mg/dL Normal 0.6 - 1.2 mg/dL [facility].; [facility], [facility] GFR/1.73 sq M.predicted among blacks MDRD (S/P/Bld) [Vol rate/Area] mL/min/{1.73_m2} Normal 60 - 999 {ML/MINUTE} [facility].; [place] [facility] GFR/1.73 sq M.predicted MDRD (S/P/Bld) [Vol rate/Area] mL/min/{1.73_m2} Normal 60 - 999 {ML/MINUTE} [facility], [facility].; [place] [employer]. Globulin (S) [Mass/Vol] 2.6 g/dL Normal 1.5 - 3.8 g/dL [facility].; [place] [facility], [employer]. Glucose [Mass/Vol] 152 mg/dL Abnormal 74 - 106 mg/dL [facility].; [place] [employer]. Lipid 1996 panel LIPID PROFILE Normal [facility].; [place] [employer]. Potassium [Moles/Vol] 3.8 mmol/L Normal 3.5 - 5.1 mmol/L [facility].; [place] [employer]. Protein [Mass/Vol] 6.4 g/dL Normal 6.4 - 8.3 g/dL [facility].; [place] [employer]. Sodium [Moles/Vol] 138 mmol/L Normal 136 - 145 mmol/L [place] [facility].; [place] [employer]. Triglyceride [Mass/Vol] 60 mg/dL Normal 0 - 150 mg/dL [facility].; [place] [employer]. Urea nitrogen [Mass/Vol] 12 mg/dL Normal 6 - 20 mg/dL [facility].; [employer]. Urea nitrogen/Creatinine [Mass ratio] 17 {ratio} Normal 0 - 30 {ratio} [place] [facility].; [employer], [employer]. Laboratory - Hematology and Cell countson 04-22-2015 HbA1c (Bld) [Mass fraction] 6.5 % Abnormal 4.4 - 6.4 % [facility].; [employer], [employer]. No Panel Informationon 04-22 AGE 60 {years} Normal [place] [facility].; [place] [employer] Laboratory - Hematology and Cell countson 10-25-2014 HbA1c (Bld) [Mass fraction] 7.0 % Normal 4.6 - 7.1 % [facility]; [facility] Laboratory - Chemistry and C hemistry - challengeon 10-22-2014 TSH Qn 1.48 m[IU]/L Normal 0.34 - 5.60 {uIU/ml} [facility]; [place] [facility] Laboratory - Chemistry and C hemistry - challengeon 04-26-2014 Albumin/Creatinine DL <= 20 mg/L (U) [Mass ratio] mg/g Normal [facility]; [facility] Creatinine (U) [Mass/Vol] 200 mg/dL Normal [facility]; [place] [facility] Laboratory - Urinalysison Protein Ql (U) 30 mg/dL Abnormal [facility]; [place] [facility] Laboratory - Chemistry and C hemistry - challengeon 04-23-2014 Albumin [Mass/Vol] 4.0 g/dL Normal 3.4 - 4.8 g/dL [facility]; [facility] Albumin [Mass/Vol] 1.4 g/dL Normal 0.9 - 1.6 [facility]; [place] [facility]. ALP [Catalytic activity/Vol] 97 U/L Normal 38 - 126 U/L [facility]; [place] [facility]. ALT [Catalytic activity/Vol] 11 U/L Normal 8 - 35 U/L [facility].; [place] [facility]. ALT No additional P-5'-P [Catalytic activity/Vol] 11 U/L Normal 8 - 35 U/L [facility].; [place] [facility]. AST [Catalytic activity/Vol] 17 U/L Normal 13 - 39 U/L [facility].; [place] [facility]. Bilirubin [Mass/Vol] 1.1 mg/dL Normal 0.0 - 1 .5 mg/dL [facility].; [place] [facility] Calcium [Mass/Vol] 9.2 mg/dL Normal 8.6 - 10. 2 mg/dL [facility]; [facility], [facility]. Chloride [Moles/Vol] 104 mmol/L Normal 98 - 10 7 mmol/L [facility].; [facility], [facility]. Cholesterol [Mass/Vol] 184 mg/dL Normal 0 - 200 mg/dL [facility].; [facility], [facility]. Cholesterol in HDL [Mass or moles/Vol] 59 mg/dL Normal 40 - 60 mg/dL [facility].; [facility], [facility] Cholesterol in LDL [Mass/Vol] 110 mg/dL Normal 0 - 129 mg/dL [facility].; [facility], [facility] Cholesterol.total/Cho lesterol in HDL [Mass ratio] 3.1 {ratio} Normal 0.0 - 5.0 [facility]; [facility], [facility] CO2 [Moles/Vol] 31.0 mmol/L Abnormal 13.0 - 29.0 mmol/L [facility].; [facility], [facility]. Comprehensive metabolic 2000 panel CMP with eGFR Normal [facility]; [facility], [facility] Creatinine [Mass/Vol] 0.7 mg/dL Normal 0.6 - 1.2 mg/dL [facility], [facility].; [facility], [facility]. GFR/1.73 sq M.predicted among blacks MDRD (S/P/Bld) [Vol rate/Area] mL/min/{1.73_m2} Normal 60 - 999 {ML/MINUTE} [facility], [facility].; [facility], [facility]. GFR/1.73 sq M.predicted MDRD (S/P/Bld) [Vol rate/Area] mL/min/{1.73_m2} Normal 60 - 999 {ML/MINUTE} [facility], [facility].; [facility], [facility]. Globulin (S) [Mass/Vol] 2.9 g/dL Normal 1.5 - 3.8 g/dL [facility], [facility].; [facility], [facility]. Glucose [Mass/Vol] 144 mg/dL Abnormal 74 - 106 mg/dL [facility], [facility].; [facility], [facility] Lipid 1996 panel LIPID PROFILE Normal [facility], [facility].; [facility] Potassium [Moles/Vol] 3.4 mmol/L Abnormal 3.5 - 5.1 mmol/L [facility].; [facility] Protein [Mass/Vol] 6.9 g/dL Normal 6.4 - 8.3 g/dL [facility].; [facility], [facility] Sodium [Moles/Vol] 138 mmol/L Normal 136 - 145 mmol/L [facility].; [facility] Triglyceride [Mass/Vol] 75 mg/dL Normal 0 - 150 mg/dL [facility].; [facility], [facility] Urea nitrogen [Mass/Vol] 16 mg/dL Normal 6 - 20 mg/dL [facility].; [facility], [facility] Urea nitrogen/Creatinine [Mass ratio] 23 {ratio} Normal 0 - 30 {ratio} [facility].; [place] [facility] Laboratory - Hematology and Cell countson 04-23-2014 HbA1c (Bld) [Mass fraction] 6.8 % Abnormal 4.4 - 6.4 % [facility].; [place] [facility] No Panel Informationon 04-23 AGE 59 {years} Normal [facility].; [place] [facility] Laboratory - Chemistry and C hemistry - challengeon 10-26-2013 TSH Qn 0.79 m[IU]/L Normal 0.40 - 4.50 {mIU/L} [facility].; [place] [facility]. Laboratory - Hematology and Cell countson 10-26-2013 HbA1c (Bld) [Mass fraction] 6.8 % Normal 4.6 - 7.1 % [facility].; [place] [employer] [facility]. Laboratory - Hematology and Cell countson 07-20-2013 HbA1c (Bld) [Mass fraction] 6.3 % Normal 4.6 - 7.1 % [facility].; [employer], [employer]. Laboratoryon 05-18-2013 Lower GI hemoglobin IA Ql (Stl) Not detected Normal [facility].; [place] [facility] Laboratory - Chemistry and C hemistry - challengeon 04-20-2013 Albumin/Creatinine DL <= 20 mg/L (U) [Mass ratio] 30-300 mg/g Abnormal [facility].; [facility] Creatinine (U) [Mass/Vol] 100 mg/dL Normal [facility].; [place] [facility], [employer]. Laboratory - Cytologyon - Microscopic observation Cyto stain Nom (Cvx) SEE NOTE Normal [facility].; [facility] Laboratory - Urinalysison Protein Ql (U) 10 mg/dl Normal [facility].; [place] [facility], [facility] Laboratory - Chemistry and C hemistry - challengeon 04-18-2013 Albumin [Mass/Vol] 4.0 g/dL Normal 3.20 - 4. 80 g/dL [facility], [facility].; [place] [facility], [facility]. Albumin/Globulin [Mass ratio] 1.5 {ratio} Normal 0.90 - 1.60 [facility], [facility].; [place] [facility]. ALT [Catalytic activity/Vol] 18 U/L Normal 10 - 44 U/L [facility].; [place] [facility], [facility]. AST [Catalytic activity/Vol] 23 U/L Normal 8 - 34 U/L [facility].; [place] [facility], [facility]. Bilirubin [Mass/Vol] 0.9 mg/dL Normal 0.20 - 1.20 mg/dL [facility], [facility].; [place] [facility], [facility]. Calcium [Mass/Vol] 9.1 mg/dL Normal 8.40 - 10 .60 mg/dL [facility], [facility].; [place] [facility]. Chloride [Moles/Vol] 105 mmol/L Normal 98 - 11 0 mmol/L [facility].; [place] [facility], [facility]. Cholesterol [Mass/Vol] 196 mg/dL Normal 0 - 200 mg/dL [facility], [facility].; [place] [facility], [facility]. Cholesterol in HDL [Mass or moles/Vol] 58 mg/dL Normal 40 - 60 mg/dL [facility], [facility].; [place] [facility], [facility]. Cholesterol in LDL [Mass/Vol] 127 mg/dL Abnormal 0 - 100 mg/dL [facility].; [facility]. Cholesterol.total/Cho lesterol in HDL [Mass ratio] 3.4 {ratio} Normal 0.0 - 5.0 [facility].; [place] [facility]. CO2 [Moles/Vol] 30.0 mmol/L Normal 22.0 - 32.0 meq/L [facility].; [place] [facility] Creatinine [Mass/Vol] 0.8 mg/dL Normal 0.50 - 1.20 mg/dL [facility].; [place] [facility]. Globulin (S) [Mass/Vol] 2.7 g/dL Normal 1.50 - 3.80 g/dL [facility].; [place] [facility], [facility]. Glucose [Mass/Vol] 149 mg/dL Abnormal 60 - 100 mg/dL [facility].; [place] [facility] Lipid 1996 panel LIPID PROFILE Normal [facility].; [place] [facility] Potassium [Moles/Vol] 4.4 mmol/L Normal 3.50 - 5.0 mmol/L [facility].; [place] [facility] Protein [Mass/Vol] 6.7 g/dL Normal 6.0 - 8.5 0 g/dL [facility].; [place] [employer] [facility]. Sodium [Moles/Vol] 141 mmol/L Normal 136 - 145 mmol/L [facility].; [place] [employer] [facility]. Triglyceride [Mass/Vol] 53 mg/dL Normal 0 - 150 mg/dL [facility].; [place] [employer]. Urea nitrogen [Mass/Vol] 19 mg/dL Normal 8 - 22 mg/dL [facility].; [place] [employer] [facility]. Laboratory - Hematology and Cell countson 04-18-2013 HbA1c (Bld) [Mass fraction] 6.9 % Normal [place] [facility].; [employer]. No Panel Informationon 04-18 AGE 58 {years} Normal [facility].; [employer]. ALK PHOS 129 U/L Abnormal 38 - 126 U/L [facility].; [place] [employer]. B/C RATIO 24 {ratio} Normal 0 - 30 {ratio} [place] [employer]. eGFR 74 {ML/MINUTE} Normal 60 - 999 {ML/MINUTE} [employer] PANEL NAME eGFR W/CMP (NON-AFRI CAN [place]) Normal [employer]; [employer]. Laboratory - Chemistry and C hemistry - challengeon 02-08-2013 Bilirubin Ql (U) Negative Normal [employer]; [employer]. Ketones Ql (U) Negative Normal [employer]; [employer]. pH (U) 6.0 [pH] Normal 4.6 - 8.0 [employer]; [employer] Specific gravity (U) [Rel density] 1.010 Normal 1.001 - 1.025 [employer]; [employer]. Laboratory - Hematology and Cell countson 02-08-2013 Hemoglobin Ql (U) small Abnormal [employer]; [employer] Laboratory - Microbiology an d Antimicrobial susceptibilityon 02-08-2013 Amoxicillin+Clavulana te [Susc] <=2 Normal [employer]; [employer]. Work Phone: Ampicillin [Susc] <=2 Normal [employer]; [employer] Work Phone: Ampicillin+Sulbactam [Susc] <=2 Normal [employer]; [employer] Work Phone: Bacteria identified Cx Nom (Unsp spec) SEE NOTE Abnormal [employer]; [employer] ceFAZolin [Susc] <=4 Normal [employer]; [employer] Work Phone: Cefepime [Susc] <=1 Normal [employer]; [employer] Work Phone: cefTAZidime [Susc] <=1 Normal [employer]; [facility]. Work Phone: cefTRIAXone [Susc] <=1 Normal [facility]; [facility]. Work Phone: Ciprofloxacin [Susc] <=0.25 Normal [facility].; [facility], [employer]. Work Phone: Ertapenem [Susc] <=0.5 Normal [facility]; [facility]. Work Phone: Gentamicin [Susc] <=1 Normal [facility]; [facility] Work Phone: levoFLOXacin [Susc] <=0.12 Normal [facility].; [facility]. Work Phone: Nitrofurantoin [Susc] 128 Normal [facility]; [facility] Work Phone: Piperacillin+Tazobact am [Susc] <=4 Normal [facility]; [facility]. Work Phone: Tobramycin [Susc] <=1 Normal [facility]; [place] [facility]. Work Phone: Trimethoprim+Sulfamet hoxazole [Susc] <=20 Normal [facility]; [facility] Work Phone: Laboratory - Specimen inform ationon 02-08-2013 Appearance (U) Cloudy Abnormal [facility]; [place] [facility] Color (U) yellow Normal [facility]; [facility] Specimen source Nom (Unsp spec) URINE-VOID Normal [facility]; [place] [facility] Laboratory - Urinalysison Glucose Test strip (U) [Mass/Vol] 500mg/dl Abnormal [facility]; [facility] Leukocyte esterase Test strip Ql (U) small Abnormal [facility].; [facility]. Nitrite Ql (U) Negative Normal [facility]; [facility] Protein Ql (U) Negative Normal [facility].; [facility]. No Panel Informationon 02-08 UA - UROBILINOGEN 0.2 mg/dL Normal [facility]; [facility] Laboratory - Chemistry and C hemistry - challengeon 10-17-2012 TSH Qn 0.76 mU/mL Normal 0.35 - 5.5 mU/mL [facility]; [facility]. Laboratory - Hematology and Cell countson 10-17-2012 HbA1c (Bld) [Mass fraction] 6.6 % Normal 4.6 - 7.1 % [facility]; [place] [facility] Laboratory - Hematology and Cell countson 05-23-2012 WBC LM Ql (Stl) None Seen Normal [facility]; [facility] Laboratory - Microbiology an d Antimicrobial susceptibilityon 05-23-2012 C. difficile toxin A+B IA Qn (Stl) Negative Normal [facility]; [facility]. Campylobacter sp Ab Ql (S) Positive Abnormal [facility].; [facility], [facility]. Salmonella sp Ab LA (S) [Titer] Negative Normal [facility]; [facility], [facility]. Shigella sp Ab Qn (S) Negative Normal [facility].; [facility], [facility]. Yersinia sp Ab Qn (S) Negative Normal [facility].; [facility]. No Panel Informationon 05-23 BLOOD OCCULT PEROXIDASE Negative Normal [facility].; [facility] Cryptosporidm Negative Normal [facility].; [facility] Direct Smear Negative Normal [facility].; [place] [employer] [facility], [facility]. E.histolytica/dispar Negative Normal [facility].; [facility] Giardia Negative Normal [facility].; [facility] Laboratory - Chemistry and C hemistry - challengeon 05-22-2012 Bilirubin Ql (U) Negative Normal [facility].; [place] [facility] Calcium [Mass/Vol] 9.3 mg/dL Normal 8.6 - 10. 4 mg/dL [facility].; [place] [employer]. Chloride [Moles/Vol] 100 mmol/L Normal 98 - 11 0 mmol/L [facility].; [employer]. CO2 [Moles/Vol] 28 mmol/L Normal 21 - 33 mmol/L [facility].; [employer]. Creatinine [Mass/Vol] 0.74 mg/dL Normal 0.50 - 1.05 mg/dL [place] [facility].; [place] [facility], [facility]. GFR/1.73 sq M.predicted among blacks MDRD (S/P/Bld) [Vol rate/Area] 106 {ML/MIN/1.73M2} Normal [place] [facility].; [place] [employer], [facility]. GFR/1.73 sq M.predicted MDRD (S/P/Bld) [Vol rate/Area] 91 {ML/MIN/1.73M2} Normal [place] [employer] [facility].; [employer], [employer]. Glucose [Mass/Vol] 172 mg/dL Abnormal 65 - 99 mg/dL [place] [facility].; [employer], [employer]. Ketones Ql (U) Negative Normal [place] [employer] [facility].; [employer], [employer]. pH (U) 6.0 [pH] Normal 4.6 - 8.0 [place] [facility].; [employer], [employer]. Potassium [Moles/Vol] 3.9 mmol/L Normal 3.5 - 5.3 mmol/L [place] [facility].; [employer], [employer]. Sodium [Moles/Vol] 138 mmol/L Normal 135 - 146 mmol/L [place] [facility].; [employer], [employer]. Specific gravity (U) [Rel density] >1.030 Normal 1.001 - 1.025 [place] [employer] [facility].; [employer] Urea nitrogen [Mass/Vol] 16 mg/dL Normal 7 - 25 mg/dL [facility].; [place] [employer] [facility]. Urea nitrogen/Creatinine [Mass ratio] 21.2 mg/mg Normal 6 - 22 [facility].; [place] [employer] [facility] Laboratory - Hematology and Cell countson 05-22-2012 Basophils (Bld) [#/Vol] 20 {Cells}/uL Normal 0 - 200 {Cells}/uL [facility].; [place] [employer] [facility] Basophils/100 WBC (Bld) 0 % Normal 0 - 2 % [facility].; [place] [employer] [facility] Eosinophils (Bld) [#/Vol] 70 {Cells}/uL Normal 15 - 500 {Cells}/uL [facility].; [place] [employer] Eosinophils/100 WBC (Bld) 2 % Normal 0 - 8 % [place] [facility].; [place] [employer] [facility] Erythrocyte distribution width (RBC) [Ratio] 13.2 % Normal 11.0 - 15.0 % [place] [facility].; [employer] Hematocrit (Bld) [Volume fraction] 42.9 % Normal 35.0 - 45.0 % [place] [facility].; [place] [employer] Hemoglobin (Bld) [Mass/Vol] 14.4 g/dL Normal 11.7 - 15.5 g/dL [facility].; [place] [employer], [employer]. Hemoglobin Ql (U) Negative Normal [place] [facility].; [place] [employer] [facility] Lymphocytes (Bld) [#/Vol] 1750 {Cells}/uL Normal 850 - 3900 {Cells}/uL [place] [employer] [facility].; [employer], [employer]. Lymphocytes/100 WBC (Bld) 48 % Normal 15 - 49 % [place] [employer].; [employer], [employer]. MCH (RBC) [Entitic mass] 31.2 pg Normal 27.0 - 33.0 PG [place] [employer] [facility].; [place] [employer], [employer]. MCHC (RBC) [Mass/Vol] 33.5 g/dL Normal 32.0 - 36.0 g/dL [place] [facility].; [place] [employer], [employer]. MCV (RBC) [Entitic vol] 93.1 fL Normal 80.0 - 100.0 fL [place] [employer].; [employer], [employer]. Monocytes (Bld) [#/Vol] 340 {Cells}/uL Normal 200 - 950 {Cells}/uL [place] [employer].; [place] [employer], [employer]. Monocytes/100 WBC (Bld) 9 % Normal 0 - 13 % [place] [employer].; [employer], [employer]. Neutrophils (Bld) [#/Vol] 1450 {Cells}/uL Abnormal 1500 - 7800 {Cells}/uL [place] [employer].; [employer], [employer]. Neutrophils/100 WBC (Bld) 40 % Normal 38 - 80 % [place] [employer].; [employer], [employer]. Platelets (Bld) [#/Vol] 150 10*3/uL Normal 140 - 400 10*3/uL [place] [employer].; [employer], [employer]. RBC (Bld) [#/Vol] 4.61 10*6/uL Normal 3.80 - 5.1 0 10*6/uL [place] [employer].; [employer], [employer]. WBC (Bld) [#/Vol] 3.6 10*3/uL Abnormal 3.8 - 10.8 10*3/uL [employer].; [employer], [employer]. Laboratory - Specimen inform ationon 05-22-2012 Appearance (U) clear Normal [place] [employer], [employer]. Color (U) yellow Normal [employer].; [employer], [employer]. Laboratory - Urinalysison Glucose Test strip (U) [Mass/Vol] Negative Normal [place] [employer] [facility].; [employer], [employer]. Leukocyte esterase Test strip Ql (U) Negative Normal [employer].; [employer], [employer]. Nitrite Ql (U) Negative Normal [employer].; [employer] Protein Ql (U) 30 mg/dL Abnormal [employer] [facility].; [employer], [employer]. No Panel Informationon 05-22 UA - UROBILINOGEN 0.2 mg/dL Normal [employer] [facility].; [employer] [facility]. Laboratoryon 05-02-2012 Lower GI hemoglobin IA Ql (Stl) Not detected Normal [facility]; [facility] Laboratory - Chemistry and C hemistry - challengeon 04-14-2012 Albumin/Creatinine DL <= 20 mg/L (U) [Mass ratio] mg/g Normal [facility]; [facility] Creatinine (U) [Mass/Vol] 50 mg/dL Abnormal [facility]; [facility] Laboratory - Hematology and Cell countson 04-14-2012 HbA1c (Bld) [Mass fraction] 6.3 % Normal 4.6 - 7.1 % [facility]; [place] [facility] Laboratory - Urinalysison Protein Ql (U) 10mg/dL Normal [facility]; [place] [facility] Laboratory - Chemistry and C hemistry - challengeon 04-07-2012 Albumin [Mass/Vol] 4.1 g/dL Normal 3.5 - 5.0 g/dL [facility]; [facility] Albumin/Globulin [Mass ratio] 1.5 {ratio} Normal [facility]; [facility] ALP [Catalytic activity/Vol] 101 U/L Normal 50 - 136 U/L [facility]; [place] [employer] [facility], [facility]. ALT [Catalytic activity/Vol] 18 mmol/L Normal 12 - 49 mmol/L [facility].; [facility]. AST [Catalytic activity/Vol] 24 U/L Normal 15 - 37 U/L [facility].; [place] [facility]. Bilirubin [Mass/Vol] 1.1 mg/dL Abnormal 0.3 - 1 .0 mg/dL [facility]; [place] [facility]. Calcium [Mass/Vol] 9.4 mg/dL Normal 8.4 - 10. 6 mg/dL [facility].; [place] [employer] [facility], [facility]. Chloride [Moles/Vol] 107 mmol/L Normal 98 - 11 0 mmol/L [facility].; [place] [employer] Cholesterol [Mass/Vol] 173 mg/dL Normal 0 - 200 mg/dL [facility].; [facility]. Cholesterol in HDL [Mass/Vol] 49 mg/dL Normal 40 - 60 mg/dL [facility].; [facility], [facility]. Cholesterol in LDL [Mass/Vol] 112 mg/dL Normal 50.0 - 130.0 mg/dL [facility].; [facility], [facility] Cholesterol.total/Cho lesterol in HDL [Mass ratio] 3.5 {ratio} Normal 0 - 5.0 [facility].; [facility], [facility]. CO2 [Moles/Vol] 34.0 {maria fernanda/L} Abnormal 22.0 - 32.0 {maria fernanda/L} [facility].; [facility], [facility]. Creatinine [Mass/Vol] 0.8 mg/dL Normal 0.6 - 1.4 mg/dL [facility].; [facility]. Globulin (S) [Mass/Vol] 2.8 g/dL Normal 1.5 - 3.8 g/dL [facility].; [facility], [facility]. Glucose [Mass/Vol] 143 mg/dL Abnormal 75 - 105 mg/dL [facility].; [facility], [facility]. Potassium [Moles/Vol] 4.8 mmol/L Normal 3.50 - 5.00 meq/L [facility].; [facility], [facility]. Protein [Mass/Vol] 6.9 g/dL Normal 6.4 - 8.2 g/dL [facility].; [facility], [facility]. Sodium [Moles/Vol] 143 mmol/L Normal 136 - 145 mmol/L [facility].; [facility], [facility]. Triglyceride [Mass/Vol] 62 mg/dL Normal 40 - 150 mg/dL [facility].; [facility], [facility]. Urea nitrogen [Mass/Vol] 17 mg/dL Normal 7.0 - 20.0 mg/dL [facility], [facility].; [facility], [facility]. Urea nitrogen/Creatinine [Mass ratio] 21 mg/mg Normal 0 - 30 [facility].; [employer]. Laboratory - Hematology and Cell countson 04-07-2012 HbA1c (Bld) [Mass fraction] 7.0 % Normal 4.6 - 7.1 % [employer].; [employer] No Panel Informationon 04-07 GFR 74 Normal [employer].; [employer]. Laboratory - Chemistry and C hemistry - challengeon 10-14-2011 TSH Qn 1.94 m[IU]/L Normal 0.40 - 4.50 {mIU/L} [employer].; [employer]. Laboratory - Hematology and Cell countson 10-14-2011 HbA1c (Bld) [Mass fraction] 6.0 % Normal 4.6 - 7.1 % [employer].; [employer]. Laboratory - Hematology and Cell countson 07-15-2011 HbA1c (Bld) [Mass fraction] 7.1 % Normal 4.6 - 7.1 % [employer].; [employer]. Laboratoryon 03-22-2011 Lower GI hemoglobin IA Ql (Stl) Not detected Normal [employer]; [employer]. Laboratory - Cytologyon Microscopic observation Cyto stain Nom (Cvx) SEE NOTE Normal [employer].; [employer]. No Panel Informationon 03-15 COMMENT SEE NOTE Normal [employer].; [employer]. Work Phone: Laboratory - Chemistry and C hemistry - challengeon 03-13-2011 Albumin [Mass/Vol] 4.1 g/dL Normal 3.5 - 5.0 g/dL [employer]. Albumin/Globulin [Mass ratio] 1.4 {ratio} Normal [employer].; [employer]. ALP [Catalytic activity/Vol] 121 U/L Normal 50 - 136 U/L [employer].; [employer]. ALT [Catalytic activity/Vol] 22 mmol/L Normal 12 - 49 mmol/L [employer].; [employer]. AST [Catalytic activity/Vol] 25 U/L Normal 15 - 37 U/L [facility].; [facility], [facility]. Bilirubin [Mass/Vol] 1.2 mg/dL Abnormal 0.3 - 1 .0 mg/dL [facility].; [facility], [facility]. Calcium [Mass/Vol] 9.4 mg/dL Normal 8.2 - 10. 2 mg/dL [facility].; [facility]. Chloride [Moles/Vol] 102 mmol/L Normal 98 - 11 0 mmol/L [facility].; [facility], [facility]. Cholesterol [Mass/Vol] 184 mg/dL Normal 0 - 200 mg/dL [facility].; [facility], [facility]. Cholesterol in HDL [Mass/Vol] 62 mg/dL Abnormal 40 - 60 mg/dL [facility].; [facility], [facility]. Cholesterol in LDL [Mass/Vol] 113 mg/dL Abnormal 0 - 100 mg/dL [facility].; [facility]. Cholesterol.total/Cho lesterol in HDL [Mass ratio] 3.0 {ratio} Normal 0 - 5.0 [facility].; [facility]. CO2 [Moles/Vol] 32.0 mmol/L Normal [facility]; [facility], [facility]. Creatinine [Mass/Vol] 0.8 mg/dL Normal 0.6 - 1.4 mg/dL [facility], [facility].; [facility]. Globulin (S) [Mass/Vol] 2.9 g/dL Normal 1.5 - 3.8 g/dL [facility].; [facility], [facility]. Glucose [Mass/Vol] 124 mg/dL Abnormal 75 - 105 mg/dL [facility], [facility].; [facility], [facility]. Potassium [Moles/Vol] 4.0 mmol/L Normal 3.50 - 5.00 meq/L [facility].; [place] [employer] [facility], [facility]. Protein [Mass/Vol] 7.0 g/dL Normal 6.4 - 8.2 g/dL [facility].; [facility], [facility]. Sodium [Moles/Vol] 136 mmol/L Normal 136 - 145 mmol/L [facility].; [facility] Triglyceride [Mass/Vol] 45 mg/dL Normal 0 - 150 mg/dL [facility].; [facility], [facility] Urea nitrogen [Mass/Vol] 14 mg/dL Normal 7.0 - 20.0 mg/dL [facility].; [facility], [facility] Urea nitrogen/Creatinine [Mass ratio] 18 mg/mg Normal 0 - 30 [facility].; [facility]. Laboratory - Hematology and Cell countson 03-13-2011 HbA1c (Bld) [Mass fraction] 7.2 % Abnormal 4.6 - 7.1 % [facility]; [facility], [facility]. Laboratory - Chemistry and C hemistry - challengeon 11-16-2010 Albumin/Creatinine DL <= 20 mg/L (U) [Mass ratio] 30 mg/g Normal [facility]; [facility], [facility] Creatinine (U) [Mass/Vol] 100 mg/dL Abnormal [facility]; [place] [facility]. Laboratory - Hematology and Cell countson 11-16-2010 HbA1c (Bld) [Mass fraction] 6.5 % Normal 4.6 - 7.1 % [facility]; [facility], [facility]. Laboratory - Urinalysison Protein Ql (U) 30 mg/dL Abnormal [facility]; [place] [employer] [facility], [facility] Laboratory - Chemistry and C hemistry - challengeon 09-26-2010 Albumin [Mass/Vol] 4.2 g/dL Normal 3.5 - 5.0 g/dL [facility].; [facility], [facility] Albumin/Globulin [Mass ratio] 1.4 {ratio} Normal [facility]; [facility]. ALP [Catalytic activity/Vol] 103 U/L Normal 50 - 136 U/L [facility].; [facility], [facility]. ALT [Catalytic activity/Vol] 26 mmol/L Normal 12 - 49 mmol/L [facility].; [facility]. AST [Catalytic activity/Vol] 32 U/L Normal 15 - 37 U/L [facility].; [facility]. Bilirubin [Mass/Vol] 1.2 mg/dL Abnormal 0.3 - 1 .0 mg/dL [facility].; [facility], [facility]. Calcium [Mass/Vol] 9.2 mg/dL Normal 8.2 - 10. 2 mg/dL [facility].; [facility]. Chloride [Moles/Vol] 103 mmol/L Normal 98 - 11 0 mmol/L [facility].; [facility], [facility]. Cholesterol [Mass/Vol] 211 mg/dL Abnormal 0 - 200 mg/dL [facility].; [facility], [facility]. Cholesterol in HDL [Mass/Vol] 66 mg/dL Abnormal 40 - 60 mg/dL [facility].; [facility], [facility]. Cholesterol in LDL [Mass/Vol] 129 mg/dL Abnormal 0 - 100 mg/dL [facility].; [facility]. Cholesterol.total/Cho lesterol in HDL [Mass ratio] 3.2 {ratio} Normal 0 - 5.0 [facility].; [facility]. CO2 [Moles/Vol] 29.0 mmol/L Normal [facility]; [facility], [facility]. Creatinine [Mass/Vol] 0.9 mg/dL Normal 0.6 - 1.4 mg/dL [facility].; [place] [facility]. Globulin (S) [Mass/Vol] 2.9 g/dL Normal 1.5 - 3.8 g/dL [facility].; [place] [employer] [facility], [facility]. Glucose [Mass/Vol] 313 mg/dL Abnormal 75 - 105 mg/dL [facility], [facility].; [place] [employer] [facility], [facility]. Potassium [Moles/Vol] 4.7 mmol/L Normal 3.50 - 5.00 meq/L [facility].; [place] [employer] [facility], [facility]. Protein [Mass/Vol] 7.1 g/dL Normal 6.4 - 8.2 g/dL [facility].; [facility], [facility]. Sodium [Moles/Vol] 137 mmol/L Normal 136 - 145 mmol/L [facility]; [facility] Triglyceride [Mass/Vol] 79 mg/dL Normal 0 - 150 mg/dL [facility]; [facility] TSH Qn 3.58 mU/mL Normal 0.35 - 5.5 mU/mL [facility]; [facility] Urea nitrogen [Mass/Vol] 14 mg/dL Normal 7.0 - 20.0 mg/dL [facility]; [facility] Urea nitrogen/Creatinine [Mass ratio] 16 mg/mg Normal 0 - 30 [facility]; [facility] Laboratory - Hematology and Cell countson 09-26-2010 HbA1c (Bld) [Mass fraction] 7.0 % Normal 4.6 - 7.1 % [facility]; [facility] Vital Signs Date Time Vital Sign Value Performing Clinician Facility 06-03-2025 10:33-0400 Body height 161.29 cm Leigha Lomeli PA Work Phone: [facility] 06-03-2025 10:33-0400 Body mass index (BMI) [Ratio] 22.7 kg/m2 Leigha Lomeli PA Work Phone: [facility] 06-03-2025 10:33-0400 Body weight 59.08 kg Leigha Lomeli PA Work Phone: [facility] 06-03-2025 10:33-0400 Diastolic blood pressure 75 mm[Hg] Leigha Lomeli PA Work Phone: [facility] 06-03-2025 10:33-0400 Heart rate 76 /min Leigha Olmeli PA Work Phone: [facility] 06-03-2025 10:33-0400 SaO2% (BldA) [Mass fraction] 98 % Leigha Lomeli PA Work Phone: [facility] 06-03-2025 10:33-0400 Systolic blood pressure 114 mm[Hg] Leigha Lomeli PA Work Phone: [facility] 02-25-2025 09:59-0400 Body mass index (BMI) [Ratio] 22.9 kg/m2 Leigha Lomeli PA Work Phone: [facility] 02-25-2025 09:59-0400 Body weight 59.64 kg Leigha Lomeli PA Work Phone: [facility] 02-25-2025 09:59-0400 Diastolic blood pressure 69 mm[Hg] Leigha Marcialer PA Work Phone: [facility] 02-25-2025 09:59-0400 Systolic blood pressure 104 mm[Hg] Leigha Marcialer PA Work Phone: [facility] 01-01-2025 14:49-0500 Body height 161.29 cm Eva Prince MA [facility] 01-01-2025 14:49-0500 Body mass index (BMI) [Ratio] 23.21 kg/m2 Eva Prince MA [facility] [employer] [facility] 01-01-2025 14:49-0500 Body surface area Derived from formula 1.64 m2 Eva Prince MA [facility] [employer] [facility] 01-01-2025 14:49-0500 Body weight 60.39 kg Eva Prince MA [facility] [employer] 01-01-2025 14:49-0500 Diastolic blood pressure 82 mm[Hg] Eva Prince MA [facility] [employer] Comment on above: Patient Position: Sitting; Cuff Location : Left Arm; Cuff Size: Standard 01-01-2025 14:49-0500 Heart rate 74 /min Eva Prince MA [facility] [employer] Comment on above: Pattern: Regular 01-01-2025 14:49-0500 Systolic blood pressure 121 mm[Hg] Eva Prince MA [facility] [employer] Comment on above: Patient Position: Sitting; Cuff Location : Left Arm; Cuff Size: Standard 08-24-2024 13:27-0400 Body height 161.29 cm Deysi Rivera [facility] 08-24-2024 13:27-0400 Body mass index (BMI) [Ratio] 22.67 kg/m2 Deysi Rivera [facility] [employer] 08-24-2024 13:27-0400 Body surface area Derived from formula 1.62 m2 Deysi Rivera [facility] [place] [employer] 08-24-2024 13:27-0400 Body weight 58.97 kg Deysi Rivera [facility] [place] [employer], [facility]. 08-24-2024 13:27-0400 Diastolic blood pressure 71 mm[Hg] Deysi Guallpa Miguel [facility] [place] [employer] Comment on above: Patient Position: Sitting; Cuff Location : Left Arm; Cuff Size: Standard 08-24-2024 13:27-0400 Heart rate 67 /min Deysi Rivera [facility] [employer] Comment on above: Pattern: Regular 08-24-2024 13:27-0400 Systolic blood pressure 115 mm[Hg] Deysi Rivera [facility] [employer] Comment on above: Patient Position: Sitting; Cuff Location : Left Arm; Cuff Size: Standard 04-10-2024 08:32-0400 Body height 161.29 cm Nora Corcoran [facility] [employer]. 04-10-2024 08:32-0400 Body mass index (BMI) [Ratio] 22.32 kg/m2 Nora Corcoran [facility] [employer] 04-10-2024 08:32-0400 Body surface area Derived from formula 1.61 m2 Nora Corcoran [employer] [place] [employer] [facility] [employer], [employer]. 04-10-2024 08:32-0400 Body weight 58.06 kg Nora Corcoran [employer] [facility] [employer] [facility] 04-10-2024 08:32-0400 Diastolic blood pressure 86 mm[Hg] Nora Corcoran KRISTINA [facility] [employer], [employer]. Comment on above: Patient Position: Sitting; Cuff Location : Left Arm; Cuff Size: Large 04-10-2024 08:32-0400 Heart rate 76 /min Nora Corcoran KRISTINA [facility], Inc.; [employer] Comment on above: Pattern: Regular 04-10-2024 08:32-0400 Systolic blood pressure 131 mm[Hg] Nora Corcroan METAL [employer]URNITURE GLAZIER [place] [facility], Inc.; [employer], [employer]. Comment on above: Patient Position: Sitting; Cuff Location : Left Arm; Cuff Size: Large 07-13-2023 13:19-0400 Body height 161.29 cm Deysi Rivera METAL FURNITURE GLAZIER [facility], Inc.; [employer] 07-13-2023 13:19-0400 Body mass index (BMI) [Ratio] 21.78 kg/m2 Deysi Rivera [facility], Inc.; [employer] 07-13-2023 13:19-0400 Body surface area Derived from formula 1.59 m2 Deysi Rivera MET[employer]URNITURE GLAZIER [facility], [facility].; [employer], [employer]. 07-13-2023 13:19-0400 Body weight 56.65 kg Deysi Rivera MET[employer]URN[employer]URE GLA[employer]IER [place] [facility], Inc.; [employer] 07-13-2023 13:19-0400 Diastolic blood pressure 61 mm[Hg] Deysi Rivera [facility], Inc.; [employer], [employer]. Comment on above: Patient Position: Sitting; Cuff Location : Left Arm; Cuff Size: Standard 07-13-2023 13:19-0400 Heart rate 81 /min Deysi Rivera LPN [place] [facility], Inc.; [employer], [employer]. Comment on above: Pattern: Regular 07-13-2023 13:19-0400 Systolic blood pressure 92 mm[Hg] Deysi Rivera LPN [facility], Inc.; [facility], [facility]. Comment on above: Patient Position: Sitting; Cuff Location : Left Arm; Cuff Size: Standard 07-12-2023 13:43-0400 Diastolic blood pressure 61 mm[Hg] PA Leigha Lomeli PA Work Phone: [facility] 07-12-2023 13:43-0400 Heart rate 61 /min PA Leigha Lomeli PA Work Phone: [facility] 07-12-2023 13:43-0400 Systolic blood pressure 100 mm[Hg] PA Leigha Lomeli PA Work Phone: [phone] [place] [address] 07-12-2023 13:09-0400 Body height 161.29 cm PA Leigha Lomeli PA Work Phone: [phone](266)[phone] [place] [address] 07-12-2023 13:09-0400 Body mass index (BMI) [Ratio] 21.9 kg/m2 PA Leigha Lomeli PA Work Phone: [facility] 07-12-2023 13:09-0400 Body temperature 97.8 [degF] PA Leigha Lomeli PA Work Phone: [facility] 07-12-2023 13:09-0400 Body weight 57.15 kg PA Leigha Lomeli PA Work Phone: [facility] 07-12-2023 13:09-0400 Respiratory rate 16 /min PA Leigha Lomeli PA Work Phone: [facility] 07-12-2023 13:09-0400 SaO2% (BldA) [Mass fraction] 99 % PA Leigha Lomeli PA Work Phone: [facility] 05-12-2023 11:07-0400 Body mass index (BMI) [Ratio] 21.9 kg/m2 PA Leigha Lomeli PA Work Phone: [facility] 05-12-2023 11:07-0400 Body temperature 98.2 [degF] PA Leigha Lomeli PA Work Phone: [facility] 05-12-2023 11:07-0400 Body weight 57.15 kg PA Leigha Lomeli PA Work Phone: [facility] 05-12-2023 11:07-0400 Diastolic blood pressure 72 mm[Hg] PA Leigha Lomeli PA Work Phone: [facility] 05-12-2023 11:07-0400 Heart rate 52 /min PA Leigha Lomeli PA Work Phone: [facility] 05-12-2023 11:07-0400 Respiratory rate 16 /min PA Leigha Lomeli PA Work Phone: [facility] 05-12-2023 11:07-0400 SaO2% (BldA) [Mass fraction] 94 % PA Leigha Lomeli PA Work Phone: [facility] 05-12-2023 11:07-0400 Systolic blood pressure 116 mm[Hg] PA Leigha Lomeli PA Work Phone: [facility] 02-08-2023 10:12-0400 Body height 161.29 cm PA Leigha Lomeli PA Work Phone: [phone](334)[phone] [place] [address] 02-08-2023 10:12-0400 Body mass index (BMI) [Ratio] 21.7 kg/m2 PA Leigha Lomeli PA Work Phone: [facility] 02-08-2023 10:12-0400 Body temperature 98.6 [degF] PA Leigha Lomeli PA Work Phone: [facility] 02-08-2023 10:12-0400 Body weight 56.47 kg PA Leigha Lomeli PA Work Phone: [facility] 02-08-2023 10:12-0400 Diastolic blood pressure 71 mm[Hg] PA Leigha Lomeli PA Work Phone: [facility] 02-08-2023 10:12-0400 Respiratory rate 18 /min PA Leigha Lomeli PA Work Phone: [facility] 03-28-2023 10:12-0400 Systolic blood pressure 107 mm[Hg] PA Leigha Lomeli PA Work Phone: [facility] 11-11-2022 11:15-0500 Body mass index (BMI) [Ratio] 22.6 kg/m2 PA Leigha Lomeli PA Work Phone: [facility] 11-11-2022 11:15-0500 Body temperature 97.1 [degF] PA Leigha Lomeli PA Work Phone: [facility] 11-11-2022 11:15-0500 Body weight 58.96 kg PA Leigha Lomeli PA Work Phone: [facility] 11-11-2022 11:15-0500 Diastolic blood pressure 78 mm[Hg] PA Leigha Lomeli PA Work Phone: [facility] 11-11-2022 11:15-0500 Heart rate 74 /min PA Leigha Lomeli PA Work Phone: [facility] 11-11-2022 11:15-0500 Respiratory rate 16 /min PA Leigha Lomeli PA Work Phone: [facility] 11-11-2022 11:15-0500 SaO2% (BldA) [Mass fraction] 95 % PA Leigha Lomeli PA Work Phone: [facility] 11-11-2022 11:15-0500 Systolic blood pressure 126 mm[Hg] PA Leigha Lomeli PA Work Phone: [facility] 06-29-2022 15:25-0400 Body temperature 98.8 [degF] PA Leigha Lomeli PA Work Phone: [facility] Work Phone: 06-29-2022 15:25-0400 Diastolic blood pressure 63 mm[Hg] PA Leigha Lomeli PA Work Phone: [facility] Work Phone: 06-29-2022 15:25-0400 Heart rate 63 /min PA Leigha Lomeli PA Work Phone: [facility] Work Phone: 06-29-2022 15:25-0400 Respiratory rate 16 /min PA Leigha Lomeli PA Work Phone: [facility] Work Phone: 06-29-2022 15:25-0400 SaO2% (BldA) [Mass fraction] 96 % PA Leigha Lomeli PA Work Phone: [facility] Work Phone: 06-29-2022 15:25-0400 Systolic blood pressure 110 mm[Hg] PA Leigha Lomeli PA Work Phone: [facility] Work Phone: 06-29-2022 14:50-0400 Body height 161.29 cm PA Leigha Lomeli PA Work Phone: [facility] Work Phone: 06-29-2022 14:50-0400 Body mass index (BMI) [Ratio] 21.1 kg/m2 PA Leigha Lomeli PA Work Phone: [facility] Work Phone: 06-29-2022 14:50-0400 Body weight 54.88 kg PA Leigha Lomeli PA Work Phone: [facility] Work Phone: 06-28-2022 14:13-0400 Body height 161.29 cm Deysi Rivera LPN [facility], [facility].; [facility], [facility]. 06-28-2022 14:13-0400 Body mass index (BMI) [Ratio] 21.27 kg/m2 Deysi Rivera LPN [facility], [facility].; [facility], [facility]. 06-28-2022 14:13-0400 Body surface area Derived from formula 1.58 m2 Deysi Rivera LPN [facility], [facility].; [facility], [facility]. 06-28-2022 14:13-0400 Body weight 55.34 kg Deysi Rivera LPN [facility], [facility].; [facility], [facility]. 06-28-2022 14:13-0400 Diastolic blood pressure 70 mm[Hg] Deysi Guallpa Miguel [facility].; [facility], [facility]. Comment on above: Patient Position: Sitting; Cuff Location : Right Arm; Cuff Size: Standard 06-28-2022 14:13-0400 Heart rate 77 /min Deysimikki Rivera [facility], [facility].; [facility], [facility]. Comment on above: Pattern: Regular 06-28-2022 14:13-0400 Systolic blood pressure 111 mm[Hg] Deysi Saloni Rivera [facility], [facility].; [facility], [facility]. Comment on above: Patient Position: Sitting; Cuff Location : Right Arm; Cuff Size: Standard 05-13-2022 15:06-0400 Body mass index (BMI) [Ratio] 21.2 kg/m2 PA Leigha Lomeli PA Work Phone: [facility] Work Phone: 05-13-2022 15:06-0400 Body temperature 95.9 [degF] PA Leigha Lomeli PA Work Phone: [facility] Work Phone: 05-13-2022 15:06-0400 Body weight 56.24 kg PA Leigha Lomeli PA Work Phone: [facility] Work Phone: 05-13-2022 15:06-0400 Diastolic blood pressure 70 mm[Hg] PA Leigha Lomeli PA Work Phone: [facility] Work Phone: 05-13-2022 15:06-0400 Heart rate 73 /min PA Leigha Lomeli PA Work Phone: [facility] Work Phone: 05-13-2022 15:06-0400 Respiratory rate 18 /min PA Leigha Lomeli PA Work Phone: [facility] Work Phone: 05-13-2022 15:06-0400 SaO2% (BldA) [Mass fraction] 98 % PA Leigha Lomeli PA Work Phone: [facility] Work Phone: 05-13-2022 15:06-0400 Systolic blood pressure 120 mm[Hg] PA Leigha Lomeli PA Work Phone: [facility] Work Phone: 02-11-2022 15:18-0400 Body height 162.56 cm PA Leigha Lomeli PA Work Phone: [facility] Work Phone: 02-11-2022 15:18-0400 Body mass index (BMI) [Ratio] 20.6 kg/m2 PA Leigha Lomeli PA Work Phone: [facility] Work Phone: 02-11-2022 15:18-0400 Body temperature 97.3 [degF] PA Leigha Lomeli PA Work Phone: [facility] Work Phone: 02-11-2022 15:18-0400 Body weight 54.6 kg PA Leigha Lomeli PA Work Phone: [facility] Work Phone: 02-11-2022 15:18-0400 Diastolic blood pressure 70 mm[Hg] PA Leigha Lomeli PA Work Phone: [facility] Work Phone: 02-11-2022 15:18-0400 Heart rate 78 /min PA Leigha Lomeli PA Work Phone: [facility] Work Phone: 02-11-2022 15:18-0400 Respiratory rate 18 /min PA Leigha Lomeli PA Work Phone: [facility] Work Phone: 02-11-2022 15:18-0400 SaO2% (BldA) [Mass fraction] 95 % PA Leigha Lomeli PA Work Phone: [facility] Work Phone: 02-11-2022 15:18-0400 Systolic blood pressure 110 mm[Hg] PA Leigha Lomeli PA Work Phone: [facility] Work Phone: 12-15-2021 09:09-0500 Body mass index (BMI) [Ratio] 20.4 kg/m2 PA Leigha Lomeli PA Work Phone: [facility] Work Phone: 12-15-2021 09:09-0500 Body temperature 96.5 [degF] PA Eligha Lomeli PA Work Phone: [facility] Work Phone: 12-15-2021 09:09-0500 Body weight 53.97 kg PA Leigha Lomeli PA Work Phone: [facility] Work Phone: 12-15-2021 09:09-0500 Diastolic blood pressure 82 mm[Hg] PA Leigha Lomeli PA Work Phone: [facility] Work Phone: 12-15-2021 09:09-0500 Respiratory rate 18 /min PA Leigha Lomeli PA Work Phone: [facility] Work Phone: 12-15-2021 09:09-0500 Systolic blood pressure 122 mm[Hg] PA Leigha Lomeli PA Work Phone: [facility] Work Phone: 07-17-2021 08:14-0400 Body height 161.29 cm Deysi Rivera LPN [facility], [facility].; [facility], [facility]. 07-17-2021 08:14-0400 Body mass index (BMI) [Ratio] 22.49 kg/m2 Deysi Rivera LPN [facility], [facility].; [facility], [facility] 07-17-2021 08:14-0400 Body surface area Derived from formula 1.61 m2 Deysi Caceresrand ACEVEDO [facility], Inc.; [employer] 07-17-2021 08:14-0400 Body weight 58.51 kg Deysi Caceresach METAL FURNITURE GLAZIER [facility], Inc.; [employer], [employer] 07-17-2021 08:14-0400 Diastolic blood pressure 73 mm[Hg] Deysi Rivera [facility], Inc.; [employer]. Comment on above: Patient Position: Sitting; Cuff Location : Left Arm; Cuff Size: Standard 07-17-2021 08:14-0400 Heart rate 66 /min Deysi Rivera [facility], Inc.; [employer], [employer]. Comment on above: Pattern: Regular 07-17-2021 08:14-0400 Systolic blood pressure 111 mm[Hg] Deysi Rivera [facility], Inc.; [employer]. Comment on above: Patient Position: Sitting; Cuff Location : Left Arm; Cuff Size: Standard 11-26-2020 13:40-0500 Body height 161.29 cm Deysi Rivera MET[employer] FURNITURE GLAZIER [facility], Inc.; [employer] 11-26-2020 13:40-0500 Body mass index (BMI) [Ratio] 22.14 kg/m2 Deysi Caceresach METAL FURNITURE GLAZIER [facility], Inc.; [employer], [employer] 11-26-2020 13:40-0500 Body surface area Derived from formula 1.6 m2 Deysi Silvalabach METAL FURNITURE GLAZIER [facility], Inc.; [employer] 11-26-2020 13:40-0500 Body temperature 99.4 [degF] Deysi Rivera [facility] [employer].; [employer]. Comment on above: Method: Tympanic 11-26-2020 13:40-0500 Body weight 57.61 kg Deysi Silvamelani ACEVEDO [place] [facility], Inc.; [employer] 11-26-2020 13:40-0500 Diastolic blood pressure 74 mm[Hg] Deysi Guallpa Miguel METAL FURNITURE GLAZIER [place] [employer]. Comment on above: Patient Position: Sitting; Cuff Location : Left Arm; Cuff Size: Standard 11-26-2020 13:40-0500 Heart rate 91 /min Deysi Rivera [facility]. Comment on above: Pattern: Regular 11-26-2020 13:40-0500 Systolic blood pressure 110 mm[Hg] Deysi [facility] LPN [facility].; [employer]. Comment on above: Patient Position: Sitting; Cuff Location : Left Arm; Cuff Size: Standard 12-05-2019 09:25-0500 Body weight 63.05 kg Leigha Lomeli PA-C Work Phone: [place] [employer]. 12-05-2019 09:25-0500 Diastolic blood pressure 78 mm[Hg] Leigha Lomeli PA-C Work Phone: [place] [employer]. Comment on above: Patient Position: Sitting; Cuff Location : Left Arm; Cuff Size: Standard 12-05-2019 09:25-0500 Heart rate 80 /min Leigha Lomeli PA-C Work Phone: [place] [employer]. Comment on above: Pattern: Regular 12-05-2019 09:25-0500 Systolic blood pressure 117 mm[Hg] Leigha Lomeli PA-C Work Phone: [facility] [employer]. Comment on above: Patient Position: Sitting; Cuff Location : Left Arm; Cuff Size: Standard 11-17-2018 15:10-0500 Body height 161.29 cm Ally Aguilar LPN [place] [facility] [employer].; [employer]. 11-17-2018 15:10-0500 Body mass index (BMI) [Ratio] 22.32 kg/m2 Ally Aguilar LPN [place] [facility] [employer].; [place] [employer] 11-17-2018 15:10-0500 Body surface area Derived from formula 1.61 m2 Ally Forbesjorgito ACEVEDO [place] [facility], Inc.; [employer] 11-17-2018 15:10-0500 Body temperature 99.1 [degF] Ally Martinezwanda [facility], Inc.; [employer], [employer] Comment on above: Method: Tympanic 11-17-2018 [id number]:100500 Body weight 58.06 kg Ally Forbesjorgito [facility], Inc.; [employer], [employer] 11-17-2018 15:10-0500 Diastolic blood pressure 71 mm[Hg] Ally Forbesjorgito [facility], Inc.; [employer], [employer]. Comment on above: Patient Position: Sitting; Cuff Location : Left Arm; Cuff Size: Standard 11-17-2018 15:10-0500 Heart rate 88 /min Ally Forbesjorgito [facility], Inc.; [employer] Comment on above: Pattern: Regular 11-17-2018 15:10-0500 Inhaled oxygen concentration 20 % Ally Forbesjorgito [facility], Inc.; [employer]. Comment on above: Room air 11-17-2018 15:10-0500 Inhaled oxygen concentration 21 % Ally Forbesjorgito [facility], Inc.; [employer], [employer] Comment on above: Room air 11-17-2018 15:10-0500 SaO2% (BldA) [Mass fraction] 96 % Ally Forbesjorgito [facility], Inc.; [employer], [employer] 11-17-2018 15:10-0500 Systolic blood pressure 101 mm[Hg] Ally Forbesjorgito [facility] [employer], [employer].; [employer]. Comment on above: Patient Position: Sitting; Cuff Location : Left Arm; Cuff Size: Standard 10-10-2018 11:28-0500 Body height 161.29 cm Mary Jo Benitez MET[employer] FURNITURE GLAZIER [place] [facility], Inc.; [employer] 10-10-2018 11:28-0500 Body mass index (BMI) [Ratio] 22.49 kg/m2 Mary Josa Anna Shannonbaugh METAL FURNITURE GLAZIER [place] [employer] 10-10-2018 11:28-0500 Body surface area Derived from formula 1.61 m2 Mary Jo Anna Shannonbaugh METAL FURNITURE GLAZIER [place] [facility], Inc.; [employer] 10-10-2018 11:28-0500 Body temperature 99.1 [degF] Mary Jo Anna Shannonbaugh METAL FURNITURE GLAZIER [place] [employer].; [employer] 10-10-2018 11:28-0500 Body weight 58.51 kg Mary Jo Anna Shannonbaugh METAL FURNITURE GLAZIER [place] [employer].; [employer] 10-10-2018 11:28-0500 Diastolic blood pressure 82 mm[Hg] Mary Jo Anna Shannonbaugh METAL FURNITURE GLAZIER [place] [facility], Inc.; [employer], [employer]. Comment on above: Patient Position: Sitting; Cuff Location : Left Arm; Cuff Size: Standard 10-10-2018 11:28-0500 Heart rate 120 /min Mary Jo Anna Shannonbaugh METAL FURNITURE GLAZIER [place] [facility], Inc.; [employer], [employer]. Comment on above: Pattern: Regular 10-10-2018 11:28-0500 Systolic blood pressure 126 mm[Hg] Mary Jo Anna Shannonbaugh METAL FURNITURE GLAZIER [place] [employer], [employer]. Comment on above: Patient Position: Sitting; Cuff Location : Left Arm; Cuff Size: Standard 04-13-2018 14:05-0400 Body height 161.29 cm Ally Aguilar LPN [facility], Inc.; [employer] 04-13-2018 14:05-0400 Body mass index (BMI) [Ratio] 21.47 kg/m2 Ally Aguilar LPN [place] [employer].; [employer] 04-13-2018 14:05-0400 Body surface area Derived from formula 1.58 m2 Ally Aguilar LPN [place] [employer] 04-13-2018 14:05-0400 Body weight 55.85 kg Ally Aguilar LPN [place] [employer]. 04-13-2018 14:05-0400 Diastolic blood pressure 66 mm[Hg] Ally Forbesjorgito ACEVEDO [place] [facility], Inc.; [employer]. Comment on above: Patient Position: Sitting; Cuff Location : Left Arm; Cuff Size: Standard 04-13-2018 14:05-0400 Heart rate 70 /min Ally Lauren ACEVEDO [place] [facility], Inc.; [employer]. Comment on above: Pattern: Regular 04-13-2018 14:05-0400 Systolic blood pressure 99 mm[Hg] Ally Lauren ACEVEDO [place] [facility], Inc.; [employer]. Comment on above: Patient Position: Sitting; Cuff Location : Left Arm; Cuff Size: Standard 08-17-2017 13:53-0400 Body height 161.29 cm Juani Mckoy LPN [place] [facility], Inc.; [employer], [employer]. 08-17-2017 13:53-0400 Body mass index (BMI) [Ratio] 21.45 kg/m2 Juani Mckoy LPN [place] [facility], Inc.; [employer], [employer]. 08-17-2017 13:53-0400 Body surface area Derived from formula 1.58 m2 Juani Mckoy LPN [place] [facility], Inc.; [employer], [employer]. 08-17-2017 13:53-0400 Body temperature 98.6 [degF] Juani Mckoy LPN [place] [employer], [employer]. 08-17-2017 13:53-0400 Body weight 55.79 kg Juani Mckoy LPN [place] [facility], Inc.; [employer], [employer]. 08-17-2017 13:53-0400 Diastolic blood pressure 65 mm[Hg] Juani Mckoy LPN [place] [facility], Inc.; [employer], [employer]. Comment on above: Patient Position: Sitting; Cuff Location : Left Arm; Cuff Size: Standard 08-17-2017 13:53-0400 Heart rate 73 /min Juani Mckoy LPN [place] [facility], Inc.; [employer], [employer]. Comment on above: Pattern: Regular 08-17-2017 13:53-0400 Systolic blood pressure 96 mm[Hg] Juani Mckoy LPN [facility], Inc.; [place] [facility], [employer]. Comment on above: Patient Position: Sitting; Cuff Location : Left Arm; Cuff Size: Standard 09-22-2016 13:44-0500 Body height 160.02 cm Maryj O Anna Shannonbaugh METAL FURNITURE GLAZIER [facility], Inc.; [employer] 09-22-2016 13:44-0500 Body mass index (BMI) [Ratio] 24.45 kg/m2 Mary Jo Anna Shannonbaugh METAL FURNITURE GLAZIER [facility], [facility].; [employer] 09-22-2016 13:44-0500 Body surface area Derived from formula 1.65 m2 Mary Jo Anna Shannonbaugh METAL FURNITURE GLAZIER [facility], [facility].; [place] [employer], [facility]. 09-22-2016 13:44-0500 Body weight 62.6 kg Mary Jo Anna Shannonbaugh METAL FURNITURE GLAZIER [facility], [facility].; [place] [employer], [facility]. 09-22-2016 13:44-0500 Diastolic blood pressure 67 mm[Hg] Mary Jo Anna Shannonbaugh METAL FURNITURE GLAZIER [facility], [facility].; [employer], [employer]. Comment on above: Patient Position: Sitting; Cuff Location : Left Arm; Cuff Size: Standard 09-22-2016 13:44-0500 Heart rate 80 /min Mary Jo Anna Shannonbaugh METAL FURNITURE GLAZIER [facility], [facility].; [employer] Comment on above: Pattern: Regular 09-22-2016 13:44-0500 Systolic blood pressure 109 mm[Hg] Mary Jo Anna Mutersbaugh METAL FURNITURE GLAZIER [facility], [facility].; [employer], [employer]. Comment on above: Patient Position: Sitting; Cuff Location : Left Arm; Cuff Size: Standard 05-11-2016 14:23-0400 Body height 160.02 cm [facility] Work Phone: [place] [facility], [employer].; [employer], [employer]. 05-11-2016 14:23-0400 Body mass index (BMI) [Ratio] 23.91 kg/m2 [facility] Work Phone: [place] [facility], [employer].; [employer]. 05-11-2016 14:23-0400 Body surface area Derived from formula 1.64 m2 Jessy Bertin LPN Work Phone: [employer].; [employer]. 05-11-2016 14:23-0400 Body weight 61.24 kg Jessy Denton LPN Work Phone: [employer].; [employer]. 05-11-2016 14:23-0400 Diastolic blood pressure 71 mm[Hg] Jessy Denton LPN Work Phone: [employer].; [employer]. Comment on above: Patient Position: Sitting; Cuff Location : Left Arm; Cuff Size: Standard 05-11-2016 14:23-0400 Heart rate 70 /min Jessy Bertin LPN Work Phone: [employer]; [employer]. Comment on above: Pattern: Regular 05-11-2016 14:23-0400 Systolic blood pressure 108 mm[Hg] Jessy Denton LPN Work Phone: [employer].; [employer]. Comment on above: Patient Position: Sitting; Cuff Location : Left Arm; Cuff Size: Standard 10-27-2015 14:24-0500 Body height 163.19 cm Caroline Bang RN [employer].; [employer]. 10-27-2015 14:24-0500 Body mass index (BMI) [Ratio] 22.82 kg/m2 Caroline Bang RN [employer].; [employer]. 10-27-2015 14:24-0500 Body surface area Derived from formula 1.65 m2 Caroline Bang RN [employer].; [employer]. 10-27-2015 14:24-0500 Body weight 60.78 kg Caroline Bang RN [employer].; [employer]. 10-27-2015 14:24-0500 Diastolic blood pressure 66 mm[Hg] Caroline Bang RN [employer].; [employer]. Comment on above: Patient Position: Sitting; Cuff Location : Left Arm; Cuff Size: Standard 10-27-2015 14:24-0500 Heart rate 78 /min Caroline Bang RN [facility] [employer]. Comment on above: Pattern: Regular 10-27-2015 14:24-0500 Systolic blood pressure 104 mm[Hg] Caroline Bang RN [facility] [facility] [employer]. Comment on above: Patient Position: Sitting; Cuff Location : Left Arm; Cuff Size: Standard 05-06-2015 10:05-0400 Body weight 59.88 kg Caroline Bang RN [employer].; [employer]. 05-06-2015 10:05-0400 Diastolic blood pressure 78 mm[Hg] Caroline Bang RN [employer] [facility] [employer]. Comment on above: Patient Position: Sitting; Cuff Location : Left Arm; Cuff Size: Standard 05-06-2015 10:05-0400 Heart rate 86 /min Caroline Bang RN [employer].; [employer]. Comment on above: Pattern: Regular 05-06-2015 10:05-0400 Inhaled oxygen concentration 20 % Caroline Bang RN [place] [employer]. Comment on above: Room air 05-06-2015 10:05-0400 Inhaled oxygen concentration 21 % Caroline Bang RN [employer]. Comment on above: Room air 05-06-2015 10:05-0400 SaO2% (BldA) [Mass fraction] 93 % Caroline Bang RN [employer]. 05-06-2015 10:05-0400 Systolic blood pressure 116 mm[Hg] Caroline Bang RN [employer]. Comment on above: Patient Position: Sitting; Cuff Location : Left Arm; Cuff Size: Standard 04-25-2015 08:32-0400 Body height 163.19 cm Caroline [email or web address].; [place] [email or web address]. 04-25-2015 08:32-0400 Body mass index (BMI) [Ratio] 22.83 kg/m2 Caroline Bang [email or web address].; [facility] 04-25-2015 08:32-0400 Body surface area Derived from formula 1.66 m2 Caroline Bang RN [email or web address].; [place] [email or web address]. 04-25-2015 08:32-0400 Body weight 60.81 kg Caroline Bang RN [email or web address].; [place] [facility], [facility]. 04-25-2015 08:32-0400 Diastolic blood pressure 75 mm[Hg] Caroline Bang RN [email or web address].; [place] [facility]. Comment on above: Patient Position: Sitting; Cuff Location : Left Arm; Cuff Size: Standard 04-25-2015 08:32-0400 Heart rate 72 /min Caroline Bang RN [email or web address].; [employer]. Comment on above: Pattern: Regular 04-25-2015 08:32-0400 Systolic blood pressure 106 mm[Hg] Caroline Bang RN [place] [email or web address].; [place] [facility]. Comment on above: Patient Position: Sitting; Cuff Location : Left Arm; Cuff Size: Standard 10-25-2014 10:03-0500 Body height 161.29 cm Ivania Vail RN Work Phone: [place] [email or web address].; [employer]. 10-25-2014 10:03-0500 Body mass index (BMI) [Ratio] 23.36 kg/m2 Ivania Vail RN Work Phone: [place] [employer].; [employer]. 10-25-2014 10:03-0500 Body surface area Derived from formula 1.64 m2 Ivania Vail RN Work Phone: [place] [employer]. 10-25-2014 10:03-0500 Body weight 60.78 kg Ivania Vail RN Work Phone: [place] [employer]. 10-25-2014 10:03-0500 Diastolic blood pressure 70 mm[Hg] Ivania Vail RN Work Phone: [place] [employer]. Comment on above: Patient Position: Sitting; Cuff Location : Left Arm; Cuff Size: Large 10-25-2014 10:03-0500 Heart rate 71 /min Ivania Vail RN Work Phone: [employer]. Comment on above: Pattern: Regular 10-25-2014 10:03-0500 Systolic blood pressure 102 mm[Hg] Ivania Vail RN Work Phone: [employer]. Comment on above: Patient Position: Sitting; Cuff Location : Left Arm; Cuff Size: Large 04-26-2014 09:59-0400 Body height 161.29 cm Ivania Vail RN Work Phone: [employer]. 04-26-2014 09:59-0400 Body mass index (BMI) [Ratio] 23.02 kg/m2 Ivania Vail RN Work Phone: [employer]. 04-26-2014 09:59-0400 Body surface area Derived from formula 1.63 m2 Ivania Vail RN Work Phone: [employer]. 04-26-2014 09:59-0400 Body weight 59.88 kg Ivania Vail RN Work Phone: [employer] 04-26-2014 09:59-0400 Diastolic blood pressure 74 mm[Hg] Ivania Vail RN Work Phone: [employer]. Comment on above: Patient Position: Sitting; Cuff Location : Left Arm; Cuff Size: Standard 04-26-2014 09:59-0400 Heart rate 71 /min Ivania Vail RN Work Phone: [employer]. Comment on above: Pattern: Regular 04-26-2014 09:59-0400 Systolic blood pressure 109 mm[Hg] Ivania Vail RN Work Phone: [employer]. Comment on above: Patient Position: Sitting; Cuff Location : Left Arm; Cuff Size: Standard 10-26-2013 10:58-0500 Body height 161.29 cm Deysi Kathleen MD Work Phone: [employer]. 10-26-2013 10:58-0500 Body mass index (BMI) [Ratio] 23.36 kg/m2 Deysi Kathleen MD Work Phone: [employer]. 10-26-2013 10:58-0500 Body surface area Derived from formula 1.64 m2 Deysi Kathleen MD Work Phone: [employer]. 10-26-2013 10:58-0500 Body weight 60.78 kg Deysi Kathleen MD Work Phone: [employer]. 10-26-2013 10:58-0500 Diastolic blood pressure 68 mm[Hg] Deysi Kathleen MD Work Phone: [employer]. Comment on above: Patient Position: Sitting; Cuff Location : Left Arm; Cuff Size: Standard 10-26-2013 10:58-0500 Heart rate 68 /min Deysi Kathleen MD Work Phone: [employer]; [employer]. Comment on above: Pattern: Regular 10-26-2013 10:58-0500 Systolic blood pressure 105 mm[Hg] Deysi Kathleen MD Work Phone: [employer]; [employer]. Comment on above: Patient Position: Sitting; Cuff Location : Left Arm; Cuff Size: Standard 07-20-2013 10:32-0400 Body height 161.29 cm Ivania Vail RN Work Phone: [place] [employer]. 07-20-2013 10:32-0400 Body mass index (BMI) [Ratio] 23.71 kg/m2 Ivania Vail RN Work Phone: [employer] 07-20-2013 10:32-0400 Body surface area Derived from formula 1.65 m2 Ivania Vail RN Work Phone: [employer].; [employer] 07-20-2013 10:32-0400 Body weight 61.69 kg Ivania Vail RN Work Phone: [employer]. 07-20-2013 10:32-0400 Diastolic blood pressure 69 mm[Hg] Ivania Vail RN Work Phone: [employer]. Comment on above: Patient Position: Sitting; Cuff Location : Right Arm; Cuff Size: Standard 07-20-2013 10:32-0400 Heart rate 69 /min Ivania Vail RN Work Phone: [employer]. Comment on above: Pattern: Regular 07-20-2013 10:32-0400 Systolic blood pressure 106 mm[Hg] Ivania Vail RN Work Phone: [employer]. Comment on above: Patient Position: Sitting; Cuff Location : Right Arm; Cuff Size: Standard 02-08-2013 12:51-0400 Body height 161.29 cm Ally Aguilar LPN [employer] 02-08-2013 12:51-0400 Body mass index (BMI) [Ratio] 23.76 kg/m2 Ally Aguilar LPN [employer].; [employer] 02-08-2013 12:51-0400 Body surface area Derived from formula 1.65 m2 Ally Wejorgito ACEVEDO [place] [facility] [employer]. 02-08-2013 12:51-0400 Body temperature 98 [degF] Ally [facility]orgito [facility], [facility].; [employer]. Comment on above: Method: Tympanic 02-08-2013 12:51-0400 Body weight 61.8 kg Ally Lauren [facility] [employer] 02-08-2013 12:51-0400 Diastolic blood pressure 76 mm[Hg] Ally Forbesjorgito [facility], [facility].; [employer], [employer]. Comment on above: Patient Position: Sitting; Cuff Location : Left Arm; Cuff Size: Standard 02-08-2013 12:51-0400 Heart rate 71 /min Allynorma gAuilar LPH[facility], [facility].; [employer]. Comment on above: Pattern: Regular 02-08-2013 12:51-0400 Systolic blood pressure 112 mm[Hg] Ally Forbesjorgito ACEVEDO [place] [facility], [facility].; [employer]. Comment on above: Patient Position: Sitting; Cuff Location : Left Arm; Cuff Size: Standard 10-20-2012 10:20-0500 Body height 161.29 cm Deysi Rivera LPN [facility], [facility].; [employer]. 10-20-2012 10:20-0500 Body mass index (BMI) [Ratio] 23.54 kg/m2 Deysi Rivera [employer] [place] [facility], [facility].; [employer]. 10-20-2012 10:20-0500 Body surface area Derived from formula 1.65 m2 Deysi Rivera [employer] [place] [facility], [facility].; [employer]. 10-20-2012 10:20-0500 Body weight 61.24 kg Deysi Rivera [employer] [place] [facility], [facility].; [employer]. 10-20-2012 10:20-0500 Diastolic blood pressure 67 mm[Hg] Deysi Rivera LPN [place] [email or web address].; [employer]. Comment on above: Patient Position: Sitting; Cuff Location : Left Arm; Cuff Size: Standard 10-20-2012 10:20-0500 Heart rate 55 /min Deysi Rivera LPN [place] [employer]. Comment on above: Pattern: Regular 10-20-2012 10:20-0500 Systolic blood pressure 117 mm[Hg] Deysi Rivera LPN [employer]. Comment on above: Patient Position: Sitting; Cuff Location : Left Arm; Cuff Size: Standard 05-22-2012 14:27-0400 Body height 161.29 cm Ivania Vail RN Work Phone: [employer]. 05-22-2012 14:27-0400 Body mass index (BMI) [Ratio] 21.8 kg/m2 Ivania Vail RN Work Phone: [employer]. 05-22-2012 14:27-0400 Body surface area Derived from formula 1.59 m2 Ivania Vail RN Work Phone: [employer]. 05-22-2012 14:27-0400 Body temperature 98.3 [degF] Ivania Vail RN Work Phone: [employer].; [employer]. Comment on above: Method: Tympanic 05-22-2012 14:27-0400 Body weight 56.7 kg Ivania Vail RN Work Phone: [employer]. 05-22-2012 14:27-0400 Diastolic blood pressure 74 mm[Hg] Ivania Vail RN Work Phone: [employer].; [employer]. Comment on above: Patient Position: Sitting; Cuff Location : Right Arm; Cuff Size: Standard 05-22-2012 14:27-0400 Heart rate 80 /min Ivania Vail RN Work Phone: [employer].; [employer]. Comment on above: Pattern: Regular 05-22-2012 14:27-0400 Systolic blood pressure 105 mm[Hg] Ivania Vail RN Work Phone: [place] [employer]. Comment on above: Patient Position: Sitting; Cuff Location : Right Arm; Cuff Size: Standard 04-14-2012 13:10-0400 Body height 161.29 cm Ivania Vail RN Work Phone: [employer].; [employer]. 04-14-2012 13:10-0400 Body mass index (BMI) [Ratio] 23.19 kg/m2 Ivania Vail RN Work Phone: [employer].; [employer]. 04-14-2012 13:10-0400 Body surface area Derived from formula 1.64 m2 Ivania Vail RN Work Phone: [employer].; [employer] 04-14-2012 13:10-0400 Body weight 60.33 kg Ivania Vail RN Work Phone: [employer].; [employer]. 04-14-2012 13:10-0400 Diastolic blood pressure 66 mm[Hg] Ivania Vail RN Work Phone: [employer]. Comment on above: Patient Position: Sitting; Cuff Location : Left Arm; Cuff Size: Standard 04-14-2012 13:10-0400 Heart rate 67 /min Ivania Vail RN Work Phone: [employer]. Comment on above: Pattern: Regular 04-14-2012 13:10-0400 Systolic blood pressure 99 mm[Hg] Ivania Vail RN Work Phone: [employer].; [employer]. Comment on above: Patient Position: Sitting; Cuff Location : Left Arm; Cuff Size: Standard 10-14-2011 14:29-0500 Body weight 59.42 kg Jessy Bertin KRISTINA Work Phone: [employer].; [employer]. 10-14-2011 14:29-0500 Diastolic blood pressure 61 mm[Hg] Jessy Bertin [employer] Work Phone: [employer]. Comment on above: Patient Position: Sitting; Cuff Location : Left Arm; Cuff Size: Standard 10-14-2011 14:29-0500 Heart rate 64 /min Jessy Bertin [employer] Work Phone: [employer].; [employer]. Comment on above: Pattern: Regular 10-14-2011 14:29-0500 Systolic blood pressure 105 mm[Hg] Jessy Bertin [employer] Work Phone: [employer].; [employer]. Comment on above: Patient Position: Sitting; Cuff Location : Left Arm; Cuff Size: Standard 07-15-2011 12:27-0400 Body weight 58.06 kg Jessy Castroy [employer] Work Phone: [employer]. 07-15-2011 12:27-0400 Diastolic blood pressure 70 mm[Hg] Jessy Bertin [employer] Work Phone: [employer]; [employer]. Comment on above: Patient Position: Sitting; Cuff Location : Left Arm; Cuff Size: Standard 07-15-2011 12:27-0400 Heart rate 63 /min Jessy Bertin [employer] Work Phone: [employer]. Comment on above: Pattern: Regular 07-15-2011 12:27-0400 Systolic blood pressure 106 mm[Hg] Jessy Bertin [employer] Work Phone: [employer]. Comment on above: Patient Position: Sitting; Cuff Location : Left Arm; Cuff Size: Standard 03-15-2011 10:55-0400 Body height 161.29 cm Ivania Vail RN Work Phone: [employer]; [employer]. 03-15-2011 10:55-0400 Body mass index (BMI) [Ratio] 23.36 kg/m2 Ivania Vail RN Work Phone: [employer] 03-15-2011 10:55-0400 Body surface area Derived from formula 1.64 m2 Ivania Vail RN Work Phone: [employer]. 03-15-2011 10:55-0400 Body weight 60.78 kg Ivnaia Vail RN Work Phone: [employer]. 03-15-2011 10:55-0400 Diastolic blood pressure 71 mm[Hg] Ivania Vail RN Work Phone: [employer]. Comment on above: Patient Position: Sitting; Cuff Location : Left Arm; Cuff Size: Standard 03-15-2011 10:55-0400 Heart rate 68 /min Ivania Vail RN Work Phone: [employer]. Comment on above: Pattern: Regular 03-15-2011 10:55-0400 Systolic blood pressure 99 mm[Hg] Ivania Vail RN Work Phone: [employer]. Comment on above: Patient Position: Sitting; Cuff Location : Left Arm; Cuff Size: Standard 02-03-2011 10:42-0400 Body height 161.29 cm Sharron Miranda LPN [employer]. 02-03-2011 10:42-0400 Body mass index (BMI) [Ratio] 22.98 kg/m2 Sharron Miranda LPN [employer]. 02-03-2011 10:42-0400 Body surface area Derived from formula 1.63 m2 Sharron Miranda LPN [employer]. 02-03-2011 10:42-0400 Body temperature 97.5 [degF] Sharron Miranda LPN [facility] Comment on above: Method: Tympanic 02-03-2011 10:42-0400 Body weight 59.78 kg Sharron Dennis [place] [employer] [facility] [employer] 02-03-2011 10:42-0400 Diastolic blood pressure 68 mm[Hg] Sharron Dennis NunnRuben [employer] [facility] [employer] Comment on above: Patient Position: Sitting; Cuff Location : Left Arm; Cuff Size: Standard 02-03-2011 10:42-0400 Heart rate 71 /min Sharron Dennis Miranda [employer] [facility] [employer] Comment on above: Pattern: Regular 02-03-2011 10:42-0400 Systolic blood pressure 94 mm[Hg] Sharron Dennis Ruben [employer] [facility] [employer] Comment on above: Patient Position: Sitting; Cuff Location : Left Arm; Cuff Size: Standard 11-16-2010 10:33-0500 Body height 161.29 cm Ivania Vail RN Work Phone: [place] [email or web address].; [employer] 11-16-2010 10:33-0500 Body mass index (BMI) [Ratio] 23.19 kg/m2 Ivania Vail RN Work Phone: [place] [facility].; [employer] 11-16-2010 10:33-0500 Body surface area Derived from formula 1.64 m2 Ivania Vail RN Work Phone: [place] [email or web address].; [employer] 11-16-2010 10:33-0500 Body weight 60.33 kg Ivania Vail RN Work Phone: [employer].; [employer] 11-16-2010 10:33-0500 Diastolic blood pressure 65 mm[Hg] Ivania Vail RN Work Phone: [facility] [employer]. Comment on above: Patient Position: Sitting; Cuff Location : Left Arm; Cuff Size: Standard 11-16-2010 10:33-0500 Heart rate 67 /min Ivania Vail RN Work Phone: [employer]. Comment on above: Pattern: Regular 11-16-2010 10:33-0500 Systolic blood pressure 104 mm[Hg] Ivania Vail RN Work Phone: [employer].; [employer]. Comment on above: Patient Position: Sitting; Cuff Location : Left Arm; Cuff Size: Standard 07-27-2010 11:21-0400 Body temperature 99.3 [degF] Leigha Lomeli PA-C Work Phone: [employer].; [employer]. Comment on above: Method: Rectal 07-27-2010 11:21-0400 Body weight 57.15 kg Leigha Lomeli PA-C Work Phone: [employer].; [employer]. 07-27-2010 11:21-0400 Diastolic blood pressure 69 mm[Hg] Leigha Lomeli PA-C Work Phone: [employer].; [employer]. Comment on above: Patient Position: Sitting; Cuff Location : Left Arm; Cuff Size: Standard 07-27-2010 11:21-0400 Heart rate 98 /min Leigha Lomeli PA-C Work Phone: [employer].; [employer]. Comment on above: Pattern: Regular 07-27-2010 11:21-0400 Systolic blood pressure 102 mm[Hg] Leigha Lomeli PA-C Work Phone: [employer]. Comment on above: Patient Position: Sitting; Cuff Location : Left Arm; Cuff Size: Standard Encounters Encounter Date Encounter Type Care Provider Facility Start: 06-03-2025 End: 06-03-2025 ambulatory Leigha Lomeli PA Work Phone: -[facility] Start: 06-03-2025 End: 06-03-[address] Tricia Dey MD -[facility] Work Phone: Start: 02-25-2025 End: 02-25-2025 Historical Summary Leigha Lomeli PA-C Work Phone: [facility] Start: 02-25-2025 End: 02-25-[address] Tricia Dey MD -[facility] Work Phone: Start: 02-25-2025 End: 02-25-2025 ambulatory [facility] Start: 01-01-2025 End: 01-01-2025 Office outpatient visit 15 minutes Leigha Lomeli PA-C Work Phone: [employer]. Start: 11-20-2024 End: 11-20-2024 ambulatory [facility] Start: 11-07-2024 End: 11-07-2024 Orders Leigha Marcialer PA-C Work Phone: [employer]. Start: 09-10-2024 End: 09-10-2024 ambulatory LEIGHA LOMELI [facility] Start: 08-27-2024 End: 08-27-2024 Orders Leigha Marcialer PA-C Work Phone: [facility] Start: 08-24-2024 End: 08-24-2024 Patient encounter procedure Leigha Lomeli PA-C Work Phone: [facility]; [employer]. Start: 08-24-2024 End: 08-24-2024 Periodic preventive med est patient 65yrs& older Leigha Lomeli PA-C Work Phone: [employer]. Start: 08-24-2024 Patient encounter procedure Deysi Rivera LPN [employer]. Start: 08-14-2024 End: 08-14-2024 ambulatory [facility] Start: 07-12-2024 End: 07-12-2024 ambulatory [facility] Start: 05-14-2024 End: 05-14-2024 ambulatory [facility] Facility:[facility] Start: 05-08-2024 End: 05-08-2024 ambulatory [facility] Start: 04-10-2024 End: 04-10-2024 Office outpatient visit 15 minutes Leigha ALMARAZ-C Work Phone: [facility] Start: 02-01-2024 End: 02-01-2024 ambulatory LEIGHA LOMELI [facility] Start: 07-13-2023 End: 07-13-2023 Patient encounter procedure Leigha ALMARAZ-C Work Phone: [facility] Start: 07-12-2023 End: 07-12-2023 ambulatory PA Leigha ALMARAZ Work Phone: [facility] Work Phone: Start: 07-12-2023 End: 07-12-2023 Patient encounter procedure PA Leigha ALMARAZ Work Phone: [facility] Work Phone: Start: 06-30-2023 End: 06-30-2023 Historical Summary Leigha ALMARAZ-C Work Phone: [facility] [employer] [employer] Start: 05-12-2023 End: 05-12-2023 Patient encounter procedure PA Leigha Saurabh ALMARAZ Work Phone: [facility] Work Phone: Start: 02-08-2023 End: 02-08-2023 ambulatory PA Leighaclint Lomeli PA Work Phone: [facility] Work Phone: Start: 02-08-2023 End: 02-08-2023 Patient encounter procedure PA Leigha Lomeli PA Work Phone: [facility], [facility] Start: 02-08-2023 End: 02-08-2023 Patient encounter procedure PA Leigha Lomeli PA Work Phone: [facility] Start: 11-11-2022 End: 11-11-2022 Patient encounter procedure PA Leigha ALMARAZ Work Phone: [facility] Start: 07-30-2022 End: 07-30-2022 Historical Summary Leigha ALMARAZ-Dennis Work Phone: [employer]. Start: 06-29-2022 End: 06-29-2022 Patient encounter procedure PA Leigha ALMARAZ Work Phone: [facility] Start: 06-28-2022 End: 06-28-2022 Patient encounter procedure Leigha ALMARAZ-Dennis Work Phone: [employer]. Start: 06-28-2022 End: 06-28-2022 Physical examination Leigha Lomeli PA-C Work Phone: [facility]; [employer]. Start: 05-20-2022 End: 05-20-2022 Orders Leigha ALMARAZ-Dennis Work Phone: [employer]. Start: 05-13-2022 End: 05-13-2022 Patient encounter procedure PA Leigha ALMARAZ Work Phone: [facility] Start: 02-18-2022 End: 02-18-2022 Patient encounter procedure RUFINA ALMARAZ Work Phone: [facility]-Outpatient Bone Densitometry Start: 02-11-2022 End: 02-11-2022 Patient encounter procedure PA Leigha ALMARAZ Work Phone: [facility] Start: 12-15-2021 End: 12-15-2021 Patient encounter procedure RUFINA ALMARAZ Work Phone: [facility] Start: 10-01-2021 End: 10-01-2021 Medication Leigha ALMARAZ-Dennis Work Phone: [employer]. Start: 07-17-2021 End: 07-17-2021 Office outpatient visit 15 minutes Leigha Lomeli PA-C Work Phone: [employer]. Start: 07-01-2021 End: 07-01-2021 Orders Leigha Lomeli PA-C Work Phone: [employer]. Start: 04-23-2021 End: 04-23-2021 Orders Leigha Lomeli PA-C Work Phone: [employer]. Start: 11-26-2020 End: 11-26-2020 Patient encounter procedure Leigha Lomeli PA-C Work Phone: [employer]. Start: 12-05-2019 End: 12-06-2019 Patient encounter procedure Leigha Lomeli PA-C Work Phone: [employer]. Start: 12-05-2019 End: 12-06-2019 Patient encounter status Leigha Lomeli PA-C Work Phone: [employer] Start: 11-15-2019 End: 11-15-2019 Orders Leigha Lomeli PA-C Work Phone: [employer]. Start: 11-15-2019 End: 11-15-2019 Historical Summary Leigha Lomeli PA-C Work Phone: [facility] Start: 11-17-2018 End: 11-19-2018 Office outpatient visit 15 minutes Leigha Lomeli PA-C Work Phone: [employer]. Start: 10-10-2018 End: 10-10-2018 Office outpatient visit 15 minutes Leigha Lomeli PA-C Work Phone: [employer]. Start: 10-02-2018 End: 10-02-2018 Orders Leigha Lomeli PA-C Work Phone: [facility] Start: 05-11-2018 End: 05-16-2018 Patient encounter BRYCECHRISTINE KELLER Facility:[facility] Start: 04-14-2018 End: 04-14-2018 Orders Leigha Lomeli PA-C Work Phone: [facility] Start: 04-13-2018 End: 04-18-2018 Patient encounter procedure Leigha Lomeli PA-C Work Phone: [employer]. Start: 08-17-2017 End: 08-17-2017 Patient encounter procedure Leigha Lomeli PA-C Work Phone: [employer]. Start: 08-17-2017 End: 08-17-2017 Office outpatient visit 15 minutes Leigha Lomeli PA-C Work Phone: [employer]. Start: 11-17-2016 End: 11-18-2016 Orders Leigha Lomeli PA-C Work Phone: [employer]. Start: 09-22-2016 End: 09-22-2016 Patient encounter procedure Leigha Lomeli PA-C Work Phone: [employer]. Start: 05-11-2016 End: 05-11-2016 Manual pelvic examination Jessy Denton LPN Work Phone: [facility]; [employer]. Start: 05-11-2016 End: 05-11-2016 Periodic preventive med est patient 40-64yrs Leigha Lomeli PA-C Work Phone: [employer]. Start: 02-27-2016 End: 02-27-2016 Orders Leigha Lomeli PA-C Work Phone: [employer]. Start: 10-27-2015 End: 10-27-2015 Office outpatient visit 25 minutes Leigha Lomeli PA-C Work Phone: [employer]. Start: 05-06-2015 End: 05-06-2015 Office outpatient visit 15 minutes Leigha Lomeli PA-C Work Phone: [facility] Start: 04-25-2015 End: 04-25-2015 Manual pelvic examination Leigha Lomeli PA-C Work Phone: [facility]; [employer]. Start: 04-25-2015 End: 04-25-2015 Periodic preventive med est patient 40-64yrs Leigha Marcialer PA-C Work Phone: [employer]. Start: 03-24-2015 End: 03-24-2015 Orders Leigha Marcialer PA-C Work Phone: [employer]. Start: 10-25-2014 End: 10-25-2014 Office outpatient visit 25 minutes Leigha Marcialer PA-C Work Phone: [employer]. Start: 04-26-2014 End: 04-26-2014 Manual pelvic examination Leigha Marcialer PA-C Work Phone: [employer]; [employer]. Start: 04-26-2014 End: 04-26-2014 Patient encounter procedure Leigha Marcialer PA-C Work Phone: [employer]. Start: 03-26-2014 End: 03-26-2014 Orders Leigha Lomeli PA-C Work Phone: [employer] Start: 10-26-2013 End: 10-26-2013 Patient encounter procedure Leigha Lomeli PA-C Work Phone: [employer] Start: 07-20-2013 End: 07-20-2013 Patient encounter procedure Leigha Lomeli PA-C Work Phone: [employer] Start: 07-19-2013 End: 07-19-2013 Historical Summary Leigha Lomeli PA-C Work Phone: [employer]. Start: 04-20-2013 End: 04-20-2013 Manual pelvic examination Ivania Vail RN Work Phone: [employer]; [employer]. Start: 04-20-2013 End: 04-20-2013 Patient encounter procedure Leigha Lomeli PA-C Work Phone: [employer] Start: 03-20-2013 End: 03-20-2013 Orders Leigha Lomeli PA-C Work Phone: [facility] Start: 02-08-2013 End: 02-08-2013 Patient encounter procedure Leigha Lomeli PA-C Work Phone: [employer]. Start: 10-20-2012 End: 10-20-2012 Patient encounter procedure Leigha Lomeli PA-C Work Phone: [employer]. Start: 10-12-2012 End: 10-12-2012 Orders Leigha Lomeli PA-C Work Phone: [employer]. Start: 10-11-2012 End: 10-11-2012 Orders Leigha Lomeli PA-C Work Phone: [employer]. Start: 05-26-2012 End: 05-26-2012 Medication Leigha Marcialer PA-C Work Phone: [employer]. Start: 05-22-2012 End: 05-22-2012 Patient encounter procedure Eligha Lomeli PA-C Work Phone: [facility] Start: 04-18-2012 End: 04-18-2012 Laboratory examination ordered as part of a routine general medical examination Reyna Anaya Work Phone: [facility]; [employer]. Start: 04-18-2012 End: 04-18-2012 Orders Leigha Lomeli PA-C Work Phone: [employer]. Start: 04-14-2012 End: 04-14-2012 Patient encounter procedure Leigha Lomeli PA-C Work Phone: [employer]. Start: 04-14-2012 End: 04-14-2012 Routine gynecological examination Deysi Kathleen MD Work Phone: [employer]; [employer]. Start: 10-14-2011 End: 10-14-2011 Patient encounter procedure Leigha Lomeli PA-C Work Phone: [employer]. Start: 10-04-2011 End: 10-04-2011 Medication Leigha ALMARAZ-C Work Phone: [employer]. Start: 07-15-2011 End: 07-15-2011 Patient encounter procedure Leigha ALMARAZ-C Work Phone: [employer]. Start: 03-15-2011 End: 03-15-2011 Patient encounter procedure Leigha ALMARAZ-C Work Phone: [employer]. Start: 03-15-2011 End: 03-15-2011 Routine gynecological examination Leigha ALMARAZ-C Work Phone: [employer]. Start: 03-12-2011 End: 03-12-2011 Historical Summary Leigha ALMARAZ-C Work Phone: [employer]. Start: 2011 End: 02-18-2011 Orders Leigha ALMARAZ-C Work Phone: [employer]. Start: 02-03-2011 End: 02-03-2011 Patient encounter procedure Leigha ALMARAZ-C Work Phone: [employer]. Start: 11-30-2010 End: 11-30-2010 Laboratory examination ordered as part of a routine general medical examination Leigha ALMARAZ-C Work Phone: [employer]. Start: 11-30-2010 End: 11-30-2010 Orders Leigha ALMARAZ-C Work Phone: [employer]. Start: 11-16-2010 End: 11-16-2010 Patient encounter procedure Leigha ALMARAZ-C Work Phone: [employer]. Start: 11-12-2010 End: 11-12-2010 Historical Summary Leigha Lomeli PA-C Work Phone: [facility] Start: 09-28-2010 End: 09-28-2010 Medication Leigha ALMARAZ-C Work Phone: [facility] [facility] Start: 09-28-2010 End: 09-28-2010 Historical Summary Leigha Lomeli PA-C Work Phone: [employer] [facility] Start: 07-27-2010 End: 07-27-2010 Patient encounter procedure Leigha Lomeli PA-C Work Phone: [employer] [facility] Start: 07-02-2010 End: 07-02-2010 Historical Summary Leigha Lomeli PA-C Work Phone: [employer] [facility] Start: 06-29-2010 End: 06-29-2010 Historical Summary Leigha Lomeli PA-C Work Phone: [employer] [email or web address] Manual pelvic examination Deysi Kathleen MD Work Phone: [email or web address] [employer] [email or web address] Patient encounter procedure Deysi Rivera [employer] [email or web address].; [email or web address] Patient encounter status Leigha Lomeli PA-C Work Phone: [email or web address].; [employer] [email or web address]. Physical examination Deysi polo [email or web address].; [facility] [email or web address]. Physical examination Nora marvin [employer] [email or web address].; [employer] [email or web address]. Physical examination Deysi polo LPN [email or web address].; [employer] [email or web address]. Physical examination Eva Prince MA [email or web address].; [employer] [email or web address] Procedures Date Procedure Procedure Detail Performing Clinician Start: 06-03-2025 End: 06-03-2025 Most Recent Endo Report Sarah Adkins Start: 02-25-2025 End: 02-25-2025 Most Recent Endo Report Leigha Lomeli My A-C Work Phone: Start: 08-27-2024 End: 09-12-2024 Echo tthrc r-t 2d w/wo m-mode complete rest&st Leigha Lomeli PA-C Work Phone: Start: 08-24-2024 End: 08-24-2024 Adv care pln/ no alt dcsn mkr docd or refusal Leigha ALMARAZ-Dennis Work Phone: Start: 08-24-2024 End: 08-24-2024 Depression screening Leigha ALMARAZ -C Work Phone: Start: 08-24-2024 End: 08-24-2024 Falls risk assessment documented Leigha ALMARAZ-C Work Phone: Start: 08-24-2024 End: 08-24-2024 Pos clin depres scrn f/u doc Leigha ALMARAZ-C Work Phone: Start: 08-24-2024 End: 08-24-2024 PPPS, subseq visit Leigha ALMARAZ- C Work Phone: Start: 08-24-2024 End: 08-24-2024 Pt falls assess docd w/o fall/injury past year Leigha ALMARAZ-Dennis Work Phone: Start: 08-24-2024 End: 08-24-2024 Scr dep neg, no plan reqd Leigha tse PA-Dennis Work Phone: Start: 07-23-2024 End: 07-23-2024 Examination of retina Deysi Rivera LPN Comment on above: Negative Finding. Start: 05-08-2024 End: 05-08-2024 Lab findings surveillance Deysi gordillo LPN Comment on above: 87 Start: 05-08-2024 End: 05-08-2024 Lipid panel results documented & reviewed Deysi Rivera LPN Comment on above: Abnormal. TC 169, HD L 59, LDL 99, Trig 53 Start: 07-13-2023 End: 07-13-2023 Adv care pln tlkd & alt dcsn maker docd Leigha ALMARAZ-C Work Phone: Start: 07-13-2023 End: 07-13-2023 Depression screening Leigha Sesay Work Phone: Start: 07-13-2023 End: 07-13-2023 Falls risk assessment documented Leigha Quigley Saurabh ALMARAZ-C Work Phone: Start: 07-13-2023 End: 07-13-2023 PPPS, subseq visit Leigha Quigley Saurabh ALMARAZ- C Work Phone: Start: 07-13-2023 End: 07-13-2023 Pt falls assess docd w/o fall/injury past year Leigha Soraida ALMARAZ-C Work Phone: Start: 07-13-2023 End: 07-13-2023 Scr dep neg, no plan reqd Leigha Quigley Aggie tse PA-C Work Phone: Start: 07-13-2023 End: 08-11-2023 Screening digital breast tomosynthesis bi Leigha Soraida ALMARAZ-C Work Phone: Start: 06-28-2023 End: 06-28-2023 Examination of retina Deysi Rivera LPN Comment on above: Negative Finding. Start: 02-08-2023 End: 02-08-2023 Lab findings surveillance Deysi gordillo LPN Comment on above: 135 Start: 02-08-2023 End: 02-08-2023 Lipid panel results documented & reviewed Deysi Rivera LPN Comment on above: Abnormal. TC 183, Tr ig 70 Start: 02-08-2023 End: 02-08-2023 Thyrotropin [Units/volume] in Serum or Plasma Deysi Rivera LPN Comment on above: 1.48 Start: 06-30-2022 End: 06-30-2022 Screening for malignant neoplasm of large intestine Deysi Rivera LPN Comment on above: Normal. colonoscopy - no polyps but lymphocytic colitis; next due 2027 Start: 06-28-2022 End: 06-28-2022 Adv care pln/ no alt dcsn mkr docd or refusal Leigha Soraida SAMUELSC Work Phone: Start: 06-28-2022 End: 06-28-2022 Depression screening Leigha ALMARAZ -Dennis Work Phone: Start: 06-28-2022 End: 06-28-2022 Falls risk assessment documented Leigha Lomeli PA-C Work Phone: Start: 06-28-2022 End: 06-28-2022 Initial preventive exam Leigha Lomeli PA-C Work Phone: Start: 06-28-2022 End: 06-28-2022 Pt falls assess docd w/o fall/injury past year Leigha Lomeli PA-C Work Phone: Start: 06-28-2022 End: 06-28-2022 Pure tone audiometry air only Leigha Lomeli PA-C Work Phone: Start: 06-28-2022 End: 06-28-2022 Scr dep neg, no plan reqd Leigha Marcial er PA-C Work Phone: Start: 05-20-2022 End: 06-03-2022 Screening digital breast tomosynthesis bi Leigha Lomeli PA-C Work Phone: Start: 02-18-2022 Dual energy X-ray absorptiometry PA Leigha Lomeli PA Work Phone: Start: 04-23-2021 End: 07-01-2021 Us scrotum & contents Leigha Lomeli P A-C Work Phone: Start: 06-12-2020 End: 06-12-2020 urine p:c Deysi Akhtar Start: 04-11-2020 End: 04-11-2020 Ophthalmic examination and evaluation Deysi Rivera LPN Comment on above: Normal. early catara cts, no retinopathy; Dr. Ricardo Patel Start: 12-05-2019 End: 12-05-2019 Depression screening Leigha Lomeli PA -C Work Phone: Start: 12-05-2019 End: 12-05-2019 Scr dep neg, no plan reqd Leigha Marcial er PA-C Work Phone: Start: 11-29-2019 End: 11-29-2019 Screening mammography Deysi M Miguel [employer] Comment on above: Normal. Start: 11-20-2019 End: 11-20-2019 Lab findings surveillance Deysi gordillo LPN Comment on above: Results:. 6.7- endoc rinology Start: 11-15-2019 End: 11-30-2019 Screening mammography bi 2-view breast inc cad Leigha Quigley Saurabh PA-C Work Phone: Start: 04-13-2018 End: 04-13-2018 Body mass index documented Leigha Quigley Grant aguilar PA-C Work Phone: Start: 04-13-2018 End: 04-13-2018 Most recent diastolic blood pressure < 80 mm hg Leigha Quigley Saurabh PA-C Work Phone: Start: 04-13-2018 End: 04-13-2018 Most recent systolic blood pressure <130 mm hg Leigha Quigley Saurabh PA-C Work Phone: Start: 11-14-2017 End: 11-14-2017 Colonoscopy Deysi Rivera LP N Comment on above: Normal. 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 not detected Start: 04-14-2013 End: 04-14-2013 Microscopic examination of cervical Papanicolaou smear Deysi Rivera LPN Comment on above: Normal. negative HPV ; did have another fall 2019 per Danette following bleeding while on estrogen patch - next due in 2021 Start: 03-20-2013 End: 04-13-2013 Mammogram, screening Deysi Kathleen MD Work Phone: Start: 10-20-2012 End: 10-20-2012 Shaving skin lesion 1 trunk/arm/leg diam 0.5cm/< Deysi Kathleen MD Work Phone: Start: 2011 End: 03-12-2011 Mammogram, screening Deysi Kathleen MD Work Phone: Start: 04-18-2007 End: 04-18-2007 stress test Deysi Rivera LP N Comment on above: Normal. Start: 11-14-1981 End: 11-14-1981 Appendectomy Deysi Silvalabach LP N section Deysi Silva labach [employer] Comment on above: 1979,1981,1994 section Dayna Manuel marvin [employer] Comment on above: 1979,1981,1994 section Deysi Guallpa Ricardo labach [employer] Comment on above: 1979,1981,1994 section Eva muñoz MA Comment on above: 1979,1981,1994 Ligation of fallopian tube L aura M Miguel [employer] Ligation of fallopian tube M marvin Corcoran [employer] Ligation of fallopian tube L aura M Miguel [employer] Ligation of fallopian tube Dennis Prince MA Plan of Treatment Date Care Activity Detail Author Start: 08-28-2025 Patient encounter procedure Medical; PHYSICAL - AWV [employer] Start: 28-Aug-2025 10:00-04:00 FACUNDO Lomeli Appointment Request [facility] Start: 06-03-2025 Comprehensive metabolic 2000 panel - Serum or Plasma [facility] Start: 06-03-2025 Lipid 1996 panel - Serum or Plasma [facility] Start: 06-03-2025 Thyroid stimulating hormone measurement [facility] Start: 06-03-2025 Vitamin D, 25-hydroxy measurement [facility] Start: 08-27-2024 End: 08-27-2024 Echo tthrc r-t 2d w/wo m-mode complete rest&st [facility] [employer] Start: 08-24-2024 Screening digital breast tomosynthesis bi Mammogram 3D (tomosynthesis), bilateral ([id number]) Start: 24-Aug-2024 Intent [facility] Start: 08-24-2024 Patient encounter procedure Medical; PHYSICAL - awv (bw at Endo) [facility] Start: 24-Aug-2024 13:10-04:00 FACUNDO Lomeli Appointment Request [facility] [employer]. Start: 07-13-2023 Provider Instructions for Treatment [facility] HM Issues, 50-64 female Indication: Medicare annual wellness visit, subsequent Start: 13-Jul-2023 Instruction Type: Provider Instructions for Treatment [employer]. Start: 06-29-2022 Iv infusion therapy/prophylaxis /dx 1st to 1 hr THER/PROPH/DIAG IV INF INIT [facility] Work Phone: Start: 06-28-2022 Provider Instructions for Treatment [facility] HM Issues, 50-64 female Indication: Welcome to Medicare preventive visit (Renamed from Encounter for initial preventive physical examination covered by Medicare) Start: 28-Jun-2022 Instruction Type: Provider Instructions for Treatment [facility] [employer]. Alanine aminotransfe rase [Enzymatic activity/volume] in Serum or Plasma [facility] Albumin [Mass/volume ] in Serum or Plasma [facility] Alkaline phosphatase [Enzymatic activity/volume] in Serum or Plasma [facility] Anion gap in Serum o r Plasma [facility] Bilirubin, total measurement [facility] BUN/Creatinine ratio [facility] Calcium [Mass/volume ] in Serum or Plasma [facility] Carbon dioxide, tota l [Moles/volume] in Central venous blood [facility] Cholesterol [Mass/vo lume] in Serum or Plasma [facility] Cholesterol in HDL [Mass/volume] in Serum or Plasma [facility] Creatinine [Mass/vol ume] in Serum or Plasma [facility] Glucose [Mass/volume ] in Serum or Plasma [facility] Low density lipoprot ein cholesterol measurement [facility] Measurement of renal function [facility] Potassium measurement [facility] Serum chloride measurement [facility] Sodium measurement [facility] Total cholesterol:HD L ratio measurement [facility] Total protein measurement [facility] Triglycerides measurement [facility] Urea nitrogen [Mass/ volume] in Serum or Plasma [facility] VLDL cholesterol measurement [facility] Immunizations Immunization Date Immunization Notes Care Provider Sumit anderson 12-05-2019 TD(adult) unspecifie d formulation Leigha Lomeli PA-C Work Phone: [employer]; [employer]. Comment on above: Site: Left DeltoidVI S Given: * Td (Tetanus, Diphtheria) (02/22/17) 10-27-2015 influenza, seasonal, injectable Leigha Lomeli PA-C Work Phone: [facility]; [employer] 10-27-2015 IMMUNIZATION ADMIN ([id number]) Leigha Lomeli PA-C Work Phone: [employer]; [employer] 07-20-2013 influenza, seasonal, injectable Leigha Lomeli PA-C Work Phone: [employer]; [employer] 03-28-2010 tetanus toxoid, redu truong diphtheria toxoid, and acellular pertussis vaccine, adsorbed Leigha Lomeli PA-C Work Phone: HW; [employer] 04-06-2007 pneumococcal polysaccharide vaccine, 23 valent Leigha Lomeli PA-C Work Phone: HW; [employer] 11-14-2006 pneumococcal Conjuga te, unspecified formulation Leigha Lomeli PA-C Work Phone: [email or web address] NEGATED: Highlighted row has not occurred! influenza, seasonal, injectable Leigha Lomeli PA-C Work Phone: [facility] Comment on above: VIS Given: * Inactiv ated Influenza Vaccine (06/24/09) * Inactivated Influenza Vaccine (06/08/11) * Influenza vaccine [id number], inactivated (05/15/2012) * VIS Given (Unspecified) NEGATED: Highlighted row has not occurred! influenza, seasonal, injectable Leigha Lomeli PA-C Work Phone: [facility]; [email or web address] Comment on above: VIS Given: * Inactiv ated Influenza (06/20/2015) Payers Date Payer Category Payer Self-pay [id number] 2024 Medicare [id number] 2024 Unknown [id number] 2017 Unknown [id number] 1955 Unknown [id number] 2.16.8 [id number] 1955 Unknown [id number] 2.16.8 [id number] Unknown [id number] Unknown Unknown [id number] 2.16.8 [id number] Unknown [id number] 2.16.8 [id number] Unknown [id number] 2.16.8 [id number] Unknown [id number] 2.16.8 [id number] Unknown [id number] 2.16.8 [id number] Unknown [id number] 2.16.8 [id number] Social History Date Type Detail Facility Start: 02-11-2022 End: 05-12-2023 Tobacco smoking status SCIS Unknown if ever smoked [facility] Start: 1955 Sex Assigned At Female [facility] Alcohol Use: Alcohol Use: ; 7 or fewer drinks per week. [employer] Caffeine Use Caffeine Use [employer], [employer]. Tobacco Use: Tobacco Use: ; N ever smoker. [employer]. Start: 02-09-2024 Never smoked tobacco [facility] Medical Equipment Procedure Code Equipment Code Equipment Origin al Text Equipment Identifier Dates Excision, lesion MESH,PROLENE [id number] FDA Start: 08-19-2021 Excision, lesion MESH,PROLENE [id number] FDA Start: 08-19-2021 Excision, lesion MESH,PROLENE [id number] FDA Start: 08-19-2021 Excision, lesion MESH,PROLENE [id number] FDA Start: 08-19-2021 Excision, lesion MESH,PROLENE [id number] FDA Start: 08-19-2021 Blood Sugar Diagnostic (Contour Next Test Strips) strip Start: 11-12-2021 Blood Sugar Diagnostic (Contour Next Test Strips) strip Start: 09-22-2020 End: 11-12-2021 Blood Sugar Diagnostic (Contour Next Test Strips) strip Start: 11-12-2021 End: 11-12-2021 Blood Sugar Diagnostic (Contour Next Test Strips) strip Start: 11-12-2021 Blood Sugar Diagnostic (Contour Next Test Strips) strip Start: 09-22-2020 End: 11-12-2021 Blood Sugar Diagnostic (Contour Next Test Strips) strip Start: 11-12-2021 End: 11-12-2021 Blood Sugar Diagnostic (Contour Next Test Strips) strip Start: 02-08-2023 Blood Sugar Diagnostic (Contour Next Test Strips) strip Start: 08-12-2022 End: 08-30-2022 Blood Sugar Diagnostic (Contour Next Test Strips) strip Start: 09-22-2020 End: 11-12-2021 Blood Sugar Diagnostic (Contour Next Test Strips) strip Start: 11-12-2021 End: 11-12-2021 Blood Sugar Diagnostic (Contour Next Test Strips) strip Start: 11-12-2021 End: 08-12-2022 Blood Sugar Diagnostic (Contour Next Test Strips) strip Start: 08-30-2022 End: 09-20-2022 Blood Sugar Diagnostic (Contour Next Test Strips) strip Start: 09-20-2022 End: 10-21-2022 Blood Sugar Diagnostic (Contour Next Test Strips) strip Start: 10-21-2022 End: 01-03-2023 Blood Sugar Diagnostic (Contour Next Test Strips) strip Start: 01-03-2023 End: 01-03-2023 Blood Sugar Diagnostic (Contour Next Test Strips) strip Start: 01-03-2023 End: 02-08-2023 Blood Sugar Diagnostic (Contour Next Test Strips) strip Start: 02-08-2023 Blood Sugar Diagnostic (Contour Next Test Strips) strip Start: 08-12-2022 End: 08-30-2022 Blood Sugar Diagnostic (Contour Next Test Strips) strip Start: 09-22-2020 End: 11-12-2021 Blood Sugar Diagnostic (Contour Next Test Strips) strip Start: 11-12-2021 End: 11-12-2021 Blood Sugar Diagnostic (Contour Next Test Strips) strip Start: 11-12-2021 End: 08-12-2022 Blood Sugar Diagnostic (Contour Next Test Strips) strip Start: 08-30-2022 End: 09-20-2022 Blood Sugar Diagnostic (Contour Next Test Strips) strip Start: 09-20-2022 End: 10-21-2022 Blood Sugar Diagnostic (Contour Next Test Strips) strip Start: 10-21-2022 End: 01-03-2023 Blood Sugar Diagnostic (Contour Next Test Strips) strip Start: 01-03-2023 End: 01-03-2023 Blood Sugar Diagnostic (Contour Next Test Strips) strip Start: 01-03-2023 End: 02-08-2023 LANCETS THIN (Miscellaneous) ; check sugars six times daily for 0 days Quantity: 400 {Unspecified} Refills: 11 Ordered: 08-Sep-2015 MD Deysi Kathleen Start: 08-Sep-2015 Comments: Mail order. Pt checks blood sugar 6 times/dayOne Touch Branddx: E10.9 [id number] Start: 09-08-2015 Comment on above: Mail order. Pt check s blood sugar 6 times/dayOne Touch Branddx: E10.9 OneTouch Ultra Blue In Vitro Strip ; 1 Strip six times a day for 0 days Quantity: 400 {Strip} Refills: 3 Ordered: 01-Dec-2016 ANA Dey Start: 01-Dec-2016 Comments: Mail order. dx 250.01tests 6 times a day [id number] Start: 12-01-2016 Comment on above: Mail order. dx 250.0 1tests 6 times a day Blood Sugar Diagnostic (Contour Next Test Strips) strip Start: 08-22-2023 Blood Sugar Diagnostic (Contour Next Test Strips) strip Start: 08-12-2022 End: 08-30-2022 Blood Sugar Diagnostic (Contour Next Test Strips) strip Start: 02-08-2023 End: 08-12-2023 Blood Sugar Diagnostic (Contour Next Test Strips) strip Start: 08-12-2023 End: 08-22-2023 Blood Sugar Diagnostic (Contour Next Test Strips) strip Start: 09-22-2020 End: 11-12-2021 Blood Sugar Diagnostic (Contour Next Test Strips) strip Start: 11-12-2021 End: 11-12-2021 Blood Sugar Diagnostic (Contour Next Test Strips) strip Start: 11-12-2021 End: 08-12-2022 Blood Sugar Diagnostic (Contour Next Test Strips) strip Start: 08-30-2022 End: 09-20-2022 Blood Sugar Diagnostic (Contour Next Test Strips) strip Start: 09-20-2022 End: 10-21-2022 Blood Sugar Diagnostic (Contour Next Test Strips) strip Start: 10-21-2022 End: 01-03-2023 Blood Sugar Diagnostic (Contour Next Test Strips) strip Start: 01-03-2023 End: 01-03-2023 Blood Sugar Diagnostic (Contour Next Test Strips) strip Start: 01-03-2023 End: 02-08-2023 Mental Status Date Assessment Result Facility 08-29-2023 Cognitive function Voice/Name [facility] Work Phone: 06-29-2022 Cognitive function Awake;Alert;A ppropriate;Fol lows Commands [facility] Work Phone: Evaluation note 02-25-2025 Note Date & Type Note Facility 02-25-2025 Evaluation note Diagnosis Onset Date Resolution Diabetes type 1, controlled chronic February 25, 2025 9:57am 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 chronic February 252024 9:57am Mixed hyperlipidemia chronic Apri l 2024 9:57am Osteopenia determined by x-ray chronic February 25, 2025 9:57am Presence of insulin pump chronic February 25, 2025 9:57am [facility] Work Phone: Evaluation note Note Date & Type Note Facility Evaluation note Diagnosis Onset Date Diabetes type 1, controlled chronic Hypothyroidism due to Hashim chele's thyroiditis chronic Osteopenia determined by x-ray chronic Polyneuropathy due to type 1 diabetes mellitus chronic Presence of insulin pump [facility] Diabetes type 1, controlled chronic Hypothyroidism due to Hashim chele's thyroiditis chronic Mixed hyperlipidemia chronic Osteopenia determined by x-ray chronic Polyneuropathy due to type 1 diabetes mellitus chronic Presence of insulin pump [facility] Work Phone: Evaluation note Note Date & Type Note Facility Evaluation note Diagnosis Onset Date Diabetes type 1, controlled chronic Hypothyroidism due to Hashim chele's thyroiditis chronic Mixed hyperlipidemia chronic Osteopenia determined by x-ray chronic Polyneuropathy due to type 1 diabetes mellitus chronic Presence of insulin pump [facility] Work Phone: Reason for referral (narrative) Note Date & Type Note Facility Reason for referral (narrative) No reason for referral information available [facility] Work Phone: Summary Purpose Family History Relationship Condition Age at Onset Recorded Date/T mic father Cardiac disease Unknown Cerebrovascular accident (CVA) Unknown Malignant neoplasm Unknown mother Cerebrovascular accident (CVA) Unknown Cardiac disease Unknown Cerebrovascular Accident Status:Active Comment s:Father. Mother. Paternal Grandfather. TIAs Coronary Artery Disease Status:Active Comments :Mother. Father. Dementia Status:Active Comments:Mother. Diabetes Mellitus Status:Active Comments:Broth er. Hypertension Status:Active Comments:Father. Hypothyroidism Status:Active Comments:Materna l Grandmother. Skin Cancer Status:Active Comments:Father. siblings (unknown type) Transient ischemic attack Status:Active Commen ts:Paternal Grandmother. Father. Cerebrovascular Accident Status:Active Comment s:Father. Mother. Paternal Grandfather. TIAs Coronary Artery Disease Status:Active Comments :Mother. Father. Dementia Status:Active Comments:Mother. Diabetes Mellitus Status:Active Comments:Broth er. Hypertension Status:Active Comments:Father. Hypothyroidism Status:Active Comments:Materna l Grandmother. Skin Cancer Status:Active Comments:Father. siblings (unknown type) Transient ischemic attack Status:Active Commen ts:Paternal Grandmother. Father. Cerebrovascular Accident Status:Active Comment s:Father. Mother. Paternal Grandfather. TIAs Coronary Artery Disease Status:Active Comments :Mother. Father. Dementia Status:Active Comments:Mother. Diabetes Mellitus Status:Active Comments:Broth er. Hypertension Status:Active Comments:Father. Hypothyroidism Status:Active Comments:Materna l Grandmother. Skin Cancer Status:Active Comments:Father. siblings (unknown type) Transient ischemic attack Status:Active Commen ts:Paternal Grandmother. Father. Cerebrovascular Accident Status:Active Comment s:Father. Mother. Paternal Grandfather. TIAs Coronary Artery Disease Status:Active Comments :Mother. Father. Dementia Status:Active Comments:Mother. Diabetes Mellitus Status:Active Comments:Broth er. Hypertension Status:Active Comments:Father. Hypothyroidism Status:Active Comments:Materna l Grandmother. Skin Cancer Status:Active Comments:Father. siblings (unknown type) Transient ischemic attack Status:Active Commen ts:Paternal Grandmother. Father. Cerebrovascular Accident Status:Active Comment s:Father. Mother. Paternal Grandfather. TIAs Coronary Artery Disease Status:Active Comments :Mother. Father. Dementia Status:Active Comments:Mother. Diabetes Mellitus Status:Active Comments:Broth er. Hypertension Status:Active Comments:Father. Hypothyroidism Status:Active Comments:Materna l Grandmother. Skin Cancer Status:Active Comments:Father. siblings (unknown type) Transient ischemic attack Status:Active Commen ts:Paternal Grandmother. Father. Cerebrovascular Accident Status:Active Comment s:Father. Mother. Paternal Grandfather. TIAs Coronary Artery Disease Status:Active Comments :Mother. Father. Dementia Status:Active Comments:Mother. Diabetes Mellitus Status:Active Comments:Broth er. Hypertension Status:Active Comments:Father. Hypothyroidism Status:Active Comments:Materna l Grandmother. Skin Cancer Status:Active Comments:Father. siblings (unknown type) Transient ischemic attack Status:Active Commen ts:Paternal Grandmother. Father. Cerebrovascular Accident Status:Active Comment s:Father. Mother. Paternal Grandfather. TIAs Coronary Artery Disease Status:Active Comments :Mother. Father. Dementia Status:Active Comments:Mother. Diabetes Mellitus Status:Active Comments:Broth er. Hypertension Status:Active Comments:Father. Hypothyroidism Status:Active Comments:Materna l Grandmother. Skin Cancer Status:Active Comments:Father. siblings (unknown type) Transient ischemic attack Status:Active Commen ts:Paternal Grandmother. Father. Cerebrovascular Accident Status:Active Comment s:Father. Mother. Paternal Grandfather. TIAs Coronary Artery Disease Status:Active Comments :Mother. Father. Dementia Status:Active Comments:Mother. Diabetes Mellitus Status:Active Comments:Broth er. Hypertension Status:Active Comments:Father. Hypothyroidism Status:Active Comments:Materna l Grandmother. Skin Cancer Status:Active Comments:Father. siblings (unknown type) Transient ischemic attack Status:Active Commen ts:Paternal Grandmother. Father. Cerebrovascular Accident Status:Active Comment s:Father. Mother. Paternal Grandfather. TIAs Coronary Artery Disease Status:Active Comments :Mother. Father. Dementia Status:Active Comments:Mother. Diabetes Mellitus Status:Active Comments:Broth er. Hypertension Status:Active Comments:Father. Hypothyroidism Status:Active Comments:Materna l Grandmother. Skin Cancer Status:Active Comments:Father. siblings (unknown type) Transient ischemic attack Status:Active Commen ts:Paternal Grandmother. Father. Cerebrovascular Accident Status:Active Comment s:Father. Mother. Paternal Grandfather. TIAs Coronary Artery Disease Status:Active Comments :Mother. Father. Dementia Status:Active Comments:Mother. Diabetes Mellitus Status:Active Comments:Broth er. Hypertension Status:Active Comments:Father. Hypothyroidism Status:Active Comments:Materna l Grandmother. Skin Cancer Status:Active Comments:Father. siblings (unknown type) Transient ischemic attack Status:Active Commen ts:Paternal Grandmother. Father. Cerebrovascular Accident Status:Active Comment s:Father. Mother. Paternal Grandfather. TIAs Coronary Artery Disease Status:Active Comments :Mother. Father. Dementia Status:Active Comments:Mother. Diabetes Mellitus Status:Active Comments:Broth er. Hypertension Status:Active Comments:Father. Hypothyroidism Status:Active Comments:Materna l Grandmother. Skin Cancer Status:Active Comments:Father. siblings (unknown type) Transient ischemic attack Status:Active Commen ts:Paternal Grandmother. Father. Cerebrovascular Accident Status:Active Comment s:Father. Mother. Paternal Grandfather. TIAs Coronary Artery Disease Status:Active Comments :Mother. Father. Dementia Status:Active Comments:Mother. Diabetes Mellitus Status:Active Comments:Broth er. Hypertension Status:Active Comments:Father. Hypothyroidism Status:Active Comments:Materna l Grandmother. Skin Cancer Status:Active Comments:Father. siblings (unknown type) Transient ischemic attack Status:Active Commen ts:Paternal Grandmother. Father. Cerebrovascular Accident Status:Active Comment s:Father. Mother. Paternal Grandfather. TIAs Coronary Artery Disease Status:Active Comments :Mother. Father. Dementia Status:Active Comments:Mother. Diabetes Mellitus Status:Active Comments:Broth er. Hypertension Status:Active Comments:Father. Hypothyroidism Status:Active Comments:Materna l Grandmother. Skin Cancer Status:Active Comments:Father. siblings (unknown type) Transient ischemic attack Status:Active Commen ts:Paternal Grandmother. Father. Cerebrovascular Accident Status:Active Comment s:Father. Mother. Paternal Grandfather. TIAs Coronary Artery Disease Status:Active Comments :Mother. Father. Dementia Status:Active Comments:Mother. Diabetes Mellitus Status:Active Comments:Broth er. Hypertension Status:Active Comments:Father. Hypothyroidism Status:Active Comments:Materna l Grandmother. Skin Cancer Status:Active Comments:Father. siblings (unknown type) Transient ischemic attack Status:Active Commen ts:Paternal Grandmother. Father. Cerebrovascular Accident Status:Active Comment s:Father. Mother. Paternal Grandfather. TIAs Coronary Artery Disease Status:Active Comments :Mother. Father. Dementia Status:Active Comments:Mother. Diabetes Mellitus Status:Active Comments:Broth er. Hypertension Status:Active Comments:Father. Hypothyroidism Status:Active Comments:Materna l Grandmother. Skin Cancer Status:Active Comments:Father. siblings (unknown type) Transient ischemic attack Status:Active Commen ts:Paternal Grandmother. Father. Cerebrovascular Accident Status:Active Comment s:Father. Mother. Paternal Grandfather. TIAs Coronary Artery Disease Status:Active Comments :Mother. Father. Dementia Status:Active Comments:Mother. Diabetes Mellitus Status:Active Comments:Broth er. Hypertension Status:Active Comments:Father. Hypothyroidism Status:Active Comments:Materna l Grandmother. Skin Cancer Status:Active Comments:Father. siblings (unknown type) Transient ischemic attack Status:Active Commen ts:Paternal Grandmother. Father. Cerebrovascular Accident Status:Active Comment s:Father. Mother. Paternal Grandfather. TIAs Coronary Artery Disease Status:Active Comments :Mother. Father. Dementia Status:Active Comments:Mother. Diabetes Mellitus Status:Active Comments:Broth er. Hypertension Status:Active Comments:Father. Hypothyroidism Status:Active Comments:Materna l Grandmother. Skin Cancer Status:Active Comments:Father. siblings (unknown type) Transient ischemic attack Status:Active Commen ts:Paternal Grandmother. Father. Cerebrovascular Accident Status:Active Comment s:Father. Mother. Paternal Grandfather. TIAs Coronary Artery Disease Status:Active Comments :Mother. Father. Dementia Status:Active Comments:Mother. Diabetes Mellitus Status:Active Comments:Broth er. Hypertension Status:Active Comments:Father. Hypothyroidism Status:Active Comments:Materna l Grandmother. Skin Cancer Status:Active Comments:Father. siblings (unknown type) Transient ischemic attack Status:Active Commen ts:Paternal Grandmother. Father. Cerebrovascular Accident Status:Active Comment s:Father. Mother. Paternal Grandfather. TIAs Coronary Artery Disease Status:Active Comments :Mother. Father. Dementia Status:Active Comments:Mother. Diabetes Mellitus Status:Active Comments:Broth er. Hypertension Status:Active Comments:Father. Hypothyroidism Status:Active Comments:Materna l Grandmother. Skin Cancer Status:Active Comments:Father. siblings (unknown type) Transient ischemic attack Status:Active Commen ts:Paternal Grandmother. Father. Cerebrovascular Accident Status:Active Comment s:Father. Mother. Paternal Grandfather. TIAs Coronary Artery Disease Status:Active Comments :Mother. Father. Dementia Status:Active Comments:Mother. Diabetes Mellitus Status:Active Comments:Broth er. Hypertension Status:Active Comments:Father. Hypothyroidism Status:Active Comments:Materna l Grandmother. Skin Cancer Status:Active Comments:Father. siblings (unknown type) Transient ischemic attack Status:Active Commen ts:Paternal Grandmother. Father. Cerebrovascular Accident Status:Active Comment s:Father. Mother. Paternal Grandfather. TIAs Coronary Artery Disease Status:Active Comments :Mother. Father. Dementia Status:Active Comments:Mother. Diabetes Mellitus Status:Active Comments:Broth er. Hypertension Status:Active Comments:Father. Hypothyroidism Status:Active Comments:Materna l Grandmother. Skin Cancer Status:Active Comments:Father. siblings (unknown type) Transient ischemic attack Status:Active Commen ts:Paternal Grandmother. Father. Cerebrovascular Accident Status:Active Comment s:Father. Mother. Paternal Grandfather. TIAs Coronary Artery Disease Status:Active Comments :Mother. Father. Dementia Status:Active Comments:Mother. Diabetes Mellitus Status:Active Comments:Broth er. Hypertension Status:Active Comments:Father. Hypothyroidism Status:Active Comments:Materna l Grandmother. Skin Cancer Status:Active Comments:Father. siblings (unknown type) Transient ischemic attack Status:Active Commen ts:Paternal Grandmother. Father. Cerebrovascular Accident Status:Active Comment s:Father. Mother. Paternal Grandfather. TIAs Coronary Artery Disease Status:Active Comments :Mother. Father. Dementia Status:Active Comments:Mother. Diabetes Mellitus Status:Active Comments:Broth er. Hypertension Status:Active Comments:Father. Hypothyroidism Status:Active Comments:Materna l Grandmother. Skin Cancer Status:Active Comments:Father. siblings (unknown type) Transient ischemic attack Status:Active Commen ts:Paternal Grandmother. Father. Advance Directives Advance Directive Response Recorded Date/ Time Living Will Yes August 18 8:19am Power of Eight Arm Operator Yes August 18 021 8:19am Chief Complaint and Reason for Visit Chief Complaint 6 M FU 4 M FU OSTEOPENIA Reason for Visit Diabetes type 1, con trolled 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 Osteopenia determined by x-ray Polyneuropathy due to type 1 diabetes mellitus Presence of insulin pump Diabetes type 1, controlled 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 Mixed hyperlipidemia Osteopenia determined by x-ray Polyneuropathy due to type 1 diabetes mellitus Presence of insulin pump Chief Complaint 3 M FU RECLAST Reason for Visit Diabetes type 1, con trolled 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 Mixed hyperlipidemia Osteopenia determined by x-ray Polyneuropathy due to type 1 diabetes mellitus Presence of insulin pump Chief Complaint 3 M FU 3 M FU Reason for Visit Diabetes type 1, con trolled 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 Osteopenia determined by x-ray Polyneuropathy due to type 1 diabetes mellitus Presence of insulin pump Diabetes type 1, controlled 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 Mixed hyperlipidemia Osteopenia determined by x-ray Polyneuropathy due to type 1 diabetes mellitus Presence of insulin pump Chief Complaint Admit Date 3 M FU February 25, 2025 9:5 7am E ORDERS June 03, 2025 9:52 am 3 M FU June 03, 2025 10:2 8am Reason for Visit Admit Date Diabetes type 1, controlled February 25, 2025 9:57am Hypothyroidism due to Marko's thyroi ditis February 25, 2025 9:57am Mixed hyperlipidemia February 25, 2025 9: 57am Osteopenia determined by x-ray February 9:57am Presence of insulin pump February 25 9:57am Additional Source Comments INFORMATION SOURCE (unrecogn ized section and content) DATE CREATED AUTHOR 05/25/2018 [facility] ([place] DATE CREATED AUTHOR AUTHOR'S ORGANIZ ATION 11/15/2019 [facility] DATE CREATED AUTHOR AUTHOR'S ORGANIZ ATION 09/10/2024 [facility] DATE CREATED AUTHOR AUTHOR'S ORGANIZ ATION 02/25/2025 [facility] Goals (unrecognized section and content) Goals may be documented in a n alternate sectionGoals may be documented in an alternate sectionGoals may be documented in an alternate sectionGoals may be documented in an alternate sectionGoals may be documented in an alternate section Care Teams (unrecognized sec tion and content) Team Status: Active Member Role Status Dates RUFINA Ross Primary Care Provider Active Team Status: Inactive Member Role Status Dates RUFINA Ross Primary Care Provider, Referring Provider Active Dr. Tricia Dey MD Attending Provider Active Team Status: Inactive Member Role Status Dates RUFINA Ross Primary Care Provider Active Dr. Tricia Dey MD Attending Provider, Referring Provi abbi Active Team Status: Active Member Role/Relationship Status Dates RUFINA Ross Primary Care Provider Active Team Status: Inactive Member Role/Relationship Status Dates RUFINA Ross Primary Care Provider Active Start: February 25, 2025 End: February 25, 2025 RUFINA Ross Referring Provider Active Start: February 25, 2025 End: February 25, 2025 Dr. Tricia Dey MD Attending Provider Active Sta rt: February 25, 2025 End: February 25, 2025 Team Status: Active Member Role/Relationship Status Dates RUFINA Ross Primary Care Provider Active Start: June 03, 2025 Dr. Tricia Dey MD Attending Provider Active Sta rt: June 03, 2025 Dr. Tricia Dey MD Referring Provider Active Sta rt: June 03, 2025 Team Status: Inactive Member Role/Relationship Status Dates RUFINA Ross Primary Care Provider Active Start: June 03, 2025 End: June 03, 2025 RUFINA Ross Referring Provider Active Start: June 03, 2025 End: June 03, 2025 Dr. Tricia Dey MD Attending Provider Active Sta rt: June 03, 2025 End: June 03, 2025 FOR RECORDS PERTAINING TO PATIENTS WHO ARE OR HAVE BEEN ENROLLED IN A CHEMICAL DEPENDENCY/SUBSTANCEABUSE PROGRAM, SOME INFORMATION MAY BE OMITTED. This clinical summary was aggregated from multiple sources. Caution should be exercised in using it in the provision of clinical care. This summary normalizes information from multiple sources, and as a consequence, information in this document may materially change the coding, format and clinical context of patient data. In addition, data may be omitted in some cases. CLINICAL DECISIONS SHOULD BE BASED ON THE PRIMARY CLINICAL RECORDS. [employer] provides no warranty or guarantee of the accuracy or completeness of information in this document.
== END | disposition home or self-care (01) ==
LOC: LAB 09:55
PROVIDERS: PCP Physician Assistant; Referring Provider Internal Medicine Endocrinology, Diabetes & Metabolism; Visit Provider Internal Medicine Endocrinology, Diabetes & Metabolism
DX: E10.42 Type 1 diabetes mellitus with diabetic polyneuropathy (principal); Z79.4 Long term (current) use of insulin; E03.8 Other specified hypothyroidism; E06.3 Autoimmune thyroiditis; M85.80 Other specified disorders of bone density and structure, unspecified site; E55.9 Vitamin D deficiency, unspecified; E78.2 Mixed hyperlipidemia; Z96.41 Presence of insulin pump (external) (internal)
CPT/HCPCS: 36415; 80053; 80061; 82043; 82306; 82570; 84443

== ENCOUNTER 2025-07-17 14:56 | Outpatient (CLI) | payer MEDICARE, OTHER, SELFPAY ==
[2025-07-17 15:02] VITALS: BP 116/73; PULSE 61; RESP 16; TEMP 35.8; O2SAT 99; BMI 22.3
[2025-07-17] MEDS: 0.9% NaCl Peripheral Flush Adult IV (15:09)
[2025-07-17 15:36] VITALS: BP 105/64; PULSE 60
== END 2025-07-17 23:59 | disposition home or self-care (01) ==
LOC: MEDOUTP 14:56
PROVIDERS: PCP Physician Assistant; Referring Provider Internal Medicine Endocrinology, Diabetes & Metabolism; Visit Provider Internal Medicine Endocrinology, Diabetes & Metabolism
DX: M81.0 Age-related osteoporosis without current pathological fracture (principal)
CPT/HCPCS: 96365; A4216; J3489